=== PATIENT | male | born 1955 | race Caucasian/White ===

== ENCOUNTER → 2019-04-02 10:42 | Outpatient (BNVA) | payer OTHER, SELFPAY | PROVIDERS: Family Provider Physician Assistant; PCP Physician Assistant; Visit Provider Nurse Practitioner | DX: G89.29 Other chronic pain (principal); M54.41 Lumbago with sciatica, right side; M54.42 Lumbago with sciatica, left side; M25.562 Pain in left knee; E11.41 Type 2 diabetes mellitus with diabetic mononeuropathy; Z79.891 Long term (current) use of opiate analgesic | CPT/HCPCS: 99213 ==

== ENCOUNTER → 2019-05-15 09:34 | Outpatient (BNVA) | payer OTHER, SELFPAY | PROVIDERS: Family Provider Physician Assistant; PCP Physician Assistant; Referring Provider Internal Medicine; Visit Provider Nurse Practitioner | DX: M54.5 Low back pain (principal); Z79.891 Long term (current) use of opiate analgesic | CPT/HCPCS: 99214 ==

== ENCOUNTER → 2019-09-16 08:42 | Outpatient (BNVA) | payer OTHER, SELFPAY | PROVIDERS: Family Provider Physician Assistant; PCP Physician Assistant; Visit Provider Nurse Practitioner | DX: G89.29 Other chronic pain (principal); M54.9 Dorsalgia, unspecified; Z79.891 Long term (current) use of opiate analgesic | CPT/HCPCS: 99213 ==

== ENCOUNTER → 2019-12-25 08:23 | Outpatient (BNVA) | payer MEDICARE, SELFPAY | PROVIDERS: Family Provider Physician Assistant; PCP Physician Assistant; Referring Provider Physician Assistant; Visit Provider Internal Medicine | DX: E13.9 Other specified diabetes mellitus without complications (principal); E66.01 Morbid (severe) obesity due to excess calories; Z68.43 Body mass index [BMI] 50.0-59.9, adult; E78.5 Hyperlipidemia, unspecified; I10 Essential (primary) hypertension | CPT/HCPCS: 99204 ==

== ENCOUNTER 2020-05-02 09:50 | Outpatient (CLI) | payer OTHER, SELFPAY ==
--- NOTE | 2020-05-02 10:58 | PFTS_ITS ---
Date of Study:05/02/20 Date of Dictation: 05/02/2020 MECHANICS: Forced vital capacity (FVC) is normal. Forced expiratory volume in one second (FEV1) is normal . FEV1/FVC is normal . FLOW VOLUME LOOP: Normal . LUNG VOLUMES: Total lung capacity (TLC) is mildly reduced . Residual volume (RV) is mildly reduced. DIFFUSING CAPACITY FOR CARBON MONOXIDE: Normal . INTERPRETATION: The spirometry is normal. Mildly reduced lung volumes suggestive of restrictive lung disease. Normal gas transfer. Please correlate clinically. MTDD
== END 2020-05-02 09:51 | disposition home or self-care (01) ==
PROVIDERS: PCP Physician Assistant; Visit Provider Physician Assistant
DX: R05 Cough (principal)
CPT/HCPCS: 94010; 94726; 94729

== ENCOUNTER → 2020-06-14 09:41 | Outpatient (BNVA) | payer OTHER, SELFPAY | PROVIDERS: PCP Physician Assistant; Visit Provider Internal Medicine Rheumatology | DX: M19.90 Unspecified osteoarthritis, unspecified site (principal); Z79.899 Other long term (current) drug therapy; Z11.59 Encounter for screening for other viral diseases; Z11.1 Encounter for screening for respiratory tuberculosis; R76.8 Other specified abnormal immunological findings in serum; E11.65 Type 2 diabetes mellitus with hyperglycemia; E11.42 Type 2 diabetes mellitus with diabetic polyneuropathy; Z79.4 Long term (current) use of insulin | CPT/HCPCS: 99204 ==

== ENCOUNTER → 2020-07-20 10:49 | Outpatient (BNVA) | payer OTHER, SELFPAY | PROVIDERS: PCP Physician Assistant; Visit Provider Internal Medicine Rheumatology | DX: M19.90 Unspecified osteoarthritis, unspecified site (principal); Z11.59 Encounter for screening for other viral diseases; Z11.1 Encounter for screening for respiratory tuberculosis | CPT/HCPCS: 36415; 80076; 82565; 85025; 86140; 86480; 86704; 86803; 87340 ==

== ENCOUNTER 2020-08-18 15:18 | Outpatient (CLI) | payer OTHER, MEDICARE, SELFPAY ==
--- NOTE | 2020-08-18 15:45 | USCV_ITS ---
Manuel Somers Age: 65 Gender: M : 1955 Exam Date: 08/18/2020 15:40 Ordering Phys: Speedy Aparicio M.D ([email or web address]) Technologist: Exam Location: [facility] [place] Indication: SOB BP: 134 / 74 HR: 97 Rhythm: Sinus Technical Quality: Adequate MEASUREMENTS (Male / Female) Normal Values 2D ECHO LV Diastolic Diameter PLAX 3.5 cm 4.2 - 5.9 / 3.9 - 5.3 cm LV Systolic Diameter PLAX 2.8 cm IVS Diastolic Thickness 1.4 cm 0.6 - 1.0 / 0.6 - 0.9 cm IVS Systolic Thickness 1.8 cm LVPW Diastolic Thickness 1.1 cm 0.6 - 1.0 / 0.6 - 0.9 cm LVPW Systolic Thickness 1.6 cm LVOT Diameter 2.1 cm LV Ejection Fraction 2D Teich 39.0 % LV Ejection Fraction MOD 2C 67.9 % LV Ejection Fraction 2C AL 70.0 % LA Diameter 3.9 cm LA Width 5.3 cm LA Height 6.4 cm RA Width 4.1 cm RA Height 5.9 cm M-MODE LV Diastolic Diameter MM 5.0 cm 4.2 - 5.9 / 3.9 - 5.3 cm LV Systolic Diameter MM 3.3 cm LV Ejection Fraction MM Teich 61.2 % IVS Diastolic Thickness MM 1.3 cm 0.6 - 1.0 / 0.6 - 0.9 cm IVS Systolic Thickness MM 1.8 cm LVPW Diastolic Thickness MM 1.1 cm 0.6 - 1.0 / 0.6 - 0.9 cm LVPW Systolic Thickness MM 1.9 cm RV Diastolic Diameter MM 2.6 cm MV E Point Septal Separation 1.2 cm DOPPLER AV Peak Velocity 151.7 cm/s LVOT Peak Velocity 83.0 cm/s AV Area Cont Eq vti 2.2 cm squared AV Area Cont Eq pk 1.9 cm squared MV Area PHT 5.0 cm squared Mitral E to A Ratio 2.5 MV E' Velocity 61.4 cm/s Mitral E to MV E' Ratio 8.2 Mitral E to LV E' Lateral Ratio 7.9 Mitral E to LV E' Septal Ratio 8.6 TR Peak Velocity 120.3 cm/s TR Peak Gradient 5.8 mmHg PV Peak Velocity 129.0 cm/s FINDINGS Left Ventricle Normal left ventricular size. LV systolic function is normal with EF of 60-65%. No regional wall motion abnormalities. Diastolic function can not be assessed because of atrial fibrillation. Right Ventricle The right ventricle is normal in size and function. Right Atrium The right atrium is grossly normal sized Left Atrium The left atrium is grossly normal sized Mitral Valve Not well visualized. No significant stenosis or prolapse. There is no mitral regurgitation. Aortic Valve Not well visualized. No significant sclerosis or stenosis. There is no aortic regurgitation. Tricuspid Valve Not well visualized Pulmonic Valve Not visualized Pericardium Not well visualized Aorta Not well visualized CONCLUSIONS LV systolic function is normal with EF of 60-65% Diastolic function can not be assessed because of atrial fibrillation Valvular structures are not well visualized but no gross abnormalities noted Compared to prior echocardiogram from 09/24/2012, no signficant changes are noted Speedy Aparicio MD (Electronically Signed) Final Date: 18 Aug 2020 18:01 S
[2020-08-18] MEDS: perflutren protein-a microsphr 0.22 mg/mL SDV 3 mL IV (16:52)
== END 2020-08-18 15:19 | disposition home or self-care (01) ==
LOC: US 15:23
PROVIDERS: PCP Physician Assistant; Visit Provider Internal Medicine
DX: R06.02 Shortness of breath (principal)
CPT/HCPCS: 80048; 83880; C8924

== ENCOUNTER 2020-11-02 12:08 | Outpatient (CLI) | payer OTHER, MEDICARE, SELFPAY ==
[2020-11-02 13:29] LABS: Anion Gap 13.4 (5-19); Blood Urea Nitrogen 17 mg/dL (8-23); Calcium 8.8 mg/dL (8.5-10.5); Carbon Dioxide 28 mmol/L (22-29); Chloride 97 mmol/L (98-107); Glomerular Filtration Rate 84.2 mL/min (90-130); Glucose 323 mg/dL (65-115); NT Pro B Type Natriuretic Pept 203 pg/mL (0-125); Osmolality Calculated 292 mOsm/kg (285-295); Potassium 4.4 mmol/L (3.5-5.1); Sodium 134 mmol/L (136-145)
== END 2020-11-02 12:09 | disposition home or self-care (01) ==
PROVIDERS: PCP Physician Assistant; Visit Provider Internal Medicine Pulmonary Disease
DX: R22.43 Localized swelling, mass and lump, lower limb, bilateral (principal); R06.01 Orthopnea
CPT/HCPCS: 36415; 80048; 83735; 83880

== ENCOUNTER → 2021-01-04 08:24 | Outpatient (BNVA) | payer OTHER, SELFPAY | PROVIDERS: PCP Physician Assistant; Visit Provider Internal Medicine | DX: E11.40 Type 2 diabetes mellitus with diabetic neuropathy, unspecified (principal); E66.01 Morbid (severe) obesity due to excess calories; Z68.43 Body mass index [BMI] 50.0-59.9, adult; E78.5 Hyperlipidemia, unspecified; I10 Essential (primary) hypertension; Z79.4 Long term (current) use of insulin | CPT/HCPCS: 99214 ==

== ENCOUNTER → 2021-03-10 11:51 | Outpatient (BNVA) | payer OTHER, SELFPAY | PROVIDERS: PCP Physician Assistant; Visit Provider Internal Medicine | DX: R06.02 Shortness of breath (principal); E78.5 Hyperlipidemia, unspecified; I48.20 Chronic atrial fibrillation, unspecified | CPT/HCPCS: 80048; 83880; 85025 ==

== ENCOUNTER → 2021-07-06 09:15 | Outpatient (BNVA) | payer OTHER, SELFPAY | PROVIDERS: PCP Physician Assistant; Visit Provider Internal Medicine Rheumatology | DX: M15.9 Polyosteoarthritis, unspecified (principal); R76.8 Other specified abnormal immunological findings in serum; Z79.899 Other long term (current) drug therapy; E11.42 Type 2 diabetes mellitus with diabetic polyneuropathy; Z79.4 Long term (current) use of insulin | CPT/HCPCS: 99214 ==

== ENCOUNTER → 2021-09-15 09:07 | Outpatient (BNVA) | payer OTHER, SELFPAY | PROVIDERS: PCP Physician Assistant; Visit Provider Internal Medicine | DX: I10 Essential (primary) hypertension (principal); I48.20 Chronic atrial fibrillation, unspecified; E78.5 Hyperlipidemia, unspecified; E66.01 Morbid (severe) obesity due to excess calories; Z68.43 Body mass index [BMI] 50.0-59.9, adult; Z79.01 Long term (current) use of anticoagulants | CPT/HCPCS: 99214 ==

== ENCOUNTER → 2021-11-15 07:44 | Outpatient (BNVA) | payer OTHER, SELFPAY | PROVIDERS: PCP Physician Assistant; Referring Provider Family Medicine; Visit Provider Internal Medicine | DX: E13.65 Other specified diabetes mellitus with hyperglycemia (principal); E13.649 Other specified diabetes mellitus with hypoglycemia without coma; Z79.4 Long term (current) use of insulin; Z79.84 Long term (current) use of oral hypoglycemic drugs; E88.81 Metabolic syndrome and other insulin resistance; E78.5 Hyperlipidemia, unspecified; E66.01 Morbid (severe) obesity due to excess calories; Z68.43 Body mass index [BMI] 50.0-59.9, adult | CPT/HCPCS: 99215 ==

== ENCOUNTER 2022-01-20 20:35 | Inpatient (IN) | payer OTHER, SELFPAY ==
[2022-01-20] VITALS (15 sets, daily range): BP systolic 114–161; BP diastolic 66–84; PULSE 77–164; RESP 19–36; TEMP 37.6; O2SAT 95–99; BMI 58.2
--- NOTE | 2022-01-20 21:10 | XRR_ITS ---
PROCEDURE INFORMATION: Exam: XR Chest Exam date and time: 01/20/2022 9:25 PM Age: 66 years old Clinical indication: Shortness of breath; Additional info: SOB TECHNIQUE: Imaging protocol: Radiologic exam of the chest. Views: 1 view. COMPARISON: CR XR chest 2V* [id number] 03/09/2020 9:52 AM FINDINGS: Lungs: See Heart/Mediastinum finding. Pleural spaces: Unremarkable. No pleural effusion. No pneumothorax. Heart/Mediastinum: Cardiomegaly and mild pulmonary vascular congestion with minimal ground-glass airspace opacities suggestive of alveolar edema. Bones/joints: Unremarkable. XR/XR chest 1V portable [id number] IMPRESSION: Cardiomegaly and mild pulmonary vascular congestion with minimal ground-glass airspace opacities suggestive of alveolar edema.
--- NOTE | 2022-01-20 21:10 | ECG_ITS ---
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 Measurements Intervals [place] Rate: 94 P: IA: QRS: -52 QRSD: 110 T: 30 QT: 284 QTc: 357 Interpretive Statements ATRIAL FIBRILLATION LEFT AXIS DEVIATION [QRS AXIS < -30] PATTERN CONSISTENT WITH PULMONARY DISEASE INCOMPLETE RIGHT BUNDLE BRANCH BLOCK [90+ ms QRS DURATION, TERMINAL R IN V1/V2, 40+ ms S IN I/aVL/V4/V5/V6] NONSPECIFIC T-WAVE ABNORMALITY INTERPRETATION BASED ON A DEFAULT AGE OF 40 YEARS No previous ECG available for comparison Electronically Signed On 01-24-2022 0:16:35 CDT by Bridgette Staton M.D. [email or web address]
--- NOTE | 2022-01-20 21:13 | W.ED.SOB ---
HPI - SOB/Dyspnea General: Chief Complaint: Shortness of Breath/Dyspnea Stated Complaint: SOB Time Seen by Provider: 01/20/22 20:38 Source: patient History of Present Illness: HPI Narrative: 66-year-old male patient presenting with worsening shortness of breath over the past several days. He notes a cough with some sputum production that is gross in color. He denies any chest pain. He denies fever. He denies wheezing. He was given 2 breathing treatments in route by EMS with some improvement. He has noticed that his legs have increased in swelling recently. MD elicited complaint: shortness of breath Pertinent past history: congestive heart failure Onset (ago): day(s) Context: recent illness Timing: progressively worsening Severity: moderate Exacerbating factors: lying flat and exertion Relieving factors: oxygen Known history of: congestive heart failure Associated symptoms: Reports chest congestion, cough and nausea; Deny abdominal pain, chest pain, dizziness, fever(s) or vomiting Treatment prior to arrival: oxygen and bronchodilator Review of Systems Const: Denies: fever(s) ENMT: Reports: throat pain and hoarseness Card: Denies: chest pain Resp: Reports: chest congestion GI: Reports: nausea; Denies: abdominal pain or vomiting Skin/Breast: Denies: rash Neuro: Denies: dizziness PFSH ED PFSH: Medical History Anticoagulant long-term use Atrial fibrillation Chronic back pain Depression Diabetes mellitus type 2, uncontrolled Diabetic neuropathy Dyslipidemia High risk medication use Immunization counseling Inflammatory arthritis Obesity BARBARA (obstructive sleep apnea) Osteoarthritis Positive sm/MARKETING INFORMATION COORDINATOR antibody + MARKETING INFORMATION COORDINATOR antibody, negative Quinonez, negative DS DNA ab Surgical History History of arthroscopic knee surgery bilateral knees Status post ablation of atrial fibrillation Family History Father Family history of premature coronary artery disease Myocardial Infarction Mother Cancer Other CAD (coronary artery disease) Diabetes Hyperlipidemia Hypertension Rheumatoid arthritis Denies family history of Lupus Chronic kidney disease (CKD) Lung disease Stroke Social History Smoking and tobacco status: never smoked Second hand smoke exposure: Yes Smoking risk assessment/counseling performed?: Yes Alcohol intake: former Lives independently: Yes Household members: spouse Marital status: service: Yes Current occupational status: retired and disabled Pets and animals: No History of recent travel: No Current gender identity: Male Physical Exam Const: GENERAL APPEARANCE: cooperative and frail appearing NUTRITIONAL APPEARANCE: obese HENMT: COMMON NORMALS: normocephalic, atraumatic and Normal external nose present HEAD & SCALP: normocephalic and atraumatic FACE & SINUS: normal facial exam NOSE: Normal external nose present Eye: COMMON NORMALS: Equal, round and reactive pupils present and EOMs intact bilaterally PUPIL: Yes Equal, round and reactive pupils present Neck/C-Spine: GENERAL: Yes trachea midline Chest: CHEST: Yes Symmetrical chest wall rise and No tenderness Resp: COMMON NORMALS: normal respiratory effort and clear to auscultation bilaterally AUSCULTATION: clear to auscultation bilaterally and diminished lung sounds Cardio: RATE: tachycardic RHYTHM: abnormal rhythm irregularly irregular GI: COMMON NORMALS: Normal to inspection, nondistended, normoactive bowel sounds present and Soft to palpation PALPATION: Yes Soft to palpation Extremity: GENERAL: Yes edema (2+) Neuro: ROSE COMA SCALE: document GCS findings Rose coma scale eye opening: Spontaneous Rose coma scale verbal response: Orientated Rose coma scale motor response: Obey commands Rose coma scale total score: 15 Psych: COMMON NORMALS: mental status grossly normal and cooperative Course Vital Signs: Vital signs: Vital Signs Temperature 97.9 F 01/21/22 11:33 Pulse Rate 100 01/21/22 14:48 Respiratory Rate 18 01/21/22 14:05 Blood Pressure 107/64 01/21/22 11:33 Pulse Oximetry 98 01/21/22 14:05 Oxygen Delivery Me thod 01/21/22 14:05 Oxygen Flow Rate 3 01/21/22 14:05 MDM - SOB/Dyspnea Medical Decision Making Patient is oxygen dependent now. He is tachycardic, in atrial fibrillation. He has bilateral infiltrates on chest X-ray. As white blood cell count is 19.5. Is potassium is 3.2 and repleted. He has pulmonary vascular congestion on chest X-ray as well. His COVID-19 antigen is negative. Is BNP is only 613. He is given Iv lasix, nebulizer treatments, and antibiotics. He'll be admitted. Hospitalist will see the patient. Lab Data : 01/20/22 20:50 10/23/22 08:21 Labs/Radiology: Radiology Impressions Chest X-Ray 01/20/22 21:10 IMPRESSION: Cardiomegaly and mild pulmonary vascular congestion with minimal ground-glass airspace opacities suggestive of alveolar edema. Laboratory Results WBC 19.5 10^3/uL (4.0-10.0) H 01/20/22 20:50 RBC 4.98 10^6/uL (4.1-5.3) 01/20/22 20:50 Hgb 12.3 g/dL (11.7-16.6) 01/20/22 20:50 Hct 40.0 % (42.0-52.0) L 01/20/22 20:50 MCV 80.3 fl (80-94) 01/20/22 20:50 MCH 24.7 pg (28.0-34.0) L 01/20/22 20:50 MCHC 30.8 g/dL (30.0-36.0) 01/20/22 20:50 RDW 15.9 % (12.1-15.1) H 01/20/22 20:50 Plt Count 289 10^3/cmm (130-400) 01/20/22 20:50 MPV 9.7 fL (7.4-10.4) 01/20/22 20:50 Neut % (Auto) 83.5 % 01/20/22 20:50 Lymph % (Auto) 7.0 % 01/20/22 20:50 [place] % (Auto) 7.4 % 01/20/22 20:50 Eos % (Auto) 0.5 % 01/20/22 20:50 Baso % (Auto) 0.5 % 01/20/22 20:50 Neut # (Auto) 16.32 10^3/uL (1.8-7.7) H 01/20/22 20:50 Lymph # (Auto) 1.4 10^3/uL (0.8-4.8) 01/20/22 20:50 [place] # (Auto) 1.5 10^3/uL (0.2-0.9) H 01/20/22 20:50 Eos # (Auto) 0.1 10^3/uL (0.0-0.8) 01/20/22 20:50 Baso # (Auto) 0.1 10^3/uL (0.0-0.1) 01/20/22 20:50 Nucleated RBC % (auto) 0 % 01/20/22 20:50 Nucleated RBCs # 0.0 /100WBC 01/20/22 20:50 Specimen Type Arterial 01/20/22 21:17 Sample Site Radial, left 01/20/22 21:17 ABG pH 7.52 (7.35-7.45) H 01/20/22 21:17 ABG pCO2 43.5 mmHg (35-45) 01/20/22 21:17 ABG pO2 102.0 mmHg (80.0-100.0) H 01/20/22 21:17 ABG HCO3 35.1 mmol/L (22-26) H 01/20/22 21:17 ABG Base Excess 10.9 mmol/L (-2.0-2.0) H 01/20/22 21:17 Klever Test Pos 01/20/22 21:17 Hematocrit 38.1 % (42-52) L 01/20/22 21:17 Hgb O2 Saturation 96.3 % (95-100) 01/20/22 21:17 Carboxyhemoglobin 1.1 %THgb (0.4-20.1) 01/20/22 21:17 Methemoglobin 0.4 % (0.4-1.5) 01/20/22 21:17 Total Hemoglobin 12.4 g/dL (14-18) L 01/20/22 21:17 O2 Delivery Device Nc 01/20/22 21:17 O2 Liters/Min 4.0 % 01/20/22 21:17 Outside Sales Consultant ID [employer] 01/20/22 21:17 Sodium 128 mmol/L (136-145) L 01/20/22 20:50 Potassium 3.3 mmol/L (3.5-5.1) L 01/20/22 20:50 Chloride 86 mmol/L (98-107) L 01/20/22 20:50 Carbon Dioxide 33 mmol/L (22-29) H 01/20/22 20:50 Anion Gap 12.3 (5-19) 01/20/22 20:50 BUN 14 mg/dL (8-23) 01/20/22 20:50 Creatinine 1.0 mg/dL (0.7-1.2) 01/20/22 20:50 GFR Calculation 74.3 mL/min (90-130) L 01/20/22 20:50 Glucose 262 mg/dL (65-115) H 01/20/22 20:50 Calculated Osmolality 276 mOsm/kg (285-295) L 01/20/22 20:50 Lactic Acid 2.4 mmol/L (0.5-2.2) H 01/20/22 20:50 Calcium 9.3 mg/dL (8.5-10.5) 01/20/22 20:50 Magnesium 1.8 mg/dL (1.7-2.3) 01/20/22 20:50 Total Bilirubin 0.8 mg/dL (0.15-1.2) 01/20/22 20:50 AST 18 U/L (0-40) 01/20/22 20:50 ALT 13 U/L (0-41) 01/20/22 20:50 Alkaline Phosphatase 95 U/L (40-130) 01/20/22 20:50 NT-Pro-B Natriuret Pep 613 pg/mL (0-125) H 01/20/22 20:50 Total Protein 8.0 g/dL (6.6-8.7) 01/20/22 20:50 Albumin 3.4 g/dL (3.5-5.2) L 01/20/22 20:50 Globulin 4.6 g/dL (1.3-4.6) 01/20/22 20:50 Digoxin 1.1 ng/mL (0.6-1.2) 01/20/22 20:50 SARS-CoV-2 Ag (Rapid) Negative (Negative) 01/20/22 21:20 Discharge Plan Discharge Patient Disposition: Admitted As Inpatient Admit Provider: Sarahy Benitez Clinical Impression: Atrial fibrillation, Acute on chronic diastolic CHF (congestive heart failure), NYHA class 4, Community acquired pneumonia Condition: Stable Coding Level of Care Code ED Manager R D for Chg Fwd Exam Comprehensive
[2022-01-20 21:17] LABS: Basophils # 0.1 10^3/uL (0.0-0.1); Basophils % 0.5 %; Eosinophils # 0.1 10^3/uL (0.0-0.8); Eosinophils % 0.5 %; Hemoglobin 12.3 g/dL (11.7-16.6); Lymphocytes # 1.4 10^3/uL (0.8-4.8); Mean Corpuscular HGB Conc 30.8 g/dL (30.0-36.0); Mean Corpuscular Hemoglobin 24.7 pg (28.0-34.0); Mean Corpuscular Volume 80.3 fl (80-94); Mean Platelet Volume 9.7 fL (7.4-10.4); Monocytes # 1.5 10^3/uL (0.2-0.9); Monocytes % 7.4 %; Neutrophils # 16.32 10^3/uL (1.8-7.7); Neutrophils % 83.5 %; Nucleated Red Blood Cells % 0 %; Platelet Count 289 10^3/cmm (130-400); Red Blood Count 4.98 10^6/uL (4.1-5.3); Red Cell Distribution Width 15.9 % (12.1-15.1); White Blood Count 19.5 10^3/uL (4.0-10.0)
[2022-01-20 21:28] LABS: ABG PCO2 43.5 mmHg (35-45); ABG PH Result 7.52 (7.35-7.45); Arterial Blood Gas Hematocrit 38.1 % (42-52); Base Excess ABG 10.9 mmol/L (-2.0-2.0); Blood Gas Allen Test Pos; Blood Gas Operator Identificat WALCI; Blood Gas Sample Site Radial, left; Blood Gas Sample Type Arterial; Carboxyhemoglobin 1.1 %THgb (0.4-20.1); HCO3 ABG 35.1 mmol/L (22-26); HGB O2 Sat 96.3 % (95-100); Methemoglobin 0.4 % (0.4-1.5); Oxygen Device NC; Total Hemoglobin 12.4 g/dL (14-18)
[2022-01-20 21:31] LABS: Lactic Sepsis W/Reflex 2.4 mmol/L (0.5-2.2)
[2022-01-20 21:43] LABS: Alanine Aminotransferase 13 U/L (0-41); Albumin Level 3.4 g/dL (3.5-5.2); Alkaline Phosphatase 95 U/L (40-130); Anion Gap 12.3 (5-19); Aspartate Amino Transferase 18 U/L (0-40); Blood Urea Nitrogen 14 mg/dL (8-23); Calcium 9.3 mg/dL (8.5-10.5); Carbon Dioxide 33 mmol/L (22-29); Chloride 86 mmol/L (98-107); Creatinine Clr Calc Pharmacy 100.4028; Globulin 4.6 g/dL (1.3-4.6); Glomerular Filtration Rate 74.3 mL/min (90-130); Glucose 262 mg/dL (65-115); Magnesium 1.8 mg/dL (1.7-2.3); NT Pro B Type Natriuretic Pept 613 pg/mL (0-125); Osmolality Calculated 276 mOsm/kg (285-295); Potassium 3.3 mmol/L (3.5-5.1); Sodium 128 mmol/L (136-145); Total Bilirubin 0.8 mg/dL (0.15-1.2)
[2022-01-20 21:57] LABS: SARS Covid-2 Antigen Negative (Negative)
[2022-01-20] MEDS: FUROsemide 10 mg/mL SDV 10mL 80 MG IVP (22:05)
[2022-01-20 22:28] LABS: Digoxin 1.1 ng/mL (0.6-1.2)
[2022-01-20] MEDS: potassium chloride ER 20 mEq Tablet 40 MEQ PO (22:48)
[2022-01-20] MEDS: cefTRIAXone 1,000 MG in sodium chloride 0.9% (plus) 50 ML 100 MG IV (22:48)
[2022-01-20 23:02] LABS: Reflex Lactate Order REFLEX LACTIC ORDERD
[2022-01-21] VITALS (23 sets, daily range): BP systolic 107–144; BP diastolic 64–79; PULSE 73–123; RESP 15–25; TEMP 36.3–37.2; O2SAT 93–99
[2022-01-21] MEDS: azithromycin 500 MG in sodium chloride 0.9% 250 ML 250 MG IV (00:20)
[2022-01-21 02:07] LABS: Lactic Acid level (Lactate) 2.5 mmol/L (0.5-2.2)
--- NOTE | 2022-01-21 02:40 | PM.HP ---
Providers/Chief Complaint Admitting Physician: Sarahy Benitez MD Primary Care Provider: Marissa Ruiz Chief Complaint: SOB History of Present Illness Manuel Somers is a 66 year old male with past medical history of morbid obesity, chronic atrial fibrillation anticoagulated with direct thrombin inhibitor, diabetes, dyslipidemia, hypertension and sleep apnea. Presenting to the emergency room today with worsening shortness of breath over the past several days. He is also describing cough over the past 4 to 5 days with increasing greenish colored expectoration. Has had subjective fever and chills. He has been using inhalers at home without any significant benefit. He is also been having increasing lower extremity edema in spite of being on Bumex 2 mg p.o. twice daily. Denies any chest pain palpitations. Orthopnea present PND present Review of Systems General: Reports: 10 or more systems reviewed and unremarkable except in HPI and below Const: Denies: fever(s), chills or body aches Eyes: Denies: change in vision, blurry vision or photophobia ENMT: Reports: hoarseness; Denies: throat pain, enlarged tonsils, odynophagia or nasal congestion Card: Reports: edema, swelling of feet/ankles, dyspnea on exertion and orthopnea; Denies: chest pain, palpitations, irregular heart rhythm, lightheadedness or pre-syncope Resp: Denies: dyspnea, productive cough, non-productive cough, wheezing, stridor, pain on inspiration, change in phlegm color, hemoptysis or chest congestion GI: Denies: abdominal pain, nausea, vomiting, hematemesis, coffee ground emesis, dysphagia, heartburn, diarrhea, constipation, GI cramping, change in stool character, hematochezia or melena : Denies: flank pain, dysuria, urinary frequency, urinary urgency, urinary hesitancy or hematuria Musc: Denies: neck pain, back pain, extremity pain, joint swelling, joint warmth or deformity Neuro: Denies: headache(s), numbness in extremities, weakness in extremities, sensory changes, difficulty walking, frequent falls, dizziness, vertigo, behavioral changes, Slurred speech present or seizure-like activity Psych: Denies: anxiety, depression, suicidal ideation or homicidal ideation Endo: Denies: polyuria, polydipsia, tired all the time, cold intolerance or hot flashes Inderjit/Lymph: Denies: easy bruising or easy bleeding Medications/Allergies Home Medications Medication Instructions Recorded Confirmed Last Taken Type dabigatran etexilate 150 mg 150 mg PO BID 03/26/19 11/15/21 Unknown History capsule (Pradaxa) pravastatin 40 mg tablet 40 mg PO ONCE 03/26/19 11/15/21 Unknown History pregabalin 100 mg capsule 100 mg PO BID #60 caps 04/02/19 11/15/21 Unknown Rx digoxin 250 mcg (0.25 mg) tablet 250 mcg PO DAILY 12/25/19 11/15/21 Unknown History insulin regular hum U-500 conc 500 200 unit SUBCUT TID 12/25/19 11/15/21 Unknown History unit/mL subcutaneous soln (Humulin R U-500 (Concentrated) Insulin) magnesium oxide 800 mg PO BID 12/25/19 11/15/21 Unknown History blood-glucose meter,continuous #1 ea 01/09/21 11/15/21 Unknown Rx (Dexcom G6 Shoe Dyer misc) metoprolol tartrate 100 mg tablet 100 mg PO BID 03/10/21 11/15/21 Unknown History potassium chloride 20 mEq 20 meq PO BID #60 tabs 03/10/21 11/15/21 Unknown Rx tablet,extended release bumetanide 2 mg tablet 2 mg PO DIRECTED #270 tabs 03/20/21 11/15/21 Unknown Rx Diabetic shoes with 3 inserts #1 ea 04/25/21 11/15/21 Unknown Rx sulfasalazine 500 mg tablet 0.5 g PO BID #180 tabs 07/06/21 11/15/21 Unknown Rx blood-glucose sensor (Dexcom G6 #3 ea 10/23/21 11/15/21 Unknown Rx Sensor device) blood-glucose transmitter (Dexcom #1 ea 10/23/21 11/15/21 Unknown Rx G6 Transmitter device) semaglutide 0.25 mg or 0.5 mg (2 0.25 mg (0.2 mL) SUBCUT Q7D 2 11/17/21 11/17/21 Unknown Rx mg/1.5 mL) subcutaneous pen months #3 mL injector (Ozempic) semaglutide 1 mg/dose (4 mg/3 mL) 1 mg (0.75 mL) SUBCUT Q7D #3 mL 11/17/21 11/17/21 Unknown Rx subcutaneous pen injector (Ozempic) Allergies Allergy/AdvReac Type Severity Reaction Status Date / Time leflunomide AdvReac Intermediate rash Verified 11/15/21 08:15 PFSH Acute PFSH: Medical History Anticoagulant long-term use Atrial fibrillation Chronic back pain Depression Diabetes mellitus type 2, uncontrolled Diabetic neuropathy Dyslipidemia High risk medication use Immunization counseling Inflammatory arthritis Obesity BARBARA (obstructive sleep apnea) Osteoarthritis Positive sm/SUSTAINABLE AGRICULTURE SPECIALIST antibody + SUSTAINABLE AGRICULTURE SPECIALIST antibody, negative Quinonez, negative DS DNA ab Surgical History History of arthroscopic knee surgery bilateral knees Status post ablation of atrial fibrillation Family History Father Family history of premature coronary artery disease Myocardial Infarction Mother Cancer Other CAD (coronary artery disease) Diabetes Hyperlipidemia Hypertension Rheumatoid arthritis Denies family history of Lupus Chronic kidney disease (CKD) Lung disease Stroke Social History Smoking and tobacco status: never smoked Second hand smoke exposure: Yes Smoking risk assessment/counseling performed?: Yes Alcohol intake: former Lives independently: Yes Household members: spouse Marital status: service: Yes Current occupational status: retired and disabled Pets and animals: No History of recent travel: No Current gender identity: Male Vitals/I&O/Wt Last Vital Signs Temp 97.8 F 01/21/22 01:08 Pulse 99 01/21/22 01:08 Resp 15 01/21/22 01:08 BP 144/70 01/21/22 01:08 Pulse Ox 95 01/21/22 01:08 O2 Del Method 01/20/22 20:36 O2 Flow Rate 3 01/20/22 20:36 01/20/22 01/20/22 01/21/22 14:59 22:59 06:59 Intake Total 50 / 50 Balance 50 / 50 Weight last 48 hrs Weight 158.757 kg Physical Exam Narrative: General: No acute distress, AO x3 HEENT: PERRLA, pupils bilaterally equal and reactive, pallors not present Chest: Crackles to auscultation bilaterally CVS: S1-S2 regular, no murmurs, no tachycardia, no gallops, no rubs Abdomen: Soft, nontender, no organomegaly, bowel sounds present Neuro: No focal deficits, no facial deformity, AO x3, power 5/5 in all limbs EXT: Pitting edema bilateral lower extremities Data : 01/20/22 20:50 01/20/22 20:50 Other Labs: Radiology Impressions Chest X-Ray 01/20/22 21:10 IMPRESSION: Cardiomegaly and mild pulmonary vascular congestion with minimal ground-glass airspace opacities suggestive of alveolar edema. Laboratory Results WBC 19.5 10^3/uL (4.0-10.0) H 01/20/22 20:50 RBC 4.98 10^6/uL (4.1-5.3) 01/20/22 20:50 Hgb 12.3 g/dL (11.7-16.6) 01/20/22 20:50 Hct 40.0 % (42.0-52.0) L 01/20/22 20:50 MCV 80.3 fl (80-94) 01/20/22 20:50 MCH 24.7 pg (28.0-34.0) L 01/20/22 20:50 MCHC 30.8 g/dL (30.0-36.0) 01/20/22 20:50 RDW 15.9 % (12.1-15.1) H 01/20/22 20:50 Plt Count 289 10^3/cmm (130-400) 01/20/22 20:50 MPV 9.7 fL (7.4-10.4) 01/20/22 20:50 Neut % (Auto) 83.5 % 01/20/22 20:50 Lymph % (Auto) 7.0 % 01/20/22 20:50 Crenshaw % (Auto) 7.4 % 01/20/22 20:50 Eos % (Auto) 0.5 % 01/20/22 20:50 Baso % (Auto) 0.5 % 01/20/22 20:50 Neut # (Auto) 16.32 10^3/uL (1.8-7.7) H 01/20/22 20:50 Lymph # (Auto) 1.4 10^3/uL (0.8-4.8) 01/20/22 20:50 Crenshaw # (Auto) 1.5 10^3/uL (0.2-0.9) H 01/20/22 20:50 Eos # (Auto) 0.1 10^3/uL (0.0-0.8) 01/20/22 20:50 Baso # (Auto) 0.1 10^3/uL (0.0-0.1) 01/20/22 20:50 Nucleated RBC % (auto) 0 % 01/20/22 20:50 Nucleated RBCs # 0.0 /100WBC 01/20/22 20:50 Specimen Type Arterial 01/20/22 21:17 Sample Site Radial, left 01/20/22 21:17 ABG pH 7.52 (7.35-7.45) H 01/20/22 21:17 ABG pCO2 43.5 mmHg (35-45) 01/20/22 21:17 ABG pO2 102.0 mmHg (80.0-100.0) H 01/20/22 21:17 ABG HCO3 35.1 mmol/L (22-26) H 01/20/22 21:17 ABG Base Excess 10.9 mmol/L (-2.0-2.0) H 01/20/22 21:17 Klever Test Pos 01/20/22 21:17 Hematocrit 38.1 % (42-52) L 01/20/22 21:17 Hgb O2 Saturation 96.3 % (95-100) 01/20/22 21:17 Carboxyhemoglobin 1.1 %THgb (0.4-20.1) 01/20/22 21:17 Methemoglobin 0.4 % (0.4-1.5) 01/20/22 21:17 Total Hemoglobin 12.4 g/dL (14-18) L 01/20/22 21:17 O2 Delivery Device Nc 01/20/22 21:17 O2 Liters/Min 4.0 % 01/20/22 21:17 Anvilsmith ID Crissy 01/20/22 21:17 Sodium 128 mmol/L (136-145) L 01/20/22 20:50 Potassium 3.3 mmol/L (3.5-5.1) L 01/20/22 20:50 Chloride 86 mmol/L (98-107) L 01/20/22 20:50 Carbon Dioxide 33 mmol/L (22-29) H 01/20/22 20:50 Anion Gap 12.3 (5-19) 01/20/22 20:50 BUN 14 mg/dL (8-23) 01/20/22 20:50 Creatinine 1.0 mg/dL (0.7-1.2) 01/20/22 20:50 GFR Calculation 74.3 mL/min (90-130) L 01/20/22 20:50 Glucose 262 mg/dL (65-115) H 01/20/22 20:50 POC Glucose 326 mg/dL (70-110) H 01/21/22 06:22 Calculated Osmolality 276 mOsm/kg (285-295) L 01/20/22 20:50 Lactic Acid 2.4 mmol/L (0.5-2.2) H 01/20/22 20:50 Lactic Acid (Sepsis) 2.5 mmol/L (0.5-2.2) H 01/21/22 01:45 Calcium 9.3 mg/dL (8.5-10.5) 01/20/22 20:50 Magnesium 1.8 mg/dL (1.7-2.3) 01/20/22 20:50 Total Bilirubin 0.8 mg/dL (0.15-1.2) 01/20/22 20:50 AST 18 U/L (0-40) 01/20/22 20:50 ALT 13 U/L (0-41) 01/20/22 20:50 Alkaline Phosphatase 95 U/L (40-130) 01/20/22 20:50 NT-Pro-B Natriuret Pep 613 pg/mL (0-125) H 01/20/22 20:50 Total Protein 8.0 g/dL (6.6-8.7) 01/20/22 20:50 Albumin 3.4 g/dL (3.5-5.2) L 01/20/22 20:50 Globulin 4.6 g/dL (1.3-4.6) 01/20/22 20:50 Digoxin 1.1 ng/mL (0.6-1.2) 01/20/22 20:50 SARS-CoV-2 Ag (Rapid) Negative (Negative) 01/20/22 21:20 Micro: Microbiology 01/20/22 22:30 Blood Culture - Preliminary Blood SPECIMEN COLLECTED 01/20/22 22:30 Blood Culture - Preliminary Blood SPECIMEN COLLECTED A&P Assessment and plan (1) Acute on chronic diastolic CHF (congestive heart failure), NYHA class 4: Patient with a known past medical history as noted above presenting today with worsening dyspnea over the last several days, increasing lower extremity edema, chest x-ray with bilateral infiltrates which appear to be most consistent with pulmonary edema. Bumex 2 mg IV every 12 hours, monitor renal function and urine output closely, titrate based on this further doses. Denies any current chest pain. Last echocardiogram from 07/2020 with LVEF of 60 to 65%, diastolic function could not be estimated at the time due to A. fib. EKG shows atrial fibrillation, heart rate currently ranging between 90-1 10, will start home dose of metoprolol 100 mg p.o. twice daily, one-time dose of metoprolol 5 mg IV now. Is currently on anticoagulation with Pradaxa. Denies any current chest pain Leukocytosis noted at 19,000, no chest x-ray does not appear grossly consistent with community-acquired pneumonia, cannot exclude this possibility at this time. Will check procalcitonin. Empiric ceftriaxone and azithromycin while undergoing infectious work-up. Blood culture taken in the ER and pending at this time. Alternate differential include viral versus bacterial bronchitis which triggered the current exacerbation. DuoNeb inhalation every 6 hours Supplemental O2 to keep saturation 90 to 92% Will continue home dose of insulin U500, patient has a history of significant insulin resistance. (2) Insulin resistance: (3) Dyspnea: Qualifiers: Dyspnea type: orthopnea Qualified Code(s): R06.01 - Orthopnea (4) Restrictive lung disease secondary to obesity: (5) BARBARA (obstructive sleep apnea): (6) Atrial fibrillation: Qualifiers: Atrial fibrillation type: unspecified chronic Qualified Code(s): I48.20 - Chronic atrial fibrillation, unspecified Attestations Medical Necessity Statement*: Anticipate greater than 2 midnight admission for IV diuresis for acute on chronic CHF, IV antibiotics, close monitoring of renal function and urine output while on diuresis. Coding Level of Care Code Acute Lamination Inspector for [facility] Diagnoses Acute on chronic diastolic CHF (congestive heart failure), NYHA class 4 I50.33 Insulin resistance E88.81 Dyspnea R06.01 Dyspnea type: orthopnea Restrictive lung disease secondary to obesity J98.4; E66.9 BARBARA (obstructive sleep apnea) G47.33 Atrial fibrillation I48.20 Atrial fibrillation type: unspecified chronic
[2022-01-21] MEDS: ipratropium-albuterol 3 mL Neb INHALATION ×4 (02:54→19:53)
[2022-01-21] MEDS: FUROsemide 10 mg/mL SDV 4mL 40 MG IVP (03:21)
[2022-01-21 06:37] LABS: Glucose Point of Care 326 mg/dL (70-110)
--- NOTE | 2022-01-21 07:07 | PC.NURSE ---
Bedside report completed with CARLITO Esposito.
[2022-01-21] MEDS: bumetanide 0.25 mg/mL SDV 10 mL 2 MG IVP ×2 (08:19→20:28)
[2022-01-21] MEDS: metoprolol tartrate 1 mg/1 mL SDV 5 mL 5 MG IVP (08:19)
[2022-01-21] MEDS: potassium chloride ER 20 mEq Tablet 40 MEQ PO (08:20)
[2022-01-21] MEDS: digoxin 250 mcg Tablet PO (08:21)
[2022-01-21] MEDS: azithromycin 250 mg Tablet 500 MG PO (08:21)
[2022-01-21] MEDS: atorvastatin 40 mg Tablet 20 MG PO (08:21)
[2022-01-21] MEDS: metoprolol tartrate 50 mg Tablet 100 MG PO ×2 (08:21→17:46)
[2022-01-21] MEDS: pantoprazole DR 40 mg Tablet PO (08:24)
[2022-01-21] MEDS: pregabalin 100 mg Capsule PO ×2 (08:24→17:47)
[2022-01-21 09:16] LABS: Alanine Aminotransferase 14 U/L (0-41); Albumin Level 3.1 g/dL (3.5-5.2); Alkaline Phosphatase 79 U/L (40-130); Anion Gap 15.2 (5-19); Aspartate Amino Transferase 14 U/L (0-40); Blood Urea Nitrogen 15 mg/dL (8-23); Calcium 9.2 mg/dL (8.5-10.5); Carbon Dioxide 31 mmol/L (22-29); Chloride 90 mmol/L (98-107); Creatinine Clr Calc Pharmacy 91.2753; Globulin 4.5 g/dL (1.3-4.6); Glomerular Filtration Rate 66.6 mL/min (90-130); Glucose 314 mg/dL (65-115); Magnesium 1.8 mg/dL (1.7-2.3); Osmolality Calculated 289 mOsm/kg (285-295); Potassium 3.2 mmol/L (3.5-5.1); Sodium 133 mmol/L (136-145); Total Bilirubin 0.9 mg/dL (0.15-1.2); Total Protein 7.6 g/dL (6.6-8.7)
[2022-01-21 09:46] LABS: Procalcitonin 0.19 ng/mL (0-0.5)
--- NOTE | 2022-01-21 10:30 | PC.NURSE ---
Vital signs improved after Metoprolol and Bumex IV meds admin. Heart rate decreased from 140's
[2022-01-21 11:05] LABS: Glucose Point of Care 472 mg/dL (70-110)
--- NOTE | 2022-01-21 11:38 | PM.MISC ---
Miscellaneous Note Note: Seen this AM. Continue management as per history physical document. Patient states he is comfortable at this time in bed. Awaiting home medication list from patient. Family will be bringing in from insulin from home.
--- NOTE | 2022-01-21 14:35 | PC.PHAR ---
Pt takes and has requested the use of his insulin, U-500 insulin (200 units QID) at home, spoke with and discussed risks with both attending and nurse. Counseled nurse on importance of administering all doses using the pt provided U-500 insulin syringes and the high risk of med errors. As well as the importance of proper handoff with other nursing staff. Please contact pharmacy with any provided questions and keep medication and special U-500 insulin syringes together!
[2022-01-21 14:48] LABS: Glucose Point of Care 380 mg/dL (70-110)
[2022-01-21] MEDS: insulin lispro 100 unit/1 mL 15 UNIT SUBCUT (16:20)
[2022-01-21 17:06] LABS: Glucose Point of Care 318 mg/dL (70-110)
--- NOTE | 2022-01-21 17:42 | PC.NURSE ---
home insulin administered per order, second nurse verify by CARLITO Castro
--- NOTE | 2022-01-21 19:48 | PC.NURSE ---
Bedside report completed with CARLITO Esposito.
--- NOTE | 2022-01-21 20:22 | PC.NURSE ---
Shift Note: Pt has sat on side of bed for most of shift. He did sit in recliner briefly but had difficulty getting out of it due to my knees . His breathing has improved, he can carry a full conversation without soundly like he is gasping at this time. He has been getting off be, without O2, and ambulating to bathroom . He has made several trips today. His brought in his hoome Insulin, Humilin R, with syringes. This was thoroughly discussed with CARLITO Esposito and patient at shift report. IC changed in tub for insulin. Frequent safety and comfort rounds continue. Orders and/or nursing care completed as indicated. Patient monitored for response to intervention and treatment(s). Education provided includes Lantus, Regular insulin, Protonix, metoprolol, bumex and plan of care. Patient and/or outreach representative verbalized understanding of plan of care and all medications discussed. . Will continue to monitor.
[2022-01-21 20:49] LABS: Estmated Average Glucose 177; Hemoglobin A1C 7.8 % (4.0-6.0)
[2022-01-21 20:55] LABS: Glucose Point of Care 168 mg/dL (70-110)
[2022-01-21] MEDS: cefTRIAXone 1,000 MG in sodium chloride 0.9% (plus) 50 ML 100 MG IV (22:05)
[2022-01-21] MEDS: insulin glargine 100 units/1 mL 20 UNIT SUBCUT (22:12)
[2022-01-22] VITALS (11 sets, daily range): BP systolic 110–133; BP diastolic 69–82; PULSE 88–110; RESP 17–20; TEMP 36.3–36.6; O2SAT 93–98
[2022-01-22] MEDS: ipratropium-albuterol 3 mL Neb INHALATION ×4 (03:01→19:59)
--- NOTE | 2022-01-22 03:54 | PC.NURSE ---
patient chose to take lantus only at bedtime, refused his regular scheduled insulin, in fear that blood sugar would probably drop in waste disposal leakage tester hours, at approx 3 am, blood sugar dropped to 64, snack provided, rebounded quickly, patient asymptomatic. remains at bedside.
[2022-01-22 04:49] LABS: Basophils # 0.1 10^3/uL (0.0-0.1); Basophils % 0.6 %; Eosinophils # 0.2 10^3/uL (0.0-0.8); Eosinophils % 1.5 %; Hematocrit 40.3 % (42.0-52.0); Lymphocytes # 2.9 10^3/uL (0.8-4.8); Lymphocytes % 18.6 %; Mean Corpuscular HGB Conc 29.8 g/dL (30.0-36.0); Mean Corpuscular Hemoglobin 24.8 pg (28.0-34.0); Mean Corpuscular Volume 83.3 fl (80-94); Mean Platelet Volume 9.8 fL (7.4-10.4); Monocytes % 6.4 %; Neutrophils # 11.01 10^3/uL (1.8-7.7); Neutrophils % 71.9 %; Nucleated Red Blood Cells % 0 %; Platelet Count 269 10^3/cmm (130-400); Red Blood Count 4.84 10^6/uL (4.1-5.3); Red Cell Distribution Width 15.9 % (12.1-15.1); White Blood Count 15.3 10^3/uL (4.0-10.0)
[2022-01-22 05:21] LABS: Alanine Aminotransferase 15 U/L (0-41); Albumin Level 2.9 g/dL (3.5-5.2); Alkaline Phosphatase 79 U/L (40-130); Aspartate Amino Transferase 18 U/L (0-40); Blood Urea Nitrogen 18 mg/dL (8-23); Calcium 9.7 mg/dL (8.5-10.5); Carbon Dioxide 32 mmol/L (22-29); Chloride 94 mmol/L (98-107); Creatinine Clr Calc Pharmacy 100.4028; Globulin 4.7 g/dL (1.3-4.6); Glomerular Filtration Rate 74.3 mL/min (90-130); Glucose 82 mg/dL (65-115); Osmolality Calculated 289 mOsm/kg (285-295); Sodium 139 mmol/L (136-145); Total Bilirubin 0.4 mg/dL (0.15-1.2); Total Protein 7.6 g/dL (6.6-8.7)
[2022-01-22 05:24] LABS: Anion Gap 16.5 (5-19); Potassium 3.5 mmol/L (3.5-5.1)
[2022-01-22 06:35] LABS: Glucose Point of Care 106 mg/dL (70-110)
[2022-01-22] MEDS: bumetanide 0.25 mg/mL SDV 10 mL 2 MG IVP ×2 (08:30→18:22)
[2022-01-22] MEDS: pregabalin 100 mg Capsule PO ×2 (08:31→18:22)
[2022-01-22] MEDS: azithromycin 250 mg Tablet 500 MG PO (08:32)
[2022-01-22] MEDS: pantoprazole DR 40 mg Tablet PO (08:33)
[2022-01-22] MEDS: digoxin 250 mcg Tablet PO (08:38)
[2022-01-22] MEDS: metoprolol tartrate 50 mg Tablet PO ×2 (09:21→18:23)
--- NOTE | 2022-01-22 10:40 | PC.CHAP ---
Pastoral Care Encounter/Spiritual Assessment Type of Contact [] Declined after school program teacher visit [x] Patient/Family/Request visit [] Outpatient visit [] Follow-up visit [] Physician referral [] Code/Alert [x] Routine visit [] Staff referral [] Actively dying [] Patient sleeping [] Family support [] [] Out of room [] Palliative care [] [] Receiving care in room [] Pre-surgical visit [] Trauma [] Long length of stay [] ICU visit [] Other: Relational/Emotional Strength [] Patient feels connected with others/family/visitors/staff [] Distress [] Loneliness/isolation [] Abandonment Spirituality of Patient [] Person of Katya [] Attends Zoroastrianism of their Katya [] Believes in Prayer [] Reads Bible or Bahai materials [x] There are Spiritual issues to be addressed Order Expediter Interventions [] Prayer [] Active listening [] Non-anxious presence [] Spiritual/emotional support [] Crisis/trauma care [] Spiritual counseling [] Bereavement support [] Provided bereavement packet [] Provided Bible/devotional materials [] Provided toy/stuffed animal, coloring book to patient or family member [] Provided Communion [] Anointing/[place] [] Salvation [x] Completed spiritual assessment [] Other: Impact on Illness or Injury [] Angry [] Fearful [] Anxious [] Often cries [] Exhaustion [] Unable to work [] Unable to attend mormon [] Unable to walk/stand [] Unable to read [] Unable to drive [] Unable to eat/drink [] Unable to sleep [] Unable to be with family [] Patient intubated [] Other: Summary Time spent with patient
[2022-01-22] MEDS: insulin lispro 100 unit/1 mL SUBCUT ×2 (12:13→18:23)
--- NOTE | 2022-01-22 13:37 | PM.PN ---
Subjective Subjective: Seen this morning. No acute events overnight. Blood sugar better controlled with addition of Lantus. Patient not monitoring his urine output has refused to place a Zheng. However he says he is peeing as usual and not more since having IV Bumex. is present at bedside. Still endorses orthopnea Vitals/I&O/Wt Last Vital Signs Temp 97.9 F 01/22/22 08:00 Pulse 97 01/22/22 13:20 Resp 20 H 01/22/22 13:15 BP 116/70 01/22/22 12:00 Pulse Ox 96 01/22/22 13:15 O2 Del Method 01/22/22 13:15 O2 Flow Rate 2 01/22/22 13:15 01/21/22 01/22/22 01/22/22 22:59 06:59 14:59 Intake Total 480 / 960 Output Total 550 / 550 Balance 480 / 960 -550 / -550 Weight last 48 hrs Weight 158.757 kg Physical Exam Narrative: General: No acute distress, AO x3 HEENT: EOMI, on 2 L nasal cannula Chest: Crackles to auscultation bilaterally, CVS: S1-S2 regular, no murmurs, Abdomen: Soft, nontender, no organomegaly, bowel sounds present, obese rounded abdomen Neuro: Nonfocal EXT: Pitting edema bilateral lower extremities, pedal edema present bilateral feet as well. Data : 01/22/22 03:55 01/22/22 03:55 Micro: Microbiology 01/20/22 22:30 Blood Culture - Preliminary Blood NEGATIVE TO DATE 01/20/22 22:30 Blood Culture - Preliminary Blood NEGATIVE TO DATE A&P Assessment and plan (1) Acute on chronic diastolic CHF (congestive heart failure), NYHA class 4: Patient with a known past medical history as noted above presenting today with worsening dyspnea over the last several days, increasing lower extremity edema, chest x-ray with bilateral infiltrates which appear to be most consistent with pulmonary edema. Continue Bumex 2 mg IV every 12 hours. Patient is refusing a Zheng at this time. Continue to monitor strict input output. Counseled patient of this as well. Denies any current chest pain. Last echocardiogram from 07/2020 with LVEF of 60 to 65%, diastolic function could not be estimated at the time due to A. fib. EKG shows atrial fibrillation, continue metoprolol 50 twice daily, home dose Continue Pradaxa Denies any current chest pain Leukocytosis noted at 19,000 at admission, WBC count trending down to 15,000. No evidence of pneumonia on x-ray. Procalcitonin negative. COVID-negative Continue empiric ceftriaxone and azithromycin while undergoing infectious work-up. Blood cultures negative to date DuoNeb inhalation every 6 hours Supplemental O2 to keep saturation 90 to 92% Hold home dose of regular insulin. Continue on Lantus 15 daily. Continue on Premeal insulin. Continue to monitor blood sugars. Check echo Repeat chest x-ray in a.m. (2) Insulin resistance: Patient last saw Dr. DOTSON in October 2021. She prescribed him with Jardiance and Ozempic. I would ask patient if he is still on those medications. His home insulin is regular insulin double concentrated. Patient normally takes 200 Premeal. However he sometimes forgets to take it and then takes extra to make up for the loss. Patient wearing a Dexcom sensor. Target sugars should be below 180 as per his vibratory pile driver as well. He has severe insulin resistance. I will place him on Lantus 15 units daily and continue Premeal insulin 20 units 3 times daily and monitor patient. (3) Dyspnea: Shortness of breath is improved however still has orthopnea. Qualifiers: Dyspnea type: orthopnea Qualified Code(s): R06.01 - Orthopnea (4) Restrictive lung disease secondary to obesity: (5) BARBARA (obstructive sleep apnea): CPAP at night (6) Atrial fibrillation: Continue metoprolol and Pradaxa Attestations Medical Necessity Statement*: Expect patient to stay in the hospital for another 48 to 72 hours due to fluid overload. Continue IV diuresis at this time. Coding Level of Care Code Acute Smoked Meat Preparer for [facility] Diagnoses Acute on chronic diastolic CHF (congestive heart failure), NYHA class 4 I50.33 Insulin resistance E88.81 Dyspnea R06.01 Dyspnea type: orthopnea Restrictive lung disease secondary to obesity J98.4; E66.9 BARBARA (obstructive sleep apnea) G47.33 Atrial fibrillation I48.91
--- NOTE | 2022-01-22 13:44 | USCV_ITS ---
Manuel Somers Age: 66 Gender: M : 1955 Exam Date: 01/22/2022 14:35 Ordering Phys: Richa Talavera MD Technologist: Tu Jara Exam Location: [facility] [place] Indication: worsening heart failure BP: 116 / 70 HR: 109 Rhythm: Atrial fibrillation Technical Quality: Adequate MEASUREMENTS (Male / Female) Normal Values 2D ECHO LV Diastolic Diameter PLAX 3.1 cm 4.2 - 5.9 / 3.9 - 5.3 cm LV Systolic Diameter PLAX 1.8 cm IVS Diastolic Thickness 1.3 cm 0.6 - 1.0 / 0.6 - 0.9 cm IVS Systolic Thickness 1.8 cm LVPW Diastolic Thickness 2.1 cm 0.6 - 1.0 / 0.6 - 0.9 cm LVPW Systolic Thickness 2.0 cm LVOT Diameter 2.0 cm LV Ejection Fraction 2D Teich 73.0 % LV Ejection Fraction MOD 2C 72.7 % LV Ejection Fraction 2C AL 72.3 % LA Diameter 4.0 cm LA Width 4.0 cm LA Height 4.8 cm RA Width 4.0 cm RA Height 4.8 cm Aorta at Sinotubular Diameter 3.0 cm IVC Diameter 2.0 cm M-MODE Aortic Annulus Diameter 3.0 cm LA Ao Ratio MM 1.4 MV E Point Septal Separation 0.4 cm DOPPLER AV Peak Velocity 165.0 cm/s LVOT Peak Velocity 89.0 cm/s AV Area Cont Eq vti 2.0 cm squared AV Area Cont Eq pk 1.7 cm squared MV Peak Velocity 131.0 cm/s MV Area PHT 5.0 cm squared MV E' Velocity 51.5 cm/s Mitral E to MV E' Ratio 5.5 Mitral E to LV E' Lateral Ratio 5.6 Mitral E to LV E' Septal Ratio 5.5 TR Peak Velocity 111.4 cm/s TR Peak Gradient 5.0 mmHg TR Mean Velocity 87.9 cm/s TR Mean Gradient 3.1 mmHg TR Velocity Time Integral 17.6 cm Right Atrial Pressure 3.0 mmHg Pulmonary Artery Systolic Pressu 8.0 mmHg PV Peak Velocity 114.7 cm/s RV Acceleration Time 0.1 s RV Ejection Time 0.2 s RV AcT/ET 0.5 FINDINGS Left Ventricle Normal left ventricular size and systolic function, EF 68 %. No regional wall motion abnormalities. Right Ventricle Normal right ventricular size and systolic function. Right Atrium Mildly increased right atrial size. Left Atrium Mildly increased left atrial size. Mitral Valve Thickened mitral valve. Aortic Valve No gross abnormalities noted Tricuspid Valve No gross abnormalities noted Pulmonic Valve Pulmonic valve not well visualized. Pericardium No pericardial effusion. Aorta Normal aortic root IVC Inferior vena cava not visualized. CONCLUSIONS Normal left ventricular size and systolic function, EF 68 %. No regional wall motion abnormalities. Thickened mitral valve. Mild biatrial enlargement. Thickened mitral valve. There is no pericardial effusion. There are no intracardiac masses. Echo contrast (Optison )was used to delineate the LV cavity and evaluate the LV ejection fraction Dr Bridgette Staton MD FACC (Electronically Signed) Final Date: 22 January 2022 23:33 S
[2022-01-22] MEDS: perflutren protein-a microsphr 0.22 mg/mL SDV 3 mL IV (15:29)
[2022-01-22 21:05] LABS: Glucose Point of Care 320 mg/dL (70-110)
[2022-01-22] MEDS: insulin glargine 100 units/1 mL 15 UNIT SUBCUT (22:06)
[2022-01-22] MEDS: cefTRIAXone 1,000 MG in sodium chloride 0.9% (plus) 50 ML 100 MG IV (23:07)
[2022-01-23] VITALS (13 sets, daily range): BP systolic 101–145; BP diastolic 51–88; PULSE 68–108; RESP 16–20; TEMP 36.4–36.8; O2SAT 92–99
[2022-01-23] MEDS: bumetanide 0.25 mg/mL SDV 10 mL 2 MG IVP ×3 (02:43→18:06)
[2022-01-23] MEDS: ipratropium-albuterol 3 mL Neb INHALATION ×4 (03:08→20:25)
[2022-01-23 05:01] LABS: Basophils # 0.1 10^3/uL (0.0-0.1); Basophils % 0.5 %; Eosinophils # 0.2 10^3/uL (0.0-0.8); Eosinophils % 1.7 %; Hematocrit 38.2 % (42.0-52.0); Hemoglobin 11.6 g/dL (11.7-16.6); Lymphocytes # 2.2 10^3/uL (0.8-4.8); Lymphocytes % 18.3 %; Mean Corpuscular HGB Conc 30.4 g/dL (30.0-36.0); Mean Corpuscular Hemoglobin 24.9 pg (28.0-34.0); Mean Platelet Volume 9.9 fL (7.4-10.4); Monocytes # 0.9 10^3/uL (0.2-0.9); Monocytes % 7.3 %; Neutrophils # 8.57 10^3/uL (1.8-7.7); Neutrophils % 71.4 %; Nucleated Red Blood Cells % 0 %; Platelet Count 262 10^3/cmm (130-400); Red Blood Count 4.66 10^6/uL (4.1-5.3); Red Cell Distribution Width 16.1 % (12.1-15.1)
[2022-01-23 05:17] LABS: Blood Urea Nitrogen 15 mg/dL (8-23); Calcium 9.4 mg/dL (8.5-10.5); Carbon Dioxide 33 mmol/L (22-29); Chloride 92 mmol/L (98-107); Creatinine Clr Calc Pharmacy 100.4028; Glomerular Filtration Rate 74.3 mL/min (90-130); Glucose 301 mg/dL (65-115); Magnesium 1.8 mg/dL (1.7-2.3); Osmolality Calculated 292 mOsm/kg (285-295); Sodium 135 mmol/L (136-145)
[2022-01-23 05:21] LABS: Anion Gap 13.6 (5-19); Potassium 3.6 mmol/L (3.5-5.1)
[2022-01-23 08:06] LABS: Glucose Point of Care 290 mg/dL (70-110)
[2022-01-23] MEDS: insulin lispro 100 unit/1 mL SUBCUT ×4 (08:51→21:38)
[2022-01-23] MEDS: metoprolol tartrate 50 mg Tablet PO ×2 (08:52→18:06)
[2022-01-23] MEDS: pantoprazole DR 40 mg Tablet PO (08:52)
[2022-01-23] MEDS: pregabalin 100 mg Capsule PO ×2 (08:52→18:06)
[2022-01-23] MEDS: digoxin 250 mcg Tablet PO (08:54)
--- NOTE | 2022-01-23 10:16 | P.PN_ITS ---
Subjective Subjective: seen this AM. no acute events overnight 3L urine output in last 24 hours pt does not feel too much better. still has LE edema and orthopnea Vitals/I&O/Wt Last Vital Signs Temp 97.8 F 01/23/22 07:19 Pulse 80 01/23/22 08:54 Resp 16 01/23/22 08:00 BP 101/51 01/23/22 07:19 Pulse Ox 98 01/23/22 08:00 O2 Del Method 01/23/22 08:00 O2 Flow Rate 2 01/23/22 08:00 01/22/22 01/23/22 01/23/22 22:59 06:59 14:59 Intake Total 480 / 480 Output Total 1600 / 2650 1000 / 3650 Balance -1600 / -2650 -1000 / -3650 480 / 480 Physical Exam Narrative: General: No acute distress, AO x3 HEENT: EOMI, on 2 L nasal cannula Chest: Crackles to auscultation bilaterally, improved since yesterday CVS: S1-S2 regular, no murmurs, Abdomen: Soft, nontender, no organomegaly, bowel sounds present, obese rounded abdomen Neuro: Nonfocal EXT: Pitting edema bilateral lower extremities, pedal edema present bilateral feet as well. very minimal wrinkling noted by ankles Data : 01/23/22 04:22 01/23/22 04:22 A&P Assessment and plan (1) Acute on chronic diastolic CHF (congestive heart failure), NYHA class 4: Patient with a known past medical history as noted above presenting today with worsening dyspnea over the last several days, increasing lower extremity edema, chest x-ray with bilateral infiltrates which appear to be most consistent with pulmonary edema. Continue Bumex 2 mg IV every 12 hours. Patient is refusing a Zheng at this time. Continue to monitor strict input output. Counseled patient of this as well. Denies any current chest pain. Last echocardiogram from 07/2020 with LVEF of 60 to 65%, diastolic function could not be estimated at the time due to A. fib. EKG shows atrial fibrillation, continue metoprolol 50 twice daily, home dose Continue Pradaxa Denies any current chest pain Leukocytosis noted at 19,000 at admission, WBC count trending down to 15,000. No evidence of pneumonia on x-ray. Procalcitonin negative. COVID-negative Continue empiric ceftriaxone and azithromycin while undergoing infectious work- up. Blood cultures negative to date DuoNeb inhalation every 6 hours Supplemental O2 to keep saturation 90 to 92% Hold home dose of regular insulin. Continue on Lantus 20 daily. Continue on Premeal insulin. Continue to monitor blood sugars. Normal left ventricular size and systolic function, EF 68 %. ?No regional wall motion abnormalities. Repeat chest x-ray today. (2) Insulin resistance: Patient last saw Dr. DOTSON in October 2021. She prescribed him with Jardiherminia and Ozempnoé. I would ask patient if he is still on those medications. His home insulin is regular insulin double concentrated. Patient normally takes 200 Premeal. However he sometimes forgets to take it and then takes extra to make up for the loss. Patient wearing a Dexcom sensor. 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 He has severe insulin resistance. continue lantus 20 units nightly (increase from 15 units yesterday). WIll add on sliding scale as well. (3) Dyspnea: Shortness of breath is improved however still has orthopnea. Qualifiers: Dyspnea type: orthopnea Qualified Code(s): R06.01 - Orthopnea (4) Restrictive lung disease secondary to obesity: (5) BARBARA (obstructive sleep apnea): CPAP at night (6) Atrial fibrillation: Continue metoprolol and Pradaxa Attestations Medical Necessity Statement*: Expect patient to stay in the hospital for another 48 to 72 hours due to fluid overload. Continue IV diuresis at this time. Coding Level of Care Code Acute Packer Fuser for Edwin Mcfarland Diagnoses Acute on chronic diastolic CHF (congestive heart failure), NYHA class 4 I50.33 Insulin resistance E88.81 Dyspnea R06.01 Dyspnea type: orthopnea Restrictive lung disease secondary to obesity J98.4; E66.9 BARBARA (obstructive sleep apnea) G47.33 Atrial fibrillation I48.91
[2022-01-23] MEDS: potassium chloride ER 20 mEq Tablet 40 MEQ PO (10:35)
[2022-01-23 12:10] LABS: Glucose Point of Care 352 mg/dL (70-110)
[2022-01-23 17:06] LABS: Glucose Point of Care 256 mg/dL (70-110)
[2022-01-23] MEDS: benzonatate 100 mg Capsule PO (18:09)
[2022-01-23 21:34] LABS: Glucose Point of Care 319 mg/dL (70-110)
[2022-01-23] MEDS: insulin glargine 100 units/1 mL 20 UNIT SUBCUT (21:38)
[2022-01-23] MEDS: cefTRIAXone 1,000 MG in sodium chloride 0.9% (plus) 50 ML 100 MG IV (21:38)
[2022-01-24] VITALS (15 sets, daily range): BP systolic 107–141; BP diastolic 63–94; PULSE 86–106; RESP 16–20; TEMP 36.1–36.8; O2SAT 79–99
[2022-01-24] MEDS: bumetanide 0.25 mg/mL SDV 10 mL 2 MG IVP ×3 (01:57→17:31)
[2022-01-24] MEDS: ipratropium-albuterol 3 mL Neb INHALATION ×3 (02:38→20:06)
[2022-01-24 04:43] LABS: Basophils # 0.1 10^3/uL (0.0-0.1); Basophils % 0.8 %; Eosinophils # 0.2 10^3/uL (0.0-0.8); Eosinophils % 2.1 %; Hematocrit 41.4 % (42.0-52.0); Hemoglobin 11.6 g/dL (11.7-16.6); Lymphocytes # 2.2 10^3/uL (0.8-4.8); Lymphocytes % 21.6 %; Mean Corpuscular Hemoglobin 25.2 pg (28.0-34.0); Mean Corpuscular Volume 89.8 fl (80-94); Mean Platelet Volume 9.8 fL (7.4-10.4); Monocytes # 0.6 10^3/uL (0.2-0.9); Monocytes % 6.2 %; Neutrophils # 7.04 10^3/uL (1.8-7.7); Neutrophils % 68.1 %; Nucleated Red Blood Cells % 0 %; Platelet Count 209 10^3/cmm (130-400); Red Blood Count 4.61 10^6/uL (4.1-5.3); White Blood Count 10.3 10^3/uL (4.0-10.0)
[2022-01-24 05:14] LABS: Blood Urea Nitrogen 15 mg/dL (8-23); Calcium 8.8 mg/dL (8.5-10.5); Carbon Dioxide 33 mmol/L (22-29); Chloride 90 mmol/L (98-107); Creatinine Clr Calc Pharmacy 100.4028; Glomerular Filtration Rate 74.3 mL/min (90-130); Glucose 280 mg/dL (65-115); Osmolality Calculated 287 mOsm/kg (285-295); Sodium 133 mmol/L (136-145)
[2022-01-24 05:18] LABS: Anion Gap 13.4 (5-19); Potassium 3.4 mmol/L (3.5-5.1)
[2022-01-24 06:29] LABS: Glucose Point of Care 303 mg/dL (70-110)
--- NOTE | 2022-01-24 08:44 | PC.SOCIAL ---
IMM update IMM updated with patient. Verbalized an understanding. Copy Pg 2 provided. Initialled, dated, timed, and placed in chart.
[2022-01-24] MEDS: metoprolol tartrate 50 mg Tablet PO ×2 (09:55→17:31)
[2022-01-24] MEDS: potassium chloride ER 20 mEq Tablet 40 MEQ PO (09:56)
[2022-01-24] MEDS: benzonatate 100 mg Capsule PO ×2 (09:57→16:04)
[2022-01-24] MEDS: digoxin 250 mcg Tablet PO (09:57)
[2022-01-24] MEDS: pantoprazole DR 40 mg Tablet PO (09:58)
[2022-01-24] MEDS: pregabalin 100 mg Capsule PO ×2 (09:58→17:31)
[2022-01-24] MEDS: insulin lispro 100 unit/1 mL SUBCUT ×4 (09:59→21:29)
--- NOTE | 2022-01-24 10:53 | PM.PN ---
Subjective Subjective: This morning. No acute events overnight. Patient is 5 L negative since admission. He says he is finally starting to feel better however not quite there yet. Lower extremity edema still present however he can breathe a little easier. Still on 2 L nasal cannula. He says that he takes Bumex 2 mg twice daily and around noon he takes metolazone 5 mg daily at home. He was curious why the IV Bumex is working a little better. Vitals/I&O/Wt Last Vital Signs Temp 97 F L 01/24/22 10:23 Pulse 106 H 01/24/22 10:23 Resp 20 H 01/24/22 10:23 BP 122/73 01/24/22 10:23 Pulse Ox 97 01/24/22 10:23 O2 Del Method 01/24/22 10:23 O2 Flow Rate 2 01/24/22 10:23 01/23/22 01/24/22 01/24/22 22:59 06:59 14:59 Intake Total 290 / 1010 520 / 1530 240 / 240 Output Total 1600 / 2500 2300 / 4800 550 / 550 Balance -1310 / -1490 -1780 / -3270 -310 / -310 Physical Exam Narrative: General: No acute distress, AO x3 HEENT: EOMI, on 2 L nasal cannula Chest: Clear to auscultation bilaterally significant improvement since yesterday. CVS: S1-S2 regular, no murmurs, Abdomen: Soft, nontender, no organomegaly, bowel sounds present, obese rounded abdomen Neuro: Nonfocal EXT: Pitting edema bilateral lower extremities, pedal edema present bilateral feet as well. very minimal wrinkling noted by ankles. Probably minor improvement compared to admission. Data : 01/24/22 04:22 01/24/22 04:22 A&P Assessment and plan (1) Acute on chronic diastolic CHF (congestive heart failure), NYHA class 4: Patient with a known past medical history as noted above presenting today with worsening dyspnea over the last several days, increasing lower extremity edema, chest x-ray with bilateral infiltrates which appear to be most consistent with pulmonary edema. Continue Bumex 2 mg IV 3 times daily Hold metolazone at this time. Last echocardiogram from 07/2020 with LVEF of 60 to 65%, diastolic function could not be estimated at the time due to A. fib. EKG shows atrial fibrillation, continue metoprolol 50 twice daily, home dose Continue Pradaxa Denies any current chest pain Leukocytosis noted at 19,000 at admission, today at 10,000. Almost resolved. Procalcitonin negative. COVID-negative Continue empiric ceftriaxone and azithromycin to complete 5 days total. Blood cultures negative to date DuoNeb inhalation every 6 hours. We will hold onto breathing treatments and changed him to as needed. Continue Tessalon Perles for cough. Supplemental O2 to keep saturation 90 to 92% Patient blood sugars are still elevated. Continue on Lantus 20 daily. Placed on high-dose intensity sliding scale. When patient goes home he will go back to his previous home regimen. Normal left ventricular size and systolic function, EF 68 %. ?No regional wall motion abnormalities. (2) Insulin resistance: Patient last saw Dr. DOTSON in October 2021. She prescribed him with Jardiance and Ozempic. Patient is not on this medication at this time. His home insulin is regular insulin double concentrated. Patient normally takes 200 Premeal. Patient wearing a Dexcom sensor. 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 He has severe insulin resistance. continue lantus 20 units nightly (increase from 15 units yesterday). Change to high-dose intensity sliding scale. I added Premeal insulin yesterday however patient's eating times or not consistent and change every day and therefore we will stop that and switch to high-dose intensity and correct in addition to as needed. When patient goes home we will place him back on his previous home regimen. (3) Dyspnea: Shortness of breath is improved however still has orthopnea. Qualifiers: Dyspnea type: orthopnea Qualified Code(s): R06.01 - Orthopnea (4) Restrictive lung disease secondary to obesity: (5) BARBARA (obstructive sleep apnea): CPAP at night (6) Atrial fibrillation: Continue metoprolol and Pradaxa Attestations Medical Necessity Statement*: Will require another day of IV diuresis. Plan to discharge tomorrow as long as he continues to have good urine output. 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
[2022-01-24 11:20] LABS: Glucose Point of Care 417 mg/dL (70-110)
[2022-01-24] MEDS: insulin lispro 100 unit/1 mL 10 UNIT SUBCUT (12:30)
[2022-01-24 17:03] LABS: Glucose Point of Care 215 mg/dL (70-110)
[2022-01-24 21:19] LABS: Glucose Point of Care 352 mg/dL (70-110)
[2022-01-24] MEDS: insulin glargine 100 units/1 mL 26 UNIT SUBCUT (21:29)
[2022-01-24] MEDS: cefTRIAXone 1,000 MG in sodium chloride 0.9% (plus) 50 ML 100 MG IV (22:59)
[2022-01-25] VITALS (8 sets, daily range): BP systolic 97–108; BP diastolic 60–74; PULSE 60–105; RESP 18–20; TEMP 36.3–37.1; O2SAT 93–98
[2022-01-25] MEDS: bumetanide 0.25 mg/mL SDV 10 mL 2 MG IVP (04:10)
[2022-01-25 06:07] LABS: Anion Gap 11.4 (5-19); Blood Urea Nitrogen 15 mg/dL (8-23); Calcium 8.9 mg/dL (8.5-10.5); Carbon Dioxide 38 mmol/L (22-29); Chloride 91 mmol/L (98-107); Glomerular Filtration Rate 83.9 mL/min (90-130); Glucose 252 mg/dL (65-115); Magnesium 1.8 mg/dL (1.7-2.3); Osmolality Calculated 293 mOsm/kg (285-295); Potassium 3.4 mmol/L (3.5-5.1); Sodium 137 mmol/L (136-145)
[2022-01-25] MEDS: insulin lispro 100 unit/1 mL SUBCUT ×4 (06:09→11:55)
[2022-01-25 06:59] LABS: Glucose Point of Care 280 mg/dL (70-110)
[2022-01-25] MEDS: acetaZOLAMIDE 250 mg Tablet PO (08:38)
[2022-01-25] MEDS: digoxin 250 mcg Tablet PO (08:38)
[2022-01-25] MEDS: potassium chloride ER 20 mEq Tablet 40 MEQ PO (08:38)
[2022-01-25] MEDS: pantoprazole DR 40 mg Tablet PO (08:38)
[2022-01-25] MEDS: bumetanide 1 mg Tablet 2 MG PO (08:38)
[2022-01-25] MEDS: metoprolol tartrate 50 mg Tablet PO (08:39)
[2022-01-25] MEDS: pregabalin 100 mg Capsule PO (08:39)
[2022-01-25] MEDS: ipratropium-albuterol 3 mL Neb INHALATION (09:14)
--- NOTE | 2022-01-25 11:11 | PM.DCS ---
Discharge Providers Date of Admission: 01/21/22 00:40 Date of Discharge: January 25, 2022 Attending Provider at Admission: Sarahy Benitez MD Attending Provider at Discharge: Richa Talavera MD Primary Care Provider: Marissa Ruiz Diagnoses at Discharge Discharge Diagnosis (1) Acute on chronic diastolic CHF (congestive heart failure), NYHA class 4: Status: Resolved (2) Insulin resistance: Status: Acute (3) Dyspnea: Status: Resolved Qualifiers: Dyspnea type: orthopnea Qualified Code(s): R06.01 - Orthopnea (4) Restrictive lung disease secondary to obesity: Status: Acute (5) BARBARA (obstructive sleep apnea): Status: Acute (6) Atrial fibrillation: Status: Acute Reason for Visit Reason for Visit: SOB Brief History: Manuel Somers is a 66 year old male?with past medical history of morbid obesity, chronic atrial fibrillation anticoagulated with direct thrombin inhibitor, diabetes, dyslipidemia, hypertension and sleep apnea.? Presenting to the emergency room today with worsening shortness of breath over the past several days.? He is also describing cough over the past 4 to 5 days with increasing greenish colored expectoration.? Has had subjective fever and chills.? He has been using inhalers at home without any significant benefit.? He is also been having increasing lower extremity edema in spite of being on Bumex 2 mg p.o. twice daily. Denies any chest pain palpitations.? Orthopnea present PND present Hospital Course Hospital Course Patient admitted for acute on chronic diastolic congestive heart failure. He was placed on Bumex 2 mg IV 3 times daily details on was held. He was diuresed. Patient 6 L negative at discharge. He was finally able to lay flatter in bed and not get short of breath. On day of discharge patient laying in bed without a pillow on 2 L nasal cannula and appears comfortable. He sat up on his own and said he felt a lot better. He also had leukocytosis at admission at 19,000. It came down to 10,000. Procalcitonin was negative. He was placed on empiric ceftriaxone and azithromycin. Patient placed on Levaquin at discharge to complete a total 5-day course. He was also given Tessalon Perles for cough. Patient was instructed to restart his oral Bumex at home 2 mg twice daily. And to start metolazone the day after. He was asked to follow-up with cardiology at discharge. Home oxygen was also set up for him. Hospital stay his blood sugars were difficult to control with standard regimen of Lantus, Premeal insulin sliding scale. He was advised to go back on his home regimen at discharge. Patient for Dexcom sensor and was very well versed in controlling his blood sugars. Encouraged to follow-up with endocrinology after hospital discharge. Nursing staff was not comfortable using patient's home insulin. All questions answered. Patient discharged home in stable condition. Physical Exam Narrative: General: No acute distress, AO x3 HEENT: EOMI, on 2 L nasal cannula Chest: Clear to auscultation bilaterally, no wheezes no rhonchi no crackles. CVS: S1-S2 regular, no murmurs, Abdomen: Soft, nontender, no organomegaly, bowel sounds present, obese rounded abdomen Neuro: Nonfocal EXT: Pitting edema bilateral lower extremities, pedal edema present bilateral feet as well. very minimal wrinkling noted by ankles. Probably minor improvement compared to admission. Discharge Data Studies Completed and Pending Completed Studies During Hospitalization Category Date Time Status XR chest 1V portable [id number] Stat Exams 01/20/22 21:10 Completed CV. echo wo/w contrast [id number] Routine Ultrasound 01/22/22 13:44 Completed Pending at discharge Category Date Time Status Blood Culture Stat Lab 01/20/22 22:30 Results Radiology Impressions Chest X-Ray 01/20/22 21:10 IMPRESSION: Cardiomegaly and mild pulmonary vascular congestion with minimal ground-glass airspace opacities suggestive of alveolar edema. Laboratory Results WBC 10.3 10^3/uL (4.0-10.0) H 01/24/22 04:22 RBC 4.61 10^6/uL (4.1-5.3) 01/24/22 04:22 Hgb 11.6 g/dL (11.7-16.6) L 01/24/22 04:22 Hct 41.4 % (42.0-52.0) L 01/24/22 04:22 MCV 89.8 fl (80-94) D 01/24/22 04:22 MCH 25.2 pg (28.0-34.0) L 01/24/22 04:22 MCHC 28.0 g/dL (30.0-36.0) L D 01/24/22 04:22 RDW 16.0 % (12.1-15.1) H 01/24/22 04:22 Plt Count 209 10^3/cmm (130-400) 01/24/22 04:22 MPV 9.8 fL (7.4-10.4) 01/24/22 04: Neut % (Auto) 68.1 % 01/24/22 04: Lymph % (Auto) 21.6 % 01/24/22 04:22 Dickens % (Auto) 6.2 % 01/24/22 04:22 Eos % (Auto) 2.1 % 01/24/22 04:22 Baso % (Auto) 0.8 % 01/24/22 04: Neut # (Auto) 7.04 10^3/uL (1.8-7.7) 01/24/22 04: Lymph # (Auto) 2.2 10^3/uL (0.8-4.8) 01/24/22 04: Dickens # (Auto) 0.6 10^3/uL (0.2-0.9) 01/24/22 04:22 Eos # (Auto) 0.2 10^3/uL (0.0-0.8) 01/24/22 04: Baso # (Auto) 0.1 10^3/uL (0.0-0.1) 01/24/22 04:22 Nucleated RBC % (auto) 0 % 01/24/22 04: Nucleated RBCs # 0.0 /100WBC 01/24/22 04:22 Specimen Type Arterial 01/20/22 21:17 Sample Site Radial, left 01/20/22 21:17 ABG pH 7.52 (7.35-7.45) H 01/20/22 21:17 ABG pCO2 43.5 mmHg (35-45) 01/20/22 21:17 ABG pO2 102.0 mmHg (80.0-100.0) H 01/20/22 21:17 ABG HCO3 35.1 mmol/L (22-26) H 01/20/22 21:17 ABG Base Excess 10.9 mmol/L (-2.0-2.0) H 01/20/22 21:17 Klever Test Pos 01/20/22 21:17 Hematocrit 38.1 % (42-52) L 01/20/22 21:17 Hgb O2 Saturation 96.3 % (95-100) 01/20/22 21:17 Carboxyhemoglobin 1.1 %THgb (0.4-20.1) 01/20/22 21:17 Methemoglobin 0.4 % (0.4-1.5) 01/20/22 21:17 Total Hemoglobin 12.4 g/dL (14-18) L 01/20/22 21:17 O2 Delivery Device Nc 01/20/22 21:17 O2 Liters/Min 4.0 % 01/20/22 21:17 Park Interpretive Ranger ID [place] 01/20/22 21:17 Sodium 137 mmol/L (136-145) 01/25/22 05:28 Potassium 3.4 mmol/L (3.5-5.1) L 01/25/22 05:28 Chloride 91 mmol/L (98-107) L 01/25/22 05:28 Carbon Dioxide 38 mmol/L (22-29) H 01/25/22 05:28 Anion Gap 11.4 (5-19) 01/25/22 05:28 BUN 15 mg/dL (8-23) 01/25/22 05:28 Creatinine 0.9 mg/dL (0.7-1.2) 01/25/22 05:28 GFR Calculation 83.9 mL/min (90-130) L 01/25/22 05:28 Glucose 252 mg/dL (65-115) H 01/25/22 05:28 POC Glucose 280 mg/dL (70-110) H 01/25/22 06:48 Estimat Average Glucose 177 01/21/22 19:20 Hemoglobin A1c 7.8 % (4.0-6.0) H 01/21/22 19:20 Calculated Osmolality 293 mOsm/kg (285-295) 01/25/22 05:28 Lactic Acid 2.4 mmol/L (0.5-2.2) H 01/20/22 20:50 Lactic Acid (Sepsis) 2.5 mmol/L (0.5-2.2) H 01/21/22 01:45 Calcium 8.9 mg/dL (8.5-10.5) 01/25/22 05:28 Magnesium 1.8 mg/dL (1.7-2.3) 01/25/22 05:28 Total Bilirubin 0.4 mg/dL (0.15-1.2) 01/22/22 03:55 AST 18 U/L (0-40) 01/22/22 03:55 ALT 15 U/L (0-41) 01/22/22 03:55 Alkaline Phosphatase 79 U/L (40-130) 01/22/22 03:55 NT-Pro-B Natriuret Pep 613 pg/mL (0-125) H 01/20/22 20:50 Total Protein 7.6 g/dL (6.6-8.7) 01/22/22 03:55 Albumin 2.9 g/dL (3.5-5.2) L 01/22/22 03:55 Globulin 4.7 g/dL (1.3-4.6) H 01/22/22 03:55 Procalcitonin 0.19 ng/mL (0-0.5) 01/21/22 08:21 Digoxin 1.1 ng/mL (0.6-1.2) 01/20/22 20:50 SARS-CoV-2 Ag (Rapid) Negative (Negative) 01/20/22 21:20 Vitals Last Vital Signs Temp 97.5 F L 01/25/22 11:01 Pulse 66 01/25/22 11:01 Resp 18 01/25/22 11:01 BP 97/60 01/25/22 11:01 Pulse Ox 97 01/25/22 11:01 O2 Del Method 01/25/22 11:01 O2 Flow Rate 2 01/25/22 09:15 Discharge Plan Discharge Patient Disposition: Home Condition: Stable Prescriptions: New benzonatate 100 mg Capsule 100 mg PO TID PRN (Reason: Cough) 7 Days Qty: 14 0RF levofloxacin 750 mg tablet 750 mg PO DAILY 3 Days Qty: 3 0RF Continued Pradaxa 150 mg capsule 150 mg PO BID pravastatin 40 mg tablet 40 mg PO DAILY Humulin R U-500 (Conc) Insulin 500 unit/mL solution See Rx Instructions .ROUTE .COMPLEX Label Comments: pt states he takes 200 units tid - qid Rx Instructions: per sliding scale TID magnesium oxide 400 mg magnesium tablet 800 mg PO BID metoprolol tartrate 100 mg tablet 50 mg PO BID Rx Instructions: take 1/2 tab twice daily pregabalin 100 mg capsule 100 mg PO BID MDD 2 Qty: 60 1RF digoxin 250 mcg (0.25 mg) tablet 250 mcg PO DAILY (DME) Dexcom G6 Reimbursement Spec Misc See Rx Instructions .Route Qty: 1 3RF Rx Instructions: Check BS 4 times a day. potassium chloride 20 mEq tablet extended release 20 meq PO BID Qty: 60 0RF (DME) Diabetic shoes with 3 inserts See Rx Instructions .Route .MEDSUPPLY Qty: 1 0RF Rx Instructions: As directed J P & O (DME) Dexcom G6 Transmitter Device See Rx Instructions .Route Qty: 1 3RF Rx Instructions: As directed (DME) Dexcom G6 Sensor Device See Rx Instructions .ROUTE .COMPLEX Qty: 3 3RF Dose Instruction: USE 1 SENSOR UNDER THE SKIN DIRECTED TO MONITOR GLUCOSE READINGS Rx Instructions: USE 1 SENSOR UNDER THE SKIN DIRECTED TO MONITOR GLUCOSE READINGS metolazone 5 mg Tablet 5 mg PO DAILY Qty: 15 0RF Rx Instructions: pt takes medication at noon. Changed bumetanide 2 mg tablet 2 mg PO BID Qty: 30 3RF Discharge Orders: Discharge Order (Routine); Ordered 01/25/22 Ordered By: Richa Talavera Other Ambulatory Orders: DME: Oxygen (Order) Location: None Selected Ordered By: Richa Talavera Referrals: Samira Rossi FNP [Nurse Practitioner] - 02/01/22 2:15 pm Marissa Ruiz PA [Primary Care Provider] - 01/31/22 9:45 am Discharge Diet: Cardiac, Diabetic and Low Salt Discharge Activity: Increase activity as tolerated and Oxygen as instructed Patient Instructions: Benzonatate (By mouth), Levofloxacin (By mouth), Using Oxygen at Home (GEN), Community Acquired Pneumonia (GEN), Opioid Safety Activity Restrictions/Additional Instructions: Please return to ER if your symptoms worsen or new symptoms develop. Ensure you complete your antibiotics course. Please watch your salt intake and fluid intake. Take no more than 1500 cc fluids a day. If you notice > 3Lb weight gain in 24 hour period or > 5 lb weight gain in 3 days, please return to ER. Please wait to start your Bumex tomorrow night 01-26-22. Start Metolazone tomorrow 01-26-22. Discharge Attestations Time Spent in Discharge Care*: other Quality Metrics Clinical Quality Measures [ No reported AMI, CVA or VTE this stay] Coding Level of Care Code Acute Chg FW DC note Diagnoses Acute on chronic diastolic CHF (congestive heart failure), NYHA class 4 I50.33 Insulin resistance E88.81 Dyspnea R06.01 Dyspnea type: orthopnea Restrictive lung disease secondary to obesity J98.4; E66.9 BARBARA (obstructive sleep apnea) G47.33 Atrial fibrillation I48.91
[2022-01-25 11:34] LABS: Glucose Point of Care 347 mg/dL (70-110)
[2022-01-25] MEDS: sodium chloride 0.9% 250 ML IV (12:04)
== END 2022-01-25 12:54 | disposition home or self-care (01) | DRG 291 ==
LOC: ER 22:35 → MEDSURG 01-21 00:40
PROVIDERS: Internal Medicine; Admitting Provider Student in an Organized Health Care Education/Training Program; Emergency Provider Emergency Medicine; PCP Physician Assistant; Visit Provider Internal Medicine
DX: I11.0 Hypertensive heart disease with heart failure (principal); I50.33 Acute on chronic diastolic (congestive) heart failure; Z68.43 Body mass index [BMI] 50.0-59.9, adult; I48.20 Chronic atrial fibrillation, unspecified; E66.01 Morbid (severe) obesity due to excess calories; E11.42 Type 2 diabetes mellitus with diabetic polyneuropathy; E78.5 Hyperlipidemia, unspecified; G47.33 Obstructive sleep apnea (adult) (pediatric); G89.29 Other chronic pain; M54.9 Dorsalgia, unspecified; F32.A Depression, unspecified; E88.81 Metabolic syndrome and other insulin resistance; J98.4 Other disorders of lung; Z79.01 Long term (current) use of anticoagulants; Z79.4 Long term (current) use of insulin
CPT/HCPCS: 36415; 36416; 36600; 71045; 80048; 80053; 80162; 82805; 82962; 83036; 83605; 83735; 83880; 84145; 85025; 87040; 87426; 93005; 94640; 94760; 96365; 96367; 96372; 96375; 99285; C8929; J0456; J0696; J1815; J1940; J3490; J7050; Q0144; Q9956

== ENCOUNTER → 2022-02-01 09:00 | Outpatient (BNVA) | payer OTHER, SELFPAY | PROVIDERS: PCP Physician Assistant; Visit Provider Nurse Practitioner Family | DX: I50.30 Unspecified diastolic (congestive) heart failure (principal); E78.5 Hyperlipidemia, unspecified | CPT/HCPCS: 80048; 83880; 99213; 99214 ==

== ENCOUNTER → 2022-02-13 07:57 | Outpatient (BNVA) | payer OTHER, SELFPAY | PROVIDERS: PCP Physician Assistant; Visit Provider Podiatrist Foot & Ankle Surgery | DX: E11.8 Type 2 diabetes mellitus with unspecified complications (principal); E11.42 Type 2 diabetes mellitus with diabetic polyneuropathy; L60.3 Nail dystrophy; I73.9 Peripheral vascular disease, unspecified; L84 Corns and callosities; M21.41 Flat foot [pes planus] (acquired), right foot; M21.42 Flat foot [pes planus] (acquired), left foot; Z79.4 Long term (current) use of insulin | CPT/HCPCS: 11055; 11721 ==

== ENCOUNTER → 2022-03-01 08:38 | Outpatient (BNVA) | payer OTHER, SELFPAY | PROVIDERS: PCP Physician Assistant; Referring Provider Family Medicine; Visit Provider Orthopaedic Surgery | DX: M43.17 Spondylolisthesis, lumbosacral region (principal) | CPT/HCPCS: 72110; 99204 ==

== ENCOUNTER → 2022-03-02 10:08 | Outpatient (BNVA) | payer OTHER, SELFPAY | PROVIDERS: PCP Physician Assistant; Visit Provider Nurse Practitioner Family | DX: I50.30 Unspecified diastolic (congestive) heart failure (principal); I10 Essential (primary) hypertension | CPT/HCPCS: 36415; 80048; 83880; 99214 ==

== ENCOUNTER 2022-03-05 08:35 | Outpatient (CLI) | payer OTHER, SELFPAY ==
[2022-03-05 09:21] LABS: Anion Gap 14.8 (5-19); Blood Urea Nitrogen 33 mg/dL (8-23); Calcium 9.4 mg/dL (8.5-10.5); Carbon Dioxide 35 mmol/L (22-29); Chloride 87 mmol/L (98-107); Glomerular Filtration Rate 60.2 mL/min (90-130); Glucose 191 mg/dL (65-115); NT Pro B Type Natriuretic Pept 404 pg/mL (0-125); Osmolality Calculated 290 mOsm/kg (285-295); Sodium 134 mmol/L (136-145)
[2022-03-05 09:44] LABS: Potassium 2.8 mmol/L (3.5-5.1)
== END 2022-03-05 08:36 | disposition home or self-care (01) ==
LOC: LAB 08:37
PROVIDERS: PCP Physician Assistant; Visit Provider Nurse Practitioner Family
DX: I11.0 Hypertensive heart disease with heart failure (principal); I50.30 Unspecified diastolic (congestive) heart failure
CPT/HCPCS: 80048; 83880

== ENCOUNTER → 2022-03-12 08:03 | Outpatient (BNVA) | payer OTHER, SELFPAY | PROVIDERS: PCP Physician Assistant; Referring Provider Family Medicine; Visit Provider Specialist | DX: M17.0 Bilateral primary osteoarthritis of knee (principal); E66.01 Morbid (severe) obesity due to excess calories; E11.65 Type 2 diabetes mellitus with hyperglycemia; Z79.4 Long term (current) use of insulin; Z68.43 Body mass index [BMI] 50.0-59.9, adult | CPT/HCPCS: 73560; 73565; 99204 ==

== ENCOUNTER → 2022-05-10 08:48 | Outpatient (BNVA) | payer OTHER, SELFPAY | PROVIDERS: PCP Physician Assistant; Visit Provider Podiatrist Foot & Ankle Surgery | DX: E11.42 Type 2 diabetes mellitus with diabetic polyneuropathy (principal); E11.8 Type 2 diabetes mellitus with unspecified complications; L60.3 Nail dystrophy; I73.9 Peripheral vascular disease, unspecified; L84 Corns and callosities; M21.41 Flat foot [pes planus] (acquired), right foot; M21.42 Flat foot [pes planus] (acquired), left foot; Z79.4 Long term (current) use of insulin | CPT/HCPCS: 11056; 11721 ==

== ENCOUNTER 2022-05-29 11:31 | Observation (INO) | payer OTHER, SELFPAY ==
[2022-05-29] VITALS (20 sets, daily range): BP systolic 92–155; BP diastolic 56–91; PULSE 63–176; RESP 9–22; TEMP 36.4–36.7; O2SAT 90–97; BMI 61.0
--- NOTE | 2022-05-29 11:45 | ECG_ITS ---
[facility] Test Date: 2022-05-29 Pat Name: Manuel Somers Department: Room: Gender: Male Admissions Officer: : 1955 Requested By: Sathish Stacy Order Number: [id number] Makayla MD: Bridgette Staton M.D. Measurements Intervals Newcomb Rate: 77 P: 0 NH: 0 QRS: -35 QRSD: 101 T: 42 QT: 376 QTc: 426 Interpretive Statements ATRIAL FIBRILLATION LEFT AXIS DEVIATION [QRS AXIS < -30] INCOMPLETE RIGHT BUNDLE BRANCH BLOCK [90+ ms QRS DURATION, TERMINAL R IN V1/V2, 40+ ms S IN I/aVL/V4/V5/V6] Compared to ECG 01/20/2022 20:43:54 T-wave abnormality no longer present Electronically Signed On 05-30-2022 14:08:19 HOME HEALTH ATTENDANT by Bridgette Staton M.D. [email or web address]
--- NOTE | 2022-05-29 12:04 | W.ED.ARRPALP ---
HPI - Arrhythmia/Palpitations General: Chief Complaint: Arrhythmia/Palpitations Stated Complaint: left arm numb,feet swelling Time Seen by Provider: 05/29/22 11:58 History of Present Illness: 66-year-old male with known heart failure and atrial fibrillation and with concerns of worsening edema and shortness of breath. The patient reports that he has significant exercise intolerance and can only walk a couple of steps without getting short of breath and that he has gained some 20 pounds in the past 1 to 2 weeks. He has been compliant with his diuretics. He is on both Bumex as well as metolazone. The patient has had issues like this before but not quite to this severity. The patient reports that he will have frequent runs where his heart gets fairly fast. He was 89 initially when he arrived to the department. Associated symptoms: Reports nausea; Deny vomiting Review of Systems General: Reports: 10 or more systems reviewed and unremarkable except in HPI and below Card: Reports: palpitations, irregular heart rhythm, edema, swelling of feet/ankles, dyspnea on exertion and orthopnea Resp: Reports: dyspnea and chest congestion; Denies: productive cough, non-productive cough, wheezing, pain on inspiration, change in phlegm color or hemoptysis GI: Reports: nausea; Denies: abdominal pain or vomiting Skin/Breast: Reports: erythema; Denies: rash PFSH ED PFSH: Medical History Anticoagulant long-term use Atrial fibrillation Chronic back pain Depression Diabetes mellitus type 2, uncontrolled Diabetic neuropathy Dyslipidemia High risk medication use Immunization counseling Inflammatory arthritis Obesity BARBARA (obstructive sleep apnea) Osteoarthritis Positive sm/ELECTROMECHANICAL ASSEMBLER antibody + ELECTROMECHANICAL ASSEMBLER antibody, negative Quinonez, negative DS DNA ab Surgical History History of arthroscopic knee surgery bilateral knees Status post ablation of atrial fibrillation Family History Father Family history of premature coronary artery disease Myocardial Infarction Mother Cancer Other CAD (coronary artery disease) Diabetes Hyperlipidemia Hypertension Rheumatoid arthritis Denies family history of Lupus Chronic kidney disease (CKD) Lung disease Stroke Social History Smoking and tobacco status: never smoked Second hand smoke exposure: Yes Smoking risk assessment/counseling performed?: Yes Alcohol intake: former Lives independently: Yes Household members: spouse Marital status: service: Yes Current occupational status: retired and disabled Pets and animals: No Current gender identity: Male Physical Exam Const: COMMON NORMALS: no acute distress, patient oriented x3, alert and well nourished HENMT: COMMON NORMALS: normocephalic HEAD & SCALP: normocephalic Eye: COMMON NORMALS: Equal, round and reactive pupils present, EOMs intact bilaterally and conjunctivae normal CONJUNCTIVA: Yes conjunctivae normal PUPIL: Yes Equal, round and reactive pupils present Chest: COMMONS NORMALS: normal inspection of the chest and normal palpation of entire chest wall Resp: COMMON NORMALS: normal respiratory effort, No retractions, No use of accessory muscles, clear to auscultation bilaterally and percussion normal AUSCULTATION: clear to auscultation bilaterally PERCUSSION: percussion normal Cardio: OTHER: Irregularly irregular with tachycardic rate GI: COMMON NORMALS: Normal to inspection, nondistended, normoactive bowel sounds present, Soft to palpation, non-tender, No hepatosplenomegaly present, no masses and no bruits PALPATION: Yes Soft to palpation and Yes No hepatosplenomegaly present Extremity: OTHER: 3-4+ pitting edema in lower extremities Neuro: COMMON NORMALS: patient oriented x3 SENSORIUM/ORIENTATION: Yes alert Skin: COMMON NORMALS: no rashes or lesions noted, turgor normal and no jaundice GENERAL SKIN EXAM: no rashes or lesions noted and turgor normal Course Vital Signs: Vital signs: Vital Signs Temperature 97.5 F L 05/29/22 11:35 Pulse Rate 81 05/29/22 13:45 Respiratory Rate 22 H 05/29/22 14:30 Blood Pressure 119/73 05/29/22 11:35 Pulse Oximetry 94 05/29/22 14:30 Oxygen Delivery Me thod 05/29/22 11:35 MDM - Arrhythmia/Palpitations Medical Decision Making 66-year-old male in with concerns of shortness of breath and markedly increased weight gain. I am worried that he is in decompensated heart failure. He has some fairly impressive lower extremity edema. He has chronic respiratory failure we will get a chest x-ray, BNP give him some Lasix and check routine labs including electrolytes. Patient is recommended to come in for diuresis. I am worried that he is can get significantly worse and will not be able to monitor his electrolytes and renal function properly as outpatient. The patient is agreeable to doing this I called and talked with the hospitalist who is agreeable and have placed some routine orders. Differential Diagnosis Likely palpitations, anxiety, sinus tachycardia, artial fibrillation, artial flutter, ventricular premature beats, supraventricular tachycardia and ventricular tachycardia Lab Data 05/29/22 12:55 05/29/22 12:55 Radiology Impressions Chest X-Ray 05/29/22 12:26 IMPRESSION: No acute findings. Laboratory Results WBC 12.7 10^3/uL (4.0-10.0) H 05/29/22 12:55 RBC 4.67 10^6/uL (4.1-5.3) 05/29/22 12:55 Hgb 12.8 g/dL (11.7-16.6) 05/29/22 12:55 Hct 41.0 % (42.0-52.0) L 05/29/22 12:55 MCV 87.8 fl (80-94) 05/29/22 12:55 MCH 27.4 pg (28.0-34.0) L 05/29/22 12:55 MCHC 31.2 g/dL (30.0-36.0) 05/29/22 12:55 RDW 17.4 % (12.1-15.1) H 05/29/22 12:55 Plt Count 225 10^3/cmm (130-400) 05/29/22 12:55 MPV 9.6 fL (7.4-10.4) 05/29/22 12:55 Neut % (Auto) 73.9 % 05/29/22 12:55 Lymph % (Auto) 15.6 % 05/29/22 12:55 Holmes % (Auto) 8.1 % 05/29/22 12:55 Eos % (Auto) 1.2 % 05/29/22 12:55 Baso % (Auto) 0.6 % 05/29/22 12:55 Neut # (Auto) 9.35 10^3/uL (1.8-7.7) H 05/29/22 12:55 Lymph # (Auto) 2.0 10^3/uL (0.8-4.8) 05/29/22 12:55 Holmes # (Auto) 1.0 10^3/uL (0.2-0.9) H 05/29/22 12:55 Eos # (Auto) 0.2 10^3/uL (0.0-0.8) 05/29/22 12:55 Baso # (Auto) 0.1 10^3/uL (0.0-0.1) 05/29/22 12:55 Nucleated RBC % (auto) 0 % 05/29/22 12:55 Nucleated RBCs # 0.0 /100WBC 05/29/22 12:55 Sodium 138 mmol/L (136-145) 05/29/22 12:55 Potassium 2.8 mmol/L (3.5-5.1) L* 05/29/22 12:55 Chloride 88 mmol/L (98-107) L 05/29/22 12:55 Carbon Dioxide 37 mmol/L (22-29) H 05/29/22 12:55 Anion Gap 15.8 (5-19) 05/29/22 12:55 BUN 32 mg/dL (8-23) H 05/29/22 12:55 Creatinine 1.4 mg/dL (0.7-1.2) H 05/29/22 12:55 GFR Calculation 50.4 mL/min (90-130) L 05/29/22 12:55 Glucose 146 mg/dL (65-115) H 05/29/22 12:55 Calculated Osmolality 296 mOsm/kg (285-295) H 05/29/22 12:55 Calcium 10.4 mg/dL (8.5-10.5) 05/29/22 12:55 Magnesium 2.1 mg/dL (1.7-2.3) 05/29/22 12:55 Total Bilirubin 0.6 mg/dL (0.15-1.2) 05/29/22 12:55 AST 19 U/L (0-40) 05/29/22 12:55 ALT 14 U/L (0-41) 05/29/22 12:55 Alkaline Phosphatase 62 U/L (40-130) 05/29/22 12:55 Troponin T Baseline 41 ng/L (0-15) H 05/29/22 12:55 NT-Pro-B Natriuret Pep 286 pg/mL (0-125) H 05/29/22 12:55 Total Protein 7.9 g/dL (6.6-8.7) 05/29/22 12:55 Albumin 3.7 g/dL (3.5-5.2) 05/29/22 12:55 Globulin 4.2 g/dL (1.3-4.6) 05/29/22 12:55 Discharge Plan Discharge Patient Disposition: Admitted As Inpatient Clinical Impression: Atrial fibrillation Qualifiers: Atrial fibrillation type: permanent Qualified Code(s): I48.21 - Permanent atrial fibrillation Diastolic CHF Qualifiers: Heart failure chronicity: acute on chronic Qualified Code(s): I50.33 - Acute on chronic diastolic (congestive) heart failure Condition: Stable Discharge Diet: Low Salt Coding Level of Care Code ED Risk Compliance Manager for Edwin Mcfarland
--- NOTE | 2022-05-29 12:26 | XRR_ITS ---
PROCEDURE INFORMATION: Exam: XR Chest Exam date and time: 05/29/2022 12:39 PM Age: 66 years old Clinical indication: Cardiovascular condition or disease; Congestive heart failure (chf); Cause unknown; Type unknown; Patient HX: Chf SOB, left arm numbness, feet swelling TECHNIQUE: Imaging protocol: Radiologic exam of the chest. Views: 1 view. COMPARISON: CR (CHEST, ) 01/20/2022 9:25 PM FINDINGS: Lungs: Unremarkable. No consolidation. Pleural spaces: Unremarkable. No pleural effusion. No pneumothorax. Heart/Mediastinum: Unremarkable. No cardiomegaly. Bones/joints: Unremarkable. XR/XR chest 1V portable [id number] IMPRESSION: No acute findings.
[2022-05-29 13:05] LABS: Basophils # 0.1 10^3/uL (0.0-0.1); Basophils % 0.6 %; Eosinophils # 0.2 10^3/uL (0.0-0.8); Eosinophils % 1.2 %; Hemoglobin 12.8 g/dL (11.7-16.6); Lymphocytes % 15.6 %; Mean Corpuscular HGB Conc 31.2 g/dL (30.0-36.0); Mean Corpuscular Hemoglobin 27.4 pg (28.0-34.0); Mean Corpuscular Volume 87.8 fl (80-94); Mean Platelet Volume 9.6 fL (7.4-10.4); Monocytes % 8.1 %; Neutrophils # 9.35 10^3/uL (1.8-7.7); Neutrophils % 73.9 %; Nucleated Red Blood Cells % 0 %; Platelet Count 225 10^3/cmm (130-400); Red Blood Count 4.67 10^6/uL (4.1-5.3); Red Cell Distribution Width 17.4 % (12.1-15.1); White Blood Count 12.7 10^3/uL (4.0-10.0)
[2022-05-29] MEDS: FUROsemide 10 mg/mL SDV 10mL 80 MG IVP (13:13)
--- NOTE | 2022-05-29 13:19 | ECG_ITS ---
[facility] Test Date: 2022-05-29 Pat Name: Manuel Somers Department: Room: Gender: Male Asl Interpreter: : 1955 Requested By: Bebeto Torres Order Number: [id number] Makayla MD: Bridgette Staton M.D. Measurements Intervals [place] Rate: 73 P: 0 WA: 0 QRS: -36 QRSD: 111 T: 28 QT: 371 QTc: 411 Interpretive Statements ATRIAL FIBRILLATION LEFT AXIS DEVIATION [QRS AXIS < -30] LOW QRS VOLTAGE IN PRECORDIAL LEADS [QRS DEFLECTION < 1.0 mV IN CHEST LEADS] INCOMPLETE RIGHT BUNDLE BRANCH BLOCK [90+ ms QRS DURATION, TERMINAL R IN V1/V2, 40+ ms S IN I/aVL/V4/V5/V6] POSSIBLE ANTERIOR MYOCARDIAL INFARCTION , PROBABLY OLD [30 ms Q WAVE IN V3/V4, OR R < 0.2 mV IN V4] Compared to ECG 05/29/2022 11:45:11 Low QRS voltage now present Myocardial infarct finding now present Electronically Signed On 05-30-2022 14:09:33 [employer]PER[employer]OR [employer] by Bridgette Staton M.D. [id number]
[2022-05-29 13:30] LABS: Troponin(5th) Baseline 41 ng/L (0-15)
[2022-05-29 13:39] LABS: Alanine Aminotransferase 14 U/L (0-41); Albumin Level 3.7 g/dL (3.5-5.2); Alkaline Phosphatase 62 U/L (40-130); Anion Gap 15.8 (5-19); Aspartate Amino Transferase 19 U/L (0-40); Blood Urea Nitrogen 32 mg/dL (8-23); Calcium 10.4 mg/dL (8.5-10.5); Carbon Dioxide 37 mmol/L (22-29); Chloride 88 mmol/L (98-107); Globulin 4.2 g/dL (1.3-4.6); Glomerular Filtration Rate 50.4 mL/min (90-130); Glucose 146 mg/dL (65-115); NT Pro B Type Natriuretic Pept 286 pg/mL (0-125); Osmolality Calculated 296 mOsm/kg (285-295); Sodium 138 mmol/L (136-145); Total Bilirubin 0.6 mg/dL (0.15-1.2); Total Protein 7.9 g/dL (6.6-8.7)
[2022-05-29 13:42] LABS: Potassium 2.8 mmol/L (3.5-5.1)
[2022-05-29] MEDS: potassium chloride ER 20 mEq Tablet PO ×2 (14:05→16:28)
[2022-05-29] MEDS: magnesium sulfate premix 2 GM/50 ML PIGGYBACK IV (14:05)
[2022-05-29] MEDS: potassium chloride premix 100 ML 25 MEQ IV (14:06)
[2022-05-29 14:21] LABS: Magnesium 2.1 mg/dL (1.7-2.3)
[2022-05-29] MEDS: lidocaine 1% INJ 10 mL (per mL) IV (14:51)
--- NOTE | 2022-05-29 17:34 | P.HP_ITS ---
Providers/Chief Complaint Admitting Physician: Josemanuel Roca MD Primary Care Provider: Marissa Ruiz Chief Complaint: left arm numb,feet swelling History of Present Illness Manuel Somers is a 66 year old male with past medical history of morbid obesity, chronic atrial fibrillation anticoagulated with direct thrombin inhibitor, diabetes, dyslipidemia, hypertension and sleep apnea today with chief complaint of worsening of weight gain and shortness of breath along PND. In the ER he was diagnosed with diastolic CHF exacerbation, he has been given diuretics after potassium replenishment. He cannot tolerate IV potassium. Patient is stating that this is high taking metolazone and diuretics 3 times a day which he has increased Bumex dose to 5 mg which she divides into milligrams twice a day and 1 mg as needed in the daytime he has a metolazone with it and takes potassium twice a day. Despite this regimen he has gained 20 pounds in last 1 week he has not noticed any chest pain, fever he does not smoke or drink alcohol. In the ER he has been diagnosed CHF exacerbation Acute kidney injury related to CHF No abnormal transaminases No active chest pain In the ER he received metoprolol and diuretics along potassium EKG showing A-fib without significant RVR Review of Systems Const: Denies: fever(s) Eyes: Denies: change in vision ENMT: Denies: throat pain Card: Reports: irregular heart rhythm and swelling of feet/ankles Resp: Denies: dyspnea GI: Denies: abdominal pain : Denies: flank pain Musc: Denies: neck pain Skin/Breast: Denies: rash Neuro: Denies: headache(s) Psych: Reports: anxiety Endo: Denies: polyuria Inderjit/Lymph: Denies: easy bruising All/Imm: Denies: urticaria Medications/Allergies Home Medications Medication Instructions Recorded Confirmed Last Taken Type dabigatran etexilate 150 mg 150 mg PO BID 03/26/19 05/29/22 05/29/22 History capsule (Pradaxa) pravastatin 40 mg tablet 40 mg PO DAILY 03/26/19 05/29/22 05/28/22 History pregabalin 100 mg capsule 100 mg PO BID #60 caps 04/02/19 05/29/22 05/29/22 Rx digoxin 250 mcg (0.25 mg) tablet 250 mcg PO DAILY 12/25/19 05/29/22 05/29/22 History insulin regular hum U-500 conc 500 See Rx Instructions .Route .COMPLEX 12/25/19 05/29/22 05/29/22 History unit/mL subcutaneous soln (Humulin R U-500 (Concentrated) Insulin) magnesium oxide 800 mg PO BID 12/25/19 05/29/22 05/29/22 History blood-glucose meter,continuous #1 ea 01/09/21 05/29/22 Unknown Rx (Dexcom G6 Manager [employer]) metoprolol tartrate 100 mg tablet 50 mg PO BID 03/10/21 05/29/22 05/29/22 History Diabetic shoes with 3 inserts #1 ea 04/25/21 05/29/22 Unknown Rx blood-glucose transmitter (Dexcom #1 ea 10/23/21 05/29/22 Unknown Rx G6 Transmitter device) metolazone 5 mg tablet 5 mg PO DAILY #15 tabs 01/25/22 05/29/22 05/29/22 Rx blood-glucose sensor (Dexcom G6 #6 ea 04/26/22 05/29/22 Unknown Rx Sensor device) bumetanide 2 mg tablet 4 mg PO BID 05/29/22 05/29/22 05/29/22 History potassium chloride 20 mEq See Rx Instructions .Route .COMPLEX 05/29/22 05/29/22 05/29/22 History tablet,extended release Allergies Allergy/AdvReac Type Severity Reaction Status Date / Time methotrexate Allergy Unknown Unknown Verified 05/29/22 15:41 leflunomide AdvReac Intermediate rash Verified 05/10/22 08:55 PFSH Acute PFSH: Medical History Anticoagulant long-term use Atrial fibrillation Chronic back pain Depression Diabetes mellitus type 2, uncontrolled Diabetic neuropathy Dyslipidemia High risk medication use Immunization counseling Inflammatory arthritis Obesity BARBARA (obstructive sleep apnea) Osteoarthritis Positive sm/CARTOGRAPHIC ENGINEER antibody + CARTOGRAPHIC ENGINEER antibody, negative Quinonez, negative DS DNA ab Surgical History History of arthroscopic knee surgery bilateral knees Status post ablation of atrial fibrillation Family History Father Family history of premature coronary artery disease Myocardial Infarction Mother Cancer Other CAD (coronary artery disease) Diabetes Hyperlipidemia Hypertension Rheumatoid arthritis Denies family history of Lupus Chronic kidney disease (CKD) Lung disease Stroke Social History Smoking and tobacco status: never smoked Second hand smoke exposure: Yes Smoking risk assessment/counseling performed?: Yes Alcohol intake: former Lives independently: Yes Household members: spouse Marital status: service: Yes Current occupational status: retired and disabled Pets and animals: No Current gender identity: Male Vitals/I&O/Wt Last Vital Signs Temp 97.5 F L 05/29/22 11:35 Pulse 90 05/29/22 16:30 Resp 16 05/29/22 16:30 BP 155/91 05/29/22 16:43 Pulse Ox 94 05/29/22 16:30 O2 Del Method 05/29/22 16:59 05/29/22 05/29/22 05/29/22 06:59 14:59 22:59 Intake Total 150 / 150 Balance 150 / 150 Weight last 48 hrs Weight 166.468 kg Physical Exam Narrative: Exercise heart failure present Bilateral extremity edema present 2+ Bilateral crackles present Currently on room air Pleasant cooperative S1, S2 variable Abdomen soft distended Nonfocal neuro exam GCS 15 EOMI, PERRLA Data 05/29/22 12:55 05/29/22 12:55 A&P Assessment and plan (1) Obesity, morbid, BMI 50 or higher: (2) Diastolic CHF: Qualifiers: Heart failure chronicity: acute on chronic Qualified Code(s): I50.33 - Acute on chronic diastolic (congestive) heart failure (3) Insulin resistance: (4) High risk medication use: (5) Diabetes mellitus type 2, uncontrolled: (6) Positive sm/CARTOGRAPHIC ENGINEER antibody: (7) Atrial fibrillation: Qualifiers: Atrial fibrillation type: permanent Qualified Code(s): I48.21 - Permanent atrial fibrillation (8) Status post ablation of atrial fibrillation: Plan Diastolic CHF exacerbation I will give him IV diuretics with metolazone Monitor urine output We will request another echo if we could however it will be very hard to assess his EF properly because of his body habitus Acute kidney injury related to cardiorenal syndrome anticipate improvement with diuresis Patient does not want Zheng catheter placement for accurate urine output Patient uses a walker at home I will continue metolazone and IV diuretics Monitor for signs of contraction alkalosis and electrolyte imbalance Hypokalemia: Repleted Full code Cardiac diet DVT prophylaxis covered with Pradaxa Check digoxin level Attestations Medical Necessity Statement*: Less than 2 midnights anticipated Diagnoses Obesity, morbid, BMI 50 or higher E66.01 Diastolic CHF I50.33 Heart failure chronicity: acute on chronic Insulin resistance E88.81 High risk medication use Z79.899 Diabetes mellitus type 2, uncontrolled E11.65 Positive sm/CARTOGRAPHIC ENGINEER antibody R76.8 Atrial fibrillation I48.21 Atrial fibrillation type: permanent Status post ablation of atrial fibrillation Z98.890; Z86.79
--- NOTE | 2022-05-29 17:38 | USCV_ITS ---
Manuel Somers Age: 66 Gender: M : 1955 Exam Date: 05/29/2022 19:44 Ordering Phys: Josemanuel Roca MD Technologist: ONDINA Exam Location: [facility] [place] Indication: morbid obesity, evaluate for CHF, c/o SOB, atrial fibrillation. Patient states hx ablation therapy in remote past. BP: 155 / 91 HR: 66 Rhythm: Atrial fibrillation Technical Quality: Fair with OPTISON MEASUREMENTS (Male / Female) Normal Values 2D ECHO LV Diastolic Diameter PLAX 3.3 cm 4.2 - 5.9 / 3.9 - 5.3 cm LV Systolic Diameter PLAX 2.3 cm IVS Diastolic Thickness 2.0 cm 0.6 - 1.0 / 0.6 - 0.9 cm IVS Systolic Thickness 2.3 cm LVPW Diastolic Thickness 2.0 cm 0.6 - 1.0 / 0.6 - 0.9 cm LVPW Systolic Thickness 2.0 cm LVOT Diameter 2.5 cm LV Ejection Fraction 2D Teich 62.3 % LV Ejection Fraction MOD 2C 53.7 % LV Ejection Fraction 2C AL 53.9 % LA Diameter 4.5 cm LA Width 5.3 cm LA Height 6.1 cm RA Width 4.5 cm RA Height 4.6 cm Aorta at Sinotubular Diameter 2.6 cm IVC Diameter 1.4 cm M-MODE Aortic Annulus Diameter 3.4 cm LA Ao Ratio MM 1.3 MV E Point Septal Separation 0.3 cm DOPPLER AV Peak Velocity 162.0 cm/s LVOT Peak Velocity 95.0 cm/s AV Area Cont Eq vti 3.3 cm squared AV Area Cont Eq pk 3.0 cm squared MV Area PHT 4.1 cm squared MV E' Velocity 56.5 cm/s Mitral E to MV E' Ratio 7.7 Mitral E to LV E' Lateral Ratio 7.8 Mitral E to LV E' Septal Ratio 7.6 TV Peak E Velocity 48.0 cm/s PV Peak Velocity 118.0 cm/s RV Acceleration Time 0.1 s RV Ejection Time 0.3 s RV AcT/ET 0.2 FINDINGS Left Ventricle Normal left ventricular size and systolic function, EF 64 %. No gross wall motion abnormalities noted Right Ventricle Possibly of normal size Right Atrium Mildly increased right atrial size. Left Atrium Mildly increased left atrial size. Mitral Valve No gross abnormalities noted Aortic Valve Thickened aortic valve. Tricuspid Valve No gross abnormalities noted Pulmonic Valve Pulmonic valve not well visualized. Pericardium No significant pericardial effusion Aorta Normal ascending aorta dimension. IVC Inferior vena cava not visualized. CONCLUSIONS Technically difficult study because of the poor ultrasonic window. Echo contrast, Optison was used for endocardial delineation and ejection fraction estimation. Normal left ventricular size and systolic function, EF 64 %. No gross wall motion abnormalities noted. Thickened aortic valve. Mild biatrial enlargement No significant pericardial effusion. Dr Bridgette Staton MD FACC (Electronically Signed) Final Date: 31 May 2022 10:23 S
[2022-05-29] MEDS: insulin lispro 100 unit/1 mL SUBCUT ×2 (18:25→21:33)
[2022-05-29] MEDS: pregabalin 100 mg Capsule PO (18:25)
[2022-05-29] MEDS: metoprolol tartrate 50 mg Tablet PO (18:25)
[2022-05-29 18:27] LABS: Procalcitonin 0.23 ng/mL (0-0.5); Thyroid Stimulating Hormone 3.88 uIU/mL (0.27-4.20)
[2022-05-29 19:31] LABS: Anion Gap 13.9 (5-19); Blood Urea Nitrogen 36 mg/dL (8-23); Calcium 10.5 mg/dL (8.5-10.5); Carbon Dioxide 38 mmol/L (22-29); Chloride 86 mmol/L (98-107); Glomerular Filtration Rate 54.9 mL/min (90-130); Glucose 256 mg/dL (65-115); Osmolality Calculated 297 mOsm/kg (285-295); Sodium 135 mmol/L (136-145)
[2022-05-29 19:34] LABS: Potassium 2.9 mmol/L (3.5-5.1)
--- NOTE | 2022-05-29 19:46 | PC.NURSE ---
This nurse discussed with the pt Mr.James Somers that his potassium level is at 2.9 tonight and he refused to take potassium by IV all at due to it hurting real bad. This nurse discussed that lidocaine would be added and fluids could be ran along with it as well for comfort. The patient still refused any potassium in his IV. This nurse called Dr. Miranda and discussed the situation with him. Ruth asked for Po potassium instead of IV. This nurse discuused with the pt Mr. Somers that he could if we do not raise his potassium levels fast enough, Vale Somers was at bedside to witness this conversation and both the pt and his verbalized understaning of the risk and wants to do only PO potassium.
[2022-05-29] MEDS: potassium chloride ER 20 mEq Tablet 40 MEQ PO (19:59)
[2022-05-29 20:43] LABS: Glucose Point of Care 284 mg/dL (70-110)
[2022-05-29 20:58] LABS: Digoxin 1.3 ng/mL (0.6-1.2)
--- NOTE | 2022-05-29 23:00 | PC.NURSE ---
Pt has home medications at bedside in his 's purse. This nurse educated the patient for safety reasons we can lock the medications up to keep them secure. The pt did not want the meds locked up and to maintain them in the room. This nurse educated the pt that he is not to take any medications without receiving them from hospital staff or permission to do so prior. The pt verbalized understanding.
[2022-05-30] VITALS (8 sets, daily range): BP systolic 95–128; BP diastolic 60–76; PULSE 54–86; RESP 15–18; TEMP 36.4–36.7; O2SAT 97–100
--- NOTE | 2022-05-30 00:25 | PC.NURSE ---
This nurse and the nurse aids have both reapplied the telemetry leads on the pt multiple times during this shift. The patient is now asking this nurse to leave them off for the rest of the night. This nurse educated the pt on the importance of leaving them on especially with his potassium lvls being low. The pt verbalized understanding and has chose to keep them off. Dr Miranda has been made aware and is currently awaiting potassium results for the next PO potassium administration. Pt is also refusing to have a Foly catheter placed that is ordered. is currently at bedside and a witness to this conversation.
--- NOTE | 2022-05-30 01:13 | PC.NURSE ---
Potassium resulted at 3.1. Dr. Miranda notified and he asked to proceed as ordered with the 40 meq PO potassium.
[2022-05-30] MEDS: potassium chloride ER 20 mEq Tablet 40 MEQ PO ×4 (01:18→17:27)
[2022-05-30 03:10] LABS: Potassium 3.1 mmol/L (3.5-5.1)
[2022-05-30] MEDS: perflutren protein-a microsphr 0.22 mg/mL SDV 3 mL IV (05:32)
[2022-05-30 06:04] LABS: Basophils # 0.1 10^3/uL (0.0-0.1); Basophils % 0.6 %; Eosinophils # 0.2 10^3/uL (0.0-0.8); Eosinophils % 1.6 %; Hematocrit 39.3 % (42.0-52.0); Hemoglobin 12.2 g/dL (11.7-16.6); Lymphocytes # 2.4 10^3/uL (0.8-4.8); Lymphocytes % 17.1 %; Mean Corpuscular Hemoglobin 27.5 pg (28.0-34.0); Mean Corpuscular Volume 88.7 fl (80-94); Monocytes # 1.4 10^3/uL (0.2-0.9); Monocytes % 9.8 %; Neutrophils # 9.71 10^3/uL (1.8-7.7); Nucleated Red Blood Cells % 0 %; Platelet Count 222 10^3/cmm (130-400); Red Blood Count 4.43 10^6/uL (4.1-5.3); Red Cell Distribution Width 17.3 % (12.1-15.1); White Blood Count 13.9 10^3/uL (4.0-10.0)
[2022-05-30 06:27] LABS: Alanine Aminotransferase 13 U/L (0-41); Albumin Level 3.6 g/dL (3.5-5.2); Alkaline Phosphatase 58 U/L (40-130); Anion Gap 13.3 (5-19); Aspartate Amino Transferase 21 U/L (0-40); Blood Urea Nitrogen 35 mg/dL (8-23); Calcium 10.2 mg/dL (8.5-10.5); Carbon Dioxide 39 mmol/L (22-29); Chloride 88 mmol/L (98-107); Globulin 3.7 g/dL (1.3-4.6); Glomerular Filtration Rate 43.2 mL/min (90-130); Glucose 225 mg/dL (65-115); Magnesium 2.5 mg/dL (1.7-2.3); Osmolality Calculated 299 mOsm/kg (285-295); Potassium 3.3 mmol/L (3.5-5.1); Sodium 137 mmol/L (136-145); Total Bilirubin 0.7 mg/dL (0.15-1.2); Total Protein 7.3 g/dL (6.6-8.7)
[2022-05-30 06:41] LABS: Glucose Point of Care 244 mg/dL (70-110)
[2022-05-30] MEDS: metOLazone 5 MG Tablet PO (08:54)
[2022-05-30] MEDS: magnesium oxide 400 mg tablet 800 MG PO (08:54)
[2022-05-30] MEDS: metoprolol tartrate 50 mg Tablet PO ×2 (08:54→17:27)
[2022-05-30] MEDS: atorvastatin 40 mg Tablet 20 MG PO (08:54)
[2022-05-30] MEDS: pantoprazole DR 40 mg Tablet PO (08:54)
[2022-05-30] MEDS: pregabalin 100 mg Capsule PO ×2 (08:54→17:27)
[2022-05-30] MEDS: FUROsemide 10 mg/mL SDV 4mL 60 MG IVP (09:37)
[2022-05-30] MEDS: insulin lispro 100 unit/1 mL SUBCUT ×4 (09:41→21:35)
--- NOTE | 2022-05-30 11:00 | PM.PN ---
Subjective Subjective: Patient endorsing feeling slightly better More than a liter urine output Change IV Lasix to IV Bumex Plan is to discharge him tomorrow Patient is in agreement Currently on 2 L At home uses 2 to 3.5 L Vitals/I&O/Wt Last Vital Signs Temp 97.6 F 05/30/22 08:00 Pulse 86 05/30/22 08:00 Resp 18 05/30/22 08:00 BP 124/73 05/30/22 08:00 Pulse Ox 97 05/30/22 08:00 O2 Del Method 05/30/22 08:00 O2 Flow Rate 2 05/30/22 08:00 05/29/22 05/30/22 05/30/22 22:59 06:59 14:59 Intake Total 1110 / 1110 Output Total 700 / 700 350 / 350 Balance 1110 / 1110 -700 / 410 -350 / -350 Weight last 48 hrs Weight 169.7 kg Weight 166.468 kg Physical Exam Narrative: Clinical signs of fluid overload Edema of legs present Currently on 2 L Awake and alert Nonfocal neuro exam Mild crackles at base of lungs No audible stridor or wheezing Pleasant and cooperative Sitting at the bedside Data 05/30/22 05:32 05/30/22 05:32 A&P Assessment and plan (1) Obesity, morbid, BMI 50 or higher: (2) Primary osteoarthritis of knees, bilateral: (3) Diastolic CHF: Qualifiers: Heart failure chronicity: acute on chronic Qualified Code(s): I50.33 - Acute on chronic diastolic (congestive) heart failure (4) Insulin resistance: (5) Positive sm/SWORD SWALLOWER antibody: (6) Restrictive lung disease secondary to obesity: (7) Chronic cough: (8) Essential hypertension: (9) Localized swelling of both lower legs: (10) Obesity: Qualifiers: Obesity type: due to excess calories Obesity classification: adult class 3 (BMI >= 40) Serious obesity comorbidity presence: with serious comorbidity Body mass index: BMI 50.0-59.9 Qualified Code(s): E66.01 - Morbid (severe) obesity due to excess calories; Z68.43 - Body mass index (BMI) 50.0-59.9, adult (11) Atrial fibrillation: Qualifiers: Atrial fibrillation type: permanent Qualified Code(s): I48.21 - Permanent atrial fibrillation (12) Anticoagulant long-term use: Plan Diastolic CHF exacerbation Changed to IV Bumex today With Lasix made 1 L overnight Added metolazone Monitor for alkalosis and electrolyte imbalance Hypokalemia: Potassium repleted patient does not want any IV potassium replenishment Continue p.o. replenishment for now Magnesium normal COPD: Uses 2 to 2.5 L at home A-fib continue Pradaxa and AV jacobo blocking agent Cardiac diet Full code Plan to discharge him tomorrow DVT prophylaxis covered Attestations Medical Necessity Statement*: Possible discharge tomorrow Diagnoses Obesity, morbid, BMI 50 or higher E66.01 Primary osteoarthritis of knees, bilateral M17.0 Diastolic CHF I50.33 Heart failure chronicity: acute on chronic Insulin resistance E88.81 Positive sm/SWORD SWALLOWER antibody R76.8 Restrictive lung disease secondary to obesity J98.4; E66.9 Chronic cough R05 Essential hypertension I10 Localized swelling of both lower legs R22.43 Obesity E66.01; Z68.43 Obesity type: due to excess calories Obesity classification: adult class 3 (BMI >= 40) Serious obesity comorbidity presence: with serious comorbidity Body mass index: BMI 50.0-59.9 Atrial fibrillation I48.21 Atrial fibrillation type: permanent Anticoagulant long-term use Z79.01
[2022-05-30 11:16] LABS: Glucose Point of Care 365 mg/dL (70-110)
[2022-05-30 11:16] LABS: Glucose Point of Care 382 mg/dL (70-110)
--- NOTE | 2022-05-30 11:46 | PC.CHAP ---
Pastoral Care Encounter/Spiritual Assessment Type of Contact [] Declined rewrite editor visit [] Patient/Family/Request visit [] Outpatient visit [] Follow-up visit [] Physician referral [] Code/Alert [x] Routine visit [] Staff referral [] Actively dying [] Patient sleeping [] Family support [] [] Out of room [] Palliative care [] [] Receiving care in room [] Pre-surgical visit [] Trauma [] Long length of stay [] ICU visit [] Other: Relational/Emotional Strength [x] Patient feels connected with others/family/visitors/staff [] Distress [] Loneliness/isolation [] Abandonment Spirituality of Patient [x] Person of Katya [] Attends Bahai of their [place]ya x[] Believes in Prayer [] Reads Bible or Mandaeism materials [] There are Spiritual issues to be addressed Education Manager Interventions [x] Prayer [x] Active listening [x] Non-anxious presence [x] Spiritual/emotional support [] Crisis/trauma care [] Spiritual counseling [] Bereavement support [] Provided bereavement packet [] Provided Bible/devotional materials [] Provided toy/stuffed animal, coloring book to patient or family member [] Provided Communion [] Anointing/[place] [] Salvation [x Completed spiritual assessment [] Other: Impact on Illness or Injury [] Angry [] Fearful [] Anxious [] Often cries [] Exhaustion [] Unable to work [] Unable to attend taoism [] Unable to walk/stand [] Unable to read [] Unable to drive [] Unable to eat/drink [] Unable to sleep [] Unable to be with family [] Patient intubated [] Other: Summary Time spent with patient 10 min
[2022-05-30] MEDS: acetaZOLAMIDE 250 mg Tablet PO (12:21)
[2022-05-30 16:55] LABS: Glucose Point of Care 377 mg/dL (70-110)
[2022-05-30 20:44] LABS: Glucose Point of Care 402 mg/dL (70-110)
[2022-05-31 03:51] VITALS: BP 146/86; PULSE 84; RESP 16; TEMP 36.4; O2SAT 96
[2022-05-31 05:39] LABS: Anion Gap 12.1 (5-19); Blood Urea Nitrogen 34 mg/dL (8-23); Calcium 9.7 mg/dL (8.5-10.5); Carbon Dioxide 37 mmol/L (22-29); Chloride 89 mmol/L (98-107); Glomerular Filtration Rate 54.9 mL/min (90-130); Glucose 310 mg/dL (65-115); Osmolality Calculated 299 mOsm/kg (285-295); Potassium 3.1 mmol/L (3.5-5.1); Sodium 135 mmol/L (136-145)
[2022-05-31] MEDS: bumetanide 0.25 mg/mL SDV 10 mL 2 MG IVP (06:10)
[2022-05-31 06:36] LABS: Glucose Point of Care 305 mg/dL (70-110)
[2022-05-31 07:44] VITALS: PULSE 83; O2SAT 96
[2022-05-31 07:46] VITALS: BP 107/74; PULSE 73; TEMP 36.7; O2SAT 100
--- NOTE | 2022-05-31 08:06 | PM.DCS ---
Discharge Providers Date of Admission: 05/29/22 16:34 Date of Discharge: May 31, 2022 Attending Provider at Admission: Josemanuel Roca MD Attending Provider at Discharge: Josemanuel Roca MD Primary Care Provider: Marissa Ruiz Diagnoses at Discharge Discharge Diagnosis (1) Obesity, morbid, BMI 50 or higher: Status: Acute (2) Primary osteoarthritis of knees, bilateral: Status: Acute (3) Diastolic CHF: Status: Acute Qualifiers: Heart failure chronicity: acute on chronic Qualified Code(s): I50.33 - Acute on chronic diastolic (congestive) heart failure (4) Insulin resistance: Status: Acute (5) Positive sm/LUG BREAKER AND WIRE PULLER antibody: Status: Acute Permanent problem details: + LUG BREAKER AND WIRE PULLER antibody, negative Quinonez, negative DS DNA ab (6) Restrictive lung disease secondary to obesity: Status: Acute (7) Chronic cough: Status: Acute (8) Essential hypertension: Status: Acute (9) Localized swelling of both lower legs: Status: Acute (10) Obesity: Status: Acute Qualifiers: Body mass index: BMI 50.0-59.9 Obesity classification: adult class 3 (BMI >= 40) Obesity type: due to excess calories Serious obesity comorbidity presence: with serious comorbidity Qualified Code(s): E66.01 - Morbid (severe) obesity due to excess calories; Z68.43 - Body mass index (BMI) 50.0-59.9, adult (11) Atrial fibrillation: Status: Acute Qualifiers: Atrial fibrillation type: permanent Qualified Code(s): I48.21 - Permanent atrial fibrillation (12) Anticoagulant long-term use: Status: Acute Reason for Visit Reason for Visit: left arm numb,feet swelling Hospital Course Hospital Course 66-year-old male with morbid obesity, on Bumex at home, takes metolazone as well presented with chief complaint of weight gain of 20 pounds in the last 1 week, he was diuresed aggressively which made him go into contraction alkalosis he put out 3 L in 48 hours, his potassium was replenished, he does not want to take anything IV in terms of electrolytes, he was given p.o. potassium aggressively, potassium at the time of discharge is 3.1, creatinine is trending down at the time of discharge it is 1.3. Patient was given a dose of acetazolamide because of worsening of alkalosis At home I have asked him to take Bumex 2 mg in the daytime along potassium and only take twice a day if he thinks he is getting more short of breath gaining weight, I have asked him to keep his leg elevated above heart level at least 6 to 8 hours a day and use compression stockings Echo showed EF 64% no gross wall motion abnormality Uses 2 to 2.5 L of oxygen at baseline at home History of A-fib continue anticoagulating agent and AV jacobo blocking agent, held digoxin digoxin level was 1.3 Physical Exam Narrative: Morbidly obese Pleasant and cooperative S1, S2. Abdomen soft however distended Nonfocal neuro exam No audible stridor or wheezing Doing well on room air at the time of discharge Discharge Data Studies Completed and Pending Completed Studies During Hospitalization Category Date Time Status XR chest 1V portable [id number] Stat Exams 05/29/22 12:26 Completed Pending at discharge Category Date Time Status CV. echo wo/w contrast [id number] Routine Ultrasound 05/29/22 17:38 Taken Radiology Impressions Chest X-Ray 05/29/22 12:26 IMPRESSION: No acute findings. Laboratory Results WBC 13.9 10^3/uL (4.0-10.0) H 05/30/22 05:32 RBC 4.43 10^6/uL (4.1-5.3) 05/30/22 05:32 Hgb 12.2 g/dL (11.7-16.6) 05/30/22 05:32 Hct 39.3 % (42.0-52.0) L 05/30/22 05:32 MCV 88.7 fl (80-94) 05/30/22 05:32 MCH 27.5 pg (28.0-34.0) L 05/30/22 05:32 MCHC 31.0 g/dL (30.0-36.0) 05/30/22 05:32 RDW 17.3 % (12.1-15.1) H 05/30/22 05:32 Plt Count 222 10^3/cmm (130-400) 05/30/22 05:32 MPV 10.0 fL (7.4-10.4) 05/30/22 05:32 Neut % (Auto) 70.0 % 05/30/22 05:32 Lymph % (Auto) 17.1 % 05/30/22 05:32 Page % (Auto) 9.8 % 05/30/22 05:32 Eos % (Auto) 1.6 % 05/30/22 05:32 Baso % (Auto) 0.6 % 05/30/22 05:32 Neut # (Auto) 9.71 10^3/uL (1.8-7.7) H 05/30/22 05:32 Lymph # (Auto) 2.4 10^3/uL (0.8-4.8) 05/30/22 05:32 [place] # (Auto) 1.4 10^3/uL (0.2-0.9) H 05/30/22 05:32 Eos # (Auto) 0.2 10^3/uL (0.0-0.8) 05/30/22 05:32 Baso # (Auto) 0.1 10^3/uL (0.0-0.1) 05/30/22 05:32 Nucleated RBC % (auto) 0 % 05/30/22 05:32 Nucleated RBCs # 0.0 /100WBC 05/30/22 05:32 Sodium 135 mmol/L (136-145) L 05/31/22 04:58 Potassium 3.1 mmol/L (3.5-5.1) L 05/31/22 04:58 Chloride 89 mmol/L (98-107) L 05/31/22 04:58 Carbon Dioxide 37 mmol/L (22-29) H 05/31/22 04:58 Anion Gap 12.1 (5-19) 05/31/22 04:58 BUN 34 mg/dL (8-23) H 05/31/22 04:58 Creatinine 1.3 mg/dL (0.7-1.2) H 05/31/22 04:58 GFR Calculation 54.9 mL/min (90-130) L 05/31/22 04:58 Glucose 310 mg/dL (65-115) H 05/31/22 04:58 POC Glucose 305 mg/dL (70-110) H 05/31/22 06:32 Calculated Osmolality 299 mOsm/kg (285-295) H 05/31/22 04:58 Calcium 9.7 mg/dL (8.5-10.5) 05/31/22 04:58 Magnesium 2.5 mg/dL (1.7-2.3) H 05/30/22 05:32 Total Bilirubin 0.7 mg/dL (0.15-1.2) 05/30/22 05:32 AST 21 U/L (0-40) 05/30/22 05:32 ALT 13 U/L (0-41) 05/30/22 05:32 Alkaline Phosphatase 58 U/L (40-130) 05/30/22 05:32 Troponin T Baseline 41 ng/L (0-15) H 05/29/22 12:55 NT-Pro-B Natriuret Pep 286 pg/mL (0-125) H 05/29/22 12:55 Total Protein 7.3 g/dL (6.6-8.7) 05/30/22 05:32 Albumin 3.6 g/dL (3.5-5.2) 05/30/22 05:32 Globulin 3.7 g/dL (1.3-4.6) 05/30/22 05:32 Procalcitonin Cancelled 05/29/22 18:53 TSH 3.88 uIU/mL (0.27-4.20) 05/29/22 12:50 Digoxin 1.3 ng/mL (0.6-1.2) H 05/29/22 18:53 Vitals Last Vital Signs Temp 98.1 F 05/31/22 07:46 Pulse 73 05/31/22 07:46 Resp 16 05/31/22 03:51 BP 107/74 05/31/22 07:46 Pulse Ox 100 05/31/22 07:46 O2 Del Method 05/31/22 07:44 O2 Flow Rate 2.5 05/30/22 20:44 Discharge Plan Discharge Patient Disposition: Home Condition: Stable Prescriptions: Continued Pradaxa 150 mg capsule 150 mg PO BID pravastatin 40 mg tablet 40 mg PO DAILY Humulin R U-500 (Conc) Insulin 500 unit/mL solution See Rx Instructions .ROUTE .COMPLEX Label Comments: pt states he takes 200 units tid - qid Rx Instructions: per sliding scale TID magnesium oxide 400 mg magnesium tablet 800 mg PO BID metoprolol tartrate 100 mg tablet 50 mg PO BID pregabalin 100 mg capsule 100 mg PO BID MDD 2 Qty: 60 1RF (DME) Dexcom G6 Consultative Sales Associate Misc See Rx Instructions .Route Qty: 1 3RF Rx Instructions: Check BS 4 times a day. (DME) Diabetic shoes with 3 inserts See Rx Instructions .Route .MEDSUPPLY Qty: 1 0RF Rx Instructions: As directed [employer] (DME) Dexcom G6 Transmitter Device See Rx Instructions .Route Qty: 1 3RF Rx Instructions: As directed (DME) Dexcom G6 Sensor Device See Rx Instructions .ROUTE .COMPLEX Qty: 6 3RF Dose Instruction: USE 1 SENSOR UNDER THE SKIN DIRECTED TO MONITOR GLUCOSE READINGS Rx Instructions: USE 1 SENSOR UNDER THE SKIN DIRECTED TO MONITOR GLUCOSE READINGS Changed bumetanide 2 mg tablet 4 mg PO BID Qty: 60 0RF potassium chloride 20 mEq tablet extended release See Rx Instructions .ROUTE .COMPLEX Qty: 60 0RF Rx Instructions: 40 mEq in AM, 20 mEq at noon, 40mEq in the evening Held digoxin 250 mcg (0.25 mg) tablet 250 mcg PO DAILY Hold Instructions: Resume on 06/07/22. metolazone 5 mg Tablet 5 mg PO DAILY Qty: 15 0RF Hold Instructions: Resume on 06/07/22. Discharge Orders: Discharge Order (Routine); Ordered 05/31/22 Ordered By: Josemanuel Roca Referrals: [facility] [Provider Group] - 06/08/22 9:15 am Marissa Ruiz PA [Primary Care Provider] - 06/07/22 1:00 pm Discharge Diet: Low Salt Patient Instructions: Bumetanide (By mouth), Potassium Chloride (By mouth), Opioid Safety Discharge Attestations Time Spent in Discharge Care*: less than 30 min Quality Metrics Clinical Quality Measures [ No reported AMI, CVA or VTE this stay] Coding Level of Care Code Acute Code for Chg Fwd Diagnoses Obesity, morbid, BMI 50 or higher E66.01 Primary osteoarthritis of knees, bilateral M17.0 Diastolic CHF I50.33 Heart failure chronicity: acute on chronic Insulin resistance E88.81 Positive sm/LUG BREAKER AND WIRE PULLER antibody R76.8 Restrictive lung disease secondary to obesity J98.4; E66.9 Chronic cough R05 Essential hypertension I10 Localized swelling of both lower legs R22.43 Obesity E66.01; Z68.43 Body mass index: BMI 50.0-59.9 Obesity classification: adult class 3 (BMI >= 40) Obesity type: due to excess calories Serious obesity comorbidity presence: with serious comorbidity Atrial fibrillation I48.21 Atrial fibrillation type: permanent Anticoagulant long-term use Z79.01
[2022-05-31] MEDS: insulin lispro 100 unit/1 mL SUBCUT (08:35)
[2022-05-31] MEDS: pantoprazole DR 40 mg Tablet PO (08:38)
[2022-05-31] MEDS: pregabalin 100 mg Capsule PO (08:38)
[2022-05-31] MEDS: potassium chloride ER 20 mEq Tablet 40 MEQ PO (08:38)
[2022-05-31] MEDS: metoprolol tartrate 50 mg Tablet PO (08:38)
[2022-05-31] MEDS: atorvastatin 40 mg Tablet 20 MG PO (08:39)
--- NOTE | 2022-05-31 10:20 | PC.CHAP ---
Pastoral Care Encounter/Spiritual Assessment Type of Contact [x] Declined sledger visit [] Patient/Family/Request visit [] Outpatient visit [] Follow-up visit [] Physician referral [] Code/Alert [] Routine visit [] Staff referral [] Actively dying [] Patient sleeping [] Family support [] [] Out of room [] Palliative care [] [] Receiving care in room [] Pre-surgical visit [] Trauma [] Long length of stay [] ICU visit [] Other: Relational/Emotional Strength [] Patient feels connected with others/family/visitors/staff [] Distress [] Loneliness/isolation [] Abandonment Spirituality of Patient [] Person of Katya [] Attends Mu-Ism of their [place] [] Believes in Prayer [] Reads Bible or Amish materials [] There are Spiritual issues to be addressed Crm Developer Interventions [] Prayer [] Active listening [] Non-anxious presence [] Spiritual/emotional support [] Crisis/trauma care [] Spiritual counseling [] Bereavement support [] Provided bereavement packet [] Provided Bible/devotional materials [] Provided toy/stuffed animal, coloring book to patient or family member [] Provided Communion [] Anointing/[place] [] Salvation [] Completed spiritual assessment [] Other: Impact on Illness or Injury [] Angry [] Fearful [] Anxious [] Often cries [] Exhaustion [] Unable to work [] Unable to attend episcopalian [] Unable to walk/stand [] Unable to read [] Unable to drive [] Unable to eat/drink [] Unable to sleep [] Unable to be with family [] Patient intubated [] Other: Summary Declined sledger visit Time spent with patient 5 mins
[2022-05-31 11:02] VITALS: BP 107/74; PULSE 73; TEMP 36.7; O2SAT 100
== END 2022-05-31 09:55 | disposition home or self-care (01) ==
LOC: ER 15:47 → MEDSURG 19:36
PROVIDERS: Admitting Provider Internal Medicine; Emergency Provider Family Medicine; PCP Physician Assistant; Visit Provider Internal Medicine
DX: E66.01 Morbid (severe) obesity due to excess calories (principal); Z68.44 Body mass index [BMI] 60.0-69.9, adult; E87.3 Alkalosis; M17.0 Bilateral primary osteoarthritis of knee; I11.0 Hypertensive heart disease with heart failure; I50.33 Acute on chronic diastolic (congestive) heart failure; E88.81 Metabolic syndrome and other insulin resistance; R76.8 Other specified abnormal immunological findings in serum; E11.40 Type 2 diabetes mellitus with diabetic neuropathy, unspecified; R05.3 Chronic cough; I48.21 Permanent atrial fibrillation; Z79.01 Long term (current) use of anticoagulants; Z99.81 Dependence on supplemental oxygen; I48.91 Unspecified atrial fibrillation; E87.6 Hypokalemia; Z79.4 Long term (current) use of insulin; J44.9 Chronic obstructive pulmonary disease, unspecified; G47.33 Obstructive sleep apnea (adult) (pediatric); Z79.899 Other long term (current) drug therapy
CPT/HCPCS: 36415; 36416; 71045; 80048; 80053; 80162; 82962; 83735; 83880; 84132; 84145; 84443; 84484; 85025; 93005; 94664; 96365; 96366; 96367; 96372; 96375; 96376; 99285; C8929; G0378; J1815; J1940; J3475; J3480; J3490; Q9956

== ENCOUNTER → 2022-06-08 09:14 | Outpatient (BNVA) | payer OTHER, SELFPAY | PROVIDERS: PCP Physician Assistant; Visit Provider Internal Medicine Cardiovascular Disease | DX: I48.21 Permanent atrial fibrillation (principal); E78.5 Hyperlipidemia, unspecified; G47.33 Obstructive sleep apnea (adult) (pediatric); G89.29 Other chronic pain; M54.9 Dorsalgia, unspecified; Z79.01 Long term (current) use of anticoagulants; E11.65 Type 2 diabetes mellitus with hyperglycemia; Z79.4 Long term (current) use of insulin; E66.01 Morbid (severe) obesity due to excess calories; Z68.43 Body mass index [BMI] 50.0-59.9, adult; Z98.890 Other specified postprocedural states; I11.0 Hypertensive heart disease with heart failure; I50.30 Unspecified diastolic (congestive) heart failure | CPT/HCPCS: 99214 ==

== ENCOUNTER → 2022-09-05 08:47 | Outpatient (BNVA) | payer OTHER, SELFPAY | PROVIDERS: PCP Physician Assistant; Visit Provider Podiatrist Foot & Ankle Surgery | DX: E11.42 Type 2 diabetes mellitus with diabetic polyneuropathy (principal); L60.3 Nail dystrophy; L84 Corns and callosities; I73.9 Peripheral vascular disease, unspecified; M21.41 Flat foot [pes planus] (acquired), right foot; M21.42 Flat foot [pes planus] (acquired), left foot; Z79.4 Long term (current) use of insulin | CPT/HCPCS: 11056; 11721 ==

== ENCOUNTER → 2022-12-05 09:41 | Outpatient (BNVA) | payer OTHER, SELFPAY | PROVIDERS: PCP Physician Assistant; Visit Provider Podiatrist Foot & Ankle Surgery | DX: E11.42 Type 2 diabetes mellitus with diabetic polyneuropathy (principal); L60.3 Nail dystrophy; I73.9 Peripheral vascular disease, unspecified; L84 Corns and callosities; M21.41 Flat foot [pes planus] (acquired), right foot; M21.42 Flat foot [pes planus] (acquired), left foot; Z79.4 Long term (current) use of insulin | CPT/HCPCS: 11056; 11721 ==

== ENCOUNTER → 2022-12-07 09:45 | Outpatient (BNVA) | payer OTHER, SELFPAY | PROVIDERS: PCP Physician Assistant; Visit Provider Internal Medicine Cardiovascular Disease | DX: I48.21 Permanent atrial fibrillation (principal); I11.0 Hypertensive heart disease with heart failure; I50.30 Unspecified diastolic (congestive) heart failure; Z98.890 Other specified postprocedural states; Z86.79 Personal history of other diseases of the circulatory system; E66.01 Morbid (severe) obesity due to excess calories; Z68.43 Body mass index [BMI] 50.0-59.9, adult; E11.65 Type 2 diabetes mellitus with hyperglycemia; Z79.4 Long term (current) use of insulin; Z79.01 Long term (current) use of anticoagulants; E78.5 Hyperlipidemia, unspecified; G47.33 Obstructive sleep apnea (adult) (pediatric); M54.9 Dorsalgia, unspecified; G89.29 Other chronic pain | CPT/HCPCS: 99214 ==

== ENCOUNTER → 2022-12-18 09:11 | Outpatient (BNVA) | payer OTHER, SELFPAY | PROVIDERS: PCP Physician Assistant; Referring Provider Family Medicine; Visit Provider Internal Medicine | DX: E11.65 Type 2 diabetes mellitus with hyperglycemia (principal); E66.01 Morbid (severe) obesity due to excess calories; Z68.43 Body mass index [BMI] 50.0-59.9, adult; E88.81 Metabolic syndrome and other insulin resistance; E78.5 Hyperlipidemia, unspecified; Z79.4 Long term (current) use of insulin | CPT/HCPCS: 99214 ==

== ENCOUNTER → 2023-01-23 09:30 | Outpatient (BNVA) | payer OTHER, SELFPAY | PROVIDERS: PCP Physician Assistant; Visit Provider Internal Medicine | DX: E11.65 Type 2 diabetes mellitus with hyperglycemia (principal); E66.01 Morbid (severe) obesity due to excess calories; Z68.43 Body mass index [BMI] 50.0-59.9, adult; E78.5 Hyperlipidemia, unspecified; Z79.4 Long term (current) use of insulin | CPT/HCPCS: 99214 ==

== ENCOUNTER → 2023-02-06 09:27 | Outpatient (BNVA) | payer OTHER, SELFPAY | PROVIDERS: PCP Physician Assistant; Visit Provider Podiatrist Foot & Ankle Surgery | DX: E11.42 Type 2 diabetes mellitus with diabetic polyneuropathy (principal); L60.3 Nail dystrophy; I73.9 Peripheral vascular disease, unspecified; L84 Corns and callosities; Z79.4 Long term (current) use of insulin | CPT/HCPCS: 11056; 11721 ==

== ENCOUNTER → 2023-06-07 09:37 | Outpatient (BNVA) | payer OTHER, SELFPAY | PROVIDERS: PCP Physician Assistant; Visit Provider Internal Medicine Cardiovascular Disease | DX: Z98.890 Other specified postprocedural states (principal); Z86.79 Personal history of other diseases of the circulatory system; E78.5 Hyperlipidemia, unspecified; I10 Essential (primary) hypertension; E13.9 Other specified diabetes mellitus without complications; E66.01 Morbid (severe) obesity due to excess calories; G47.33 Obstructive sleep apnea (adult) (pediatric); Z68.43 Body mass index [BMI] 50.0-59.9, adult; Z79.4 Long term (current) use of insulin | CPT/HCPCS: 99214 ==

== ENCOUNTER → 2023-06-12 08:20 | Outpatient (BNVA) | payer OTHER, SELFPAY | PROVIDERS: PCP Physician Assistant; Visit Provider Podiatrist Foot & Ankle Surgery | DX: E11.8 Type 2 diabetes mellitus with unspecified complications (principal); E11.42 Type 2 diabetes mellitus with diabetic polyneuropathy; L60.3 Nail dystrophy; I73.9 Peripheral vascular disease, unspecified; L84 Corns and callosities; Z79.4 Long term (current) use of insulin | CPT/HCPCS: 11056; 11721 ==

== ENCOUNTER 2023-08-25 16:30 | Inpatient (IN) | payer OTHER, SELFPAY ==
[2023-08-25] VITALS (9 sets, daily range): BP systolic 95–132; BP diastolic 47–67; PULSE 52–86; RESP 15–20; TEMP 36.7–36.9; O2SAT 96–100; BMI 54.7
--- NOTE | 2023-08-25 16:34 | XRR_ITS ---
PROCEDURE INFORMATION: Exam: XR Chest Exam date and time: 08/25/2023 5:29 PM Age: 68 years old Clinical indication: Injury or trauma; Fall; Blunt trauma (contusions or hematomas) TECHNIQUE: Imaging protocol: Radiologic exam of the chest. Views: 1 view. COMPARISON: CR XR chest 1V portable [id number] 05/29/2022 12:39 PM FINDINGS: Lungs: Right basilar opacity. Pleural spaces: Unremarkable. No pleural effusion. No pneumothorax. Heart/Mediastinum: Unremarkable. No cardiomegaly. Bones/joints: Unremarkable. XR/XR chest 1V portable [id number] IMPRESSION: Right basilar opacity.
--- NOTE | 2023-08-25 16:34 | XRR_ITS ---
PROCEDURE INFORMATION: Exam: XR Left Knee Exam date and time: 08/25/2023 5:29 PM Age: 68 years old Clinical indication: Pain; Knee; Left; Additional info: Knee pain TECHNIQUE: Imaging protocol: Radiologic exam of the left knee. Views: 3 views. COMPARISON: CR XR knees AP WB w BI lmt ORTH 03/12/2022 8:03 AM FINDINGS: Bones/joints: Osseous structures are intact. Negative for fracture. Moderate tricompartmental DJD of the knee. Soft tissues: Normal. XR/XR knee LT 3V* [id number] IMPRESSION: No acute findings.
--- NOTE | 2023-08-25 16:35 | ECG_ITS ---
[facility] Test Date: 2023-08-25 Pat Name: Manuel Somers Department: Room: Gender: Male Stock Mover: : 1955 Requested By: Mio Reyna Order Number: [id number] Makayla MD: Bridgette Staton M.D. Measurements Intervals [place] Rate: 71 P: 0 MD: 0 QRS: -33 QRSD: 109 T: 13 QT: 414 QTc: 452 Interpretive Statements ATRIAL FIBRILLATION LEFT AXIS DEVIATION [QRS AXIS < -30] PATTERN CONSISTENT WITH PULMONARY DISEASE INCOMPLETE RIGHT BUNDLE BRANCH BLOCK [90+ ms QRS DURATION, TERMINAL R IN V1/V2, 40+ ms S IN I/aVL/V4/V5/V6] Compared to ECG 05/29/2022 13:19:27 Myocardial infarct finding no longer present Electronically Signed On 08-26-2023 8:34:41 CDT by Bridgette Staton M.D. [id number]
--- NOTE | 2023-08-25 16:40 | W.ED.WEAKNES ---
HPI - Weakness General: Chief complaint: Weakness Stated complaint: HYPERGLYCEMIA Time Seen by Provider: 08/25/23 16:32 Source: patient and EMS Mode of arrival: EMS Limitations: no limitations History of Present Illness: 68-year-old male states that he has been feeling weak over the last 5 to 6 days states it got much worse the last day. He states he had a fall yesterday due to the weakness he has some left knee pain for the fall EMS had to be called for lift assist he states today he just laid in bed has not been able to get out of bed or walk due to feeling extremely weak. He is a diabetic states he has not taken his insulin since early this morning his blood sugar was high with EMS and 550 he had had a slight cough he denies any fever denies any vomiting or diarrhea Associated symptoms: Denies chest pain, chills, fever(s), headache(s), nausea or vomiting Review of Systems Const: Reports: fatigue and malaise; Denies: fever(s), chills, body aches or change in appetite ENMT: Denies: throat pain or dental pain Card: Denies: chest pain Resp: Denies: dyspnea GI: Denies: abdominal pain, nausea, vomiting or diarrhea Musc: Reports: extremity pain; Denies: neck pain or back pain Skin/Breast: Denies: rash Neuro: Denies: headache(s) PFS ED PFSH: Medical History Obesity, morbid, BMI 50 or higher Primary osteoarthritis of knees, bilateral Diastolic CHF Insulin resistance Immunization counseling Diabetes mellitus type 2, uncontrolled High risk medication use Positive sm/OIL FILTERS INSPECTOR antibody + OIL FILTERS INSPECTOR antibody, negative Quinonez, negative DS DNA ab Inflammatory arthritis Restrictive lung disease secondary to obesity Chronic cough Localized swelling of both lower legs Essential hypertension Dyslipidemia Depression Atrial fibrillation BARBARA (obstructive sleep apnea) Obesity Anticoagulant long-term use Osteoarthritis Diabetic neuropathy Chronic back pain Surgical History History of arthroscopic knee surgery bilateral knees Status post ablation of atrial fibrillation Family History Father Family history of premature coronary artery disease Myocardial Infarction Mother Cancer Other CAD (coronary artery disease) Diabetes Hyperlipidemia Hypertension Rheumatoid arthritis Denies family history of Lupus Chronic kidney disease (CKD) Lung disease Stroke Social History Smoking and tobacco/nicotine status: never used tobacco/nicotine Second hand smoke exposure: Yes Alcohol intake: former Substance/Drug Use: never Lives independently: Yes Household members: spouse Marital status: service: Yes Current occupational status: retired and disabled Pets and animals: No Do you think of yourself as: Straight/Heterosexual Current gender identity: Male Physical Exam Const: COMMON NORMALS: patient oriented x3 GENERAL APPEARANCE: frail appearing HENMT: COMMON NORMALS: normocephalic and atraumatic HEAD & SCALP: normocephalic and atraumatic Neck/C-Spine: COMMON NORMALS: full ROM and supple Chest: COMMONS NORMALS: normal inspection of the chest Resp: COMMON NORMALS: No retractions and No use of accessory muscles OTHER: Rales noted on the right Cardio: COMMON NORMALS: regular rate, regular rhythm and No murmurs present (Cardio) RATE: regular rate RHYTHM: regular rhythm GI: COMMON NORMALS: Normal to inspection, nondistended, normoactive bowel sounds present, Soft to palpation, non-tender and no masses PALPATION: Yes Soft to palpation Extremity: COMMON NORMALS: full ROM NARRATIVE EXTREMITY EXAM: Tenderness noted to left knee no obvious deformity Neuro: COMMON NORMALS: patient oriented x3, moves all extremities and no focal motor deficits Psych: COMMON NORMALS: mental status grossly normal, Normal thought process present and cooperative THOUGHT PROCESS: Normal thought process present Skin: COMMON NORMALS: no rashes or lesions noted and no wounds GENERAL SKIN EXAM: no rashes or lesions noted Course Vital Signs: Vital signs: Vital Signs Temperature 98.4 F 08/25/23 16:31 Pulse Rate 73 08/25/23 16:31 Respiratory Rate 20 H 08/25/23 16:31 Blood Pressure 95/57 08/25/23 16:31 Pulse Oximetry 96 08/25/23 16:31 Oxygen Delivery Me thod Room Air 08/25/23 16:31 MDM - Weakness Medical Decision Making Patient presents here with generalized weakness he was found to have a right lower lobe pneumonia he also has acute kidney injury likely from dehydration he is hyperglycemic have give him insulin along with sepsis bolus of fluids for his ideal body weight his blood pressure here has been normal did give him IV antibiotics as well. I spoke to the hospitalist will admit Medical Records I reviewed the patient's medical records. Lab Data I reviewed the patient's lab results. 08/25/23 16:15 08/25/23 16:15 Laboratory Results WBC 17.16 10^3/uL (3.29-11.43) H 08/25/23 16:15 RBC 4.56 10^6/uL (3.85-5.65) 08/25/23 16:15 Hgb 12.90 g/dL (11.27-16.99) 08/25/23 16:15 Hct 37.8 % (37-53) 08/25/23 16:15 MCV 82.9 fl (82-101) 08/25/23 16:15 MCH 28.3 pg (27-33) 08/25/23 16:15 MCHC 34.1 g/dL (30-55) 08/25/23 16:15 RDW 14.6 % (12.1-15.1) 08/25/23 16:15 Plt Count 286 10^3/cmm (157-399) 08/25/23 16:15 MPV 10.3 fL (7.4-10.4) 08/25/23 16:15 Neut % (Auto) 82.4 % 08/25/23 16:15 Lymph % (Auto) 9.0 % 08/25/23 16:15 [place] % (Auto) 7.1 % 08/25/23 16:15 Eos % (Auto) 0.5 % 08/25/23 16:15 Baso % (Auto) 0.3 % 08/25/23 16:15 Neut # (Auto) 14.14 10^3/uL (1.8-7.7) H 08/25/23 16:15 Lymph # (Auto) 1.6 10^3/uL (0.8-4.8) 08/25/23 16:15 [place] # (Auto) 1.2 10^3/uL (0.2-0.9) H 08/25/23 16:15 Eos # (Auto) 0.1 10^3/uL (0.0-0.8) 08/25/23 16:15 Baso # (Auto) 0.1 10^3/uL (0.0-0.1) 08/25/23 16:15 Nucleated RBC % (auto) 0 % 08/25/23 16:15 Nucleated RBCs # 0.0 /100WBC 08/25/23 16:15 PT 19.90 SECONDS (12.1-14.9) H 08/25/23 16:15 INR 1.63 (0.8-1.2) H 08/25/23 16:15 Sodium 122 mmol/L (136-145) L 08/25/23 16:15 Potassium 3.5 mmol/L (3.5-5.1) 08/25/23 16:15 Chloride 75 mmol/L (98-107) L 08/25/23 16:15 Carbon Dioxide 34 mmol/L (22-29) H 08/25/23 16:15 Anion Gap 16.5 (5-19) 08/25/23 16:15 BUN 57 mg/dL (8-23) H 08/25/23 16:15 Creatinine 1.8 mg/dL (0.7-1.2) H 08/25/23 16:15 GFR Calculation 37.5 mL/min (90-130) L 08/25/23 16:15 Glucose 598 mg/dL (65-115) H* 08/25/23 16:15 POC Glucose > 600 mg/dL (70-110) H* 08/25/23 16:46 Calculated Osmolality 298 mOsm/kg (285-295) H 08/25/23 16:15 Lactic Acid 2.8 mmol/L (0.5-2.2) H 08/25/23 16:15 Calcium 9.5 mg/dL (8.5-10.5) 08/25/23 16:15 Magnesium 2.6 mg/dL (1.7-2.3) H 08/25/23 16:15 Total Bilirubin 0.5 mg/dL (0.15-1.2) 08/25/23 16:15 AST 17 U/L (0-40) 08/25/23 16:15 ALT 12 U/L (0-41) 08/25/23 16:15 Alkaline Phosphatase 101 U/L (40-130) 08/25/23 16:15 Creatine Kinase 181 U/L (39-308) 08/25/23 16:15 NT-Pro-B Natriuret Pep 480 pg/mL (0-125) H 08/25/23 16:15 Total Protein 8.0 g/dL (6.6-8.7) 08/25/23 16:15 Albumin 3.8 g/dL (3.5-5.2) 08/25/23 16:15 Globulin 4.2 g/dL (1.3-4.6) 08/25/23 16:15 TSH 2.01 uIU/mL (0.27-4.20) 08/25/23 16:15 Serum Ketones Negative (Negative) 08/25/23 16:15 All radiology interpretation(s) finalized by discharge EKG Data EKG 1: I personally reviewed and interpreted this EKG as follows: EKG interpretation date: 08/25/23 EKG interpretation time: 16:58 Interpretation: afib with rvr hr [address] or t wave abnormalities qrs 109 qtc 437 Discharge Plan Discharge Patient Disposition: Admitted As Inpatient Clinical Impression: Pneumonia, Hyperglycemia Condition: Stable Coding Level of Care Code ED Spiral Winder for Edwin Mcfarland
[2023-08-25] MEDS: sodium chloride 0.9% 1,000 ML 999 ML IV ×2 (16:48→17:53)
[2023-08-25 16:50] LABS: Basophils # 0.1 10^3/uL (0.0-0.1); Basophils % 0.3 %; Eosinophils # 0.1 10^3/uL (0.0-0.8); Eosinophils % 0.5 %; Hematocrit 37.8 % (37-53); Lymphocytes # 1.6 10^3/uL (0.8-4.8); Mean Corpuscular HGB Conc 34.1 g/dL (30-55); Mean Corpuscular Hemoglobin 28.3 pg (27-33); Mean Corpuscular Volume 82.9 fl (82-101); Mean Platelet Volume 10.3 fL (7.4-10.4); Monocytes # 1.2 10^3/uL (0.2-0.9); Monocytes % 7.1 %; Neutrophils # 14.14 10^3/uL (1.8-7.7); Neutrophils % 82.4 %; Nucleated Red Blood Cells % 0 %; Platelet Count 286 10^3/cmm (157-399); Red Blood Count 4.56 10^6/uL (3.85-5.65); Red Cell Distribution Width 14.6 % (12.1-15.1); White Blood Count 17.16 10^3/uL (3.29-11.43)
[2023-08-25 16:50] LABS: Glucose Point of Care > 600 mg/dL (70-110)
[2023-08-25 17:03] LABS: INR 1.63 (0.8-1.2)
[2023-08-25] MEDS: insulin regular-human 100 units/1 mL 10 UNIT IVP (17:06)
[2023-08-25 17:13] LABS: Lactic Sepsis W/Reflex 2.8 mmol/L (0.5-2.2)
[2023-08-25 17:22] LABS: Alanine Aminotransferase 12 U/L (0-41); Albumin Level 3.8 g/dL (3.5-5.2); Alkaline Phosphatase 101 U/L (40-130); Anion Gap 16.5 (5-19); Aspartate Amino Transferase 17 U/L (0-40); Blood Urea Nitrogen 57 mg/dL (8-23); Calcium 9.5 mg/dL (8.5-10.5); Carbon Dioxide 34 mmol/L (22-29); Chloride 75 mmol/L (98-107); Creatine Phosphokinase 181 U/L (39-308); Globulin 4.2 g/dL (1.3-4.6); Glomerular Filtration Rate 37.5 mL/min (90-130); Magnesium 2.6 mg/dL (1.7-2.3); NT Pro B Type Natriuretic Pept 480 pg/mL (0-125); Osmolality Calculated 298 mOsm/kg (285-295); Potassium 3.5 mmol/L (3.5-5.1); Sodium 122 mmol/L (136-145); Thyroid Stimulating Hormone 2.01 uIU/mL (0.27-4.20); Total Bilirubin 0.5 mg/dL (0.15-1.2)
[2023-08-25 17:25] LABS: Creatinine Clr Calc Pharmacy 54.7406
[2023-08-25 17:26] LABS: Glucose 598 mg/dL (65-115)
[2023-08-25 17:28] LABS: Ketone (Acetest) Serum Negative (Negative)
[2023-08-25] MEDS: sodium chloride 0.9% 500 ML 999 ML IV (17:35)
[2023-08-25 17:49] LABS: Add Urine Microscopic? NO; Charge for UA Resulting for Rev
[2023-08-25 17:51] LABS: Protein Urine Neg (Negative); Urine Appearance Clear (CLEAR); Urine Color Yellow (Yellow); pH Urine 7 (5-7)
[2023-08-25 17:52] LABS: Bilirubin Urine Neg (Negative); Blood Urine Neg (Negative); Glucose Urine UA 4+ (Normal); Ketones Urine Negative (Negative); Leukocyte Esterase Urine Negative (Negative); Nitrate Urine Negative (Negative); Urobilinogen Urine Norm (Negative)
[2023-08-25 17:55] LABS: Glucose Point of Care 522 mg/dL (70-110)
[2023-08-25] MEDS: cefTRIAXone 1,000 MG in sodium chloride 0.9% (plus) 50 ML 100 MG IV (18:10)
--- NOTE | 2023-08-25 18:33 | PM.HP ---
Providers/Chief Complaint Admitting Physician: Sarina Campbell MD Primary Care Provider: Marissa Ruiz Chief Complaint: HYPERGLYCEMIA History of Present Illness Manuel Somers is a 68 year old male with chronic diastolic CHF, restrictive lung disease due to obesity, BARBARA, permanent atrial fibrillation on Pradaxa, type 2 diabetes mellitus with neuropathy, hypertension, hyperlipidemia, and inflammatory arthritis presenting with lethargy and shortness of breath. He has had increased fatigue and generalized weakness for the past 6 5 to 6 days. He fell yesterday and called EMS today for lift assist. His glucometer read his blood sugar as high and it was 550 mg/dL for EMS. His serum glucose was 598 and he was received 10 units of IV regular insulin. His repeat glucose was 522 mg/dL. He does not have any evidence of DKA. He has been having polydipsia and polyuria. He also reports dyspnea on and was hypoxic on room air. He is currently on 2 L/min O2. Official chest x-ray read is pending but he appears to have a right lower lobe pneumonia. He was afebrile and has had soft blood pressures in the ED. Lactic acid was elevated to 2.8 mmol/L. Sepsis IV fluid bolus was ordered in the ED. He also received ceftriaxone and azithromycin. Review of Systems General: Reports: 10 or more systems reviewed and unremarkable except in HPI and below Medications/Allergies Home Medications Medication Instructions Recorded Confirmed Last Taken Type dabigatran etexilate 150 mg 150 mg PO BID 03/26/19 06/12/23 05/29/22 History capsule (Pradaxa) pravastatin 40 mg tablet 40 mg PO DAILY 03/26/19 06/12/23 05/28/22 History pregabalin 100 mg capsule 100 mg PO BID #60 caps 04/02/19 06/12/23 05/29/22 Rx digoxin 250 mcg (0.25 mg) tablet 250 mcg PO DAILY 12/25/19 06/12/23 05/29/22 History magnesium oxide 800 mg PO BID 12/25/19 06/12/23 05/29/22 History blood-glucose meter,continuous #1 ea 01/09/21 06/12/23 Unknown Rx (Dexcom G6 Occupational Health Nurse Manager) metoprolol tartrate 100 mg tablet 50 mg PO BID 03/10/21 06/12/23 05/29/22 History Diabetic shoes with 3 inserts #1 ea 01/25/22 03/13/24 Unknown Rx metolazone 5 mg tablet 5 mg PO DAILY #15 tabs 01/25/22 06/12/23 05/29/22 Rx potassium chloride 20 mEq See Rx Instructions .Route 06/08/22 06/12/23 Unknown Rx tablet,extended release .COMPLEX #60 tabs insulin syringe,safetyneedle 0.5 #100 ea 01/02/23 06/12/23 Unknown Rx mL 31 gauge x 15/64 (BD SafetyGlide Insulin Syringe) bumetanide 2 mg tablet 4 mg (2 x 2 mg) PO BID #60 tabs 06/10/23 06/12/23 Unknown Rx blood-glucose sensor (Dexcom G6 #6 ea 07/26/23 Unknown Rx Sensor device) blood-glucose transmitter (Dexcom #1 ea 07/26/23 Unknown Rx G6 Transmitter device) insulin regular hum U-500 conc 500 157 unit (0.314 mL) SUBCUT 08/05/23 Unknown Rx unit/mL subcutaneous soln (Humulin TIDWMEAL 30 days #28.26 mL R U-500 (Concentrated) Insulin) Allergies Allergy/AdvReac Type Severity Reaction Status Date / Time methotrexate Allergy Unknown Unknown Verified 06/07/23 09:45 leflunomide AdvReac Intermediate rash Verified 06/07/23 09:45 PFSH Acute PFSH: Medical History (Updated 08/25/23 @ 18:48 by Sarina Campbell MD) Diastolic CHF Obesity, morbid, BMI 50 or higher Primary osteoarthritis of knees, bilateral Insulin resistance Immunization counseling Diabetes mellitus type 2, uncontrolled High risk medication use Positive sm/TRANSMISSIONS SYSTEMS OPERATOR antibody + TRANSMISSIONS SYSTEMS OPERATOR antibody, negative Quinonez, negative DS DNA ab Inflammatory arthritis Restrictive lung disease secondary to obesity Chronic cough Localized swelling of both lower legs Essential hypertension Dyslipidemia Depression Atrial fibrillation BARBARA (obstructive sleep apnea) Obesity Anticoagulant long-term use Osteoarthritis Diabetic neuropathy Chronic back pain Surgical History History of arthroscopic knee surgery bilateral knees Status post ablation of atrial fibrillation Family History Father Family history of premature coronary artery disease Myocardial Infarction Mother Cancer Other CAD (coronary artery disease) Diabetes Hyperlipidemia Hypertension Rheumatoid arthritis Denies family history of Lupus Chronic kidney disease (CKD) Lung disease Stroke Social History Smoking and tobacco/nicotine status: never used tobacco/nicotine Second hand smoke exposure: Yes Alcohol intake: former Substance/Drug Use: never Lives independently: Yes Household members: spouse Marital status: service: Yes Current occupational status: retired and disabled Pets and animals: No Do you think of yourself as: Straight/Heterosexual Current gender identity: Male Vitals/I&O/Wt Last Vital Signs Temp 98.4 F 08/25/23 16:31 Pulse 73 08/25/23 16:31 Resp 20 H 08/25/23 16:31 BP 95/57 08/25/23 16:31 Pulse Ox 96 08/25/23 16:31 O2 Del Method Room Air 08/25/23 16:31 Weight last 48 hrs Weight 154.221 kg Physical Exam Narrative: GEN: Lethargic, cooperative Neuro: Oriented x 4, no focal neuro deficits HEENT: Normocephalic and atraumatic, PERRLA, EOMI Neck: Supple, no JVD Cardio: Normal rate, irregular regular rhythm, no murmur Lungs: Normal effort, diminished breath sounds Abdomen: Obese, soft, nontender, normal bowel sounds Extremities: No edema Data 08/25/23 16:15 08/25/23 16:15 Micro: Microbiology 08/25/23 18:11 Blood Culture - Preliminary Blood SPECIMEN COLLECTED 08/25/23 18:09 Blood Culture - Preliminary Blood SPECIMEN COLLECTED A&P Assessment and plan (1) Diabetes mellitus type 2, uncontrolled: (2) Hyperglycemia: (3) Community acquired pneumonia: (4) BARBARA (obstructive sleep apnea): (5) Diastolic CHF: Qualifiers: Heart failure chronicity: acute on chronic Qualified Code(s): I50.33 - Acute on chronic diastolic (congestive) heart failure (6) Obesity, morbid, BMI 50 or higher: (7) Atrial fibrillation: Qualifiers: Atrial fibrillation type: permanent Qualified Code(s): I48.21 - Permanent atrial fibrillation (8) Essential hypertension: (9) Anticoagulant long-term use: (10) Dyslipidemia: Plan Generalized weakness ? He fell yesterday and required lift assist from EMS today ? Maintain fall precautions ? PT and OT consults Type 2 diabetes uncontrolled with HHS ? No evidence of DKA at this time ? His initial serum glucose was 598 mg/dL and decreased to 522 mg/dL after 10 units of IV regular insulin ? Started him on insulin drip ? Monitor glucose closely Sepsis Community-acquired pneumonia ? Leukocytosis, tachypnea, elevated lactic acid and hypoxia ? He is currently on 2 L/min O2; no home oxygen ? He was given sepsis IV bolus in the ED; caution with IV fluids given his CHF history ? Continue ceftriaxone and azithromycin ? Holding antihypertensives; monitor blood pressure closely ? Monitor O2 sats TAYLOR on CKD stage III ? Secondary to dehydration ? Holding diuretics; IV fluids as above ? Monitor serum creatinine avoid nephrotoxic meds Permanent atrial fibrillation ? A-fib despite cardiac ablation ? Continue metoprolol; will hold digoxin given his TAYLOR ? Continue Pradaxa Chronic diastolic CHF ? Holding his bumetanide and metolazone; restart once appropriate Hypertension ? Holding antihypertensives; monitor blood pressure Hyperlipidemia ? Continue statin BARBARA ? Does not wear CPAP Full code VTE prophylaxis: On Pradaxa Attestations Medical Necessity Statement*: Patient requires inpatient hospitalization for pneumonia and type 2 diabetes with HHS. He also has TAYLOR. He is on IV fluids, IV antibiotics, and insulin drip. He is anticipated to spend more than 2 midnights. Critical Care Time: The high probability of a clinically significant, sudden or life threatening deterioration of the patient's cardiac, respiratory, and endocrine system(s) required my full and direct attention, intervention and personal management. The critical care time is as shown. This time is in addition to time spent performing any reported procedures but includes the following: [x] Data and vital sign review and interpretation [x] Patient assessment, examination and intervention [x] Documentation [x] Medication orders and management Critical Care Time (min): 50 Coding Level of Care Code Critical Care >/= 30 minutes Diagnoses Diabetes mellitus type 2, uncontrolled E11.65 Hyperglycemia R73.9 Community acquired pneumonia J18.9 BARBARA (obstructive sleep apnea) G47.33 Diastolic CHF I50.33 Heart failure chronicity: acute on chronic Obesity, morbid, BMI 50 or higher E66.01 Chronic atrial fibrillation I48.21 Atrial fibrillation type: permanent Essential hypertension I10 Anticoagulant long-term use Z79.01 Dyslipidemia E78.5
[2023-08-25 18:47] LABS: Reflex Lactate Order REFLEX LACTIC ORDERD
--- NOTE | 2023-08-25 19:03 | PC.NURSE ---
ABX LATE DUE TO DELAYED BLOOD CULTURES. FIRST ABX INFUSED, PT REMOVED IV. SECOND ABX NOW DELAYED.
[2023-08-25] MEDS: azithromycin 500 MG in sodium chloride 0.9% 250 ML 250 MG IV (19:26)
[2023-08-25 20:20] LABS: Lactic Acid level (Lactate) 1.8 mmol/L (0.5-2.2)
[2023-08-25] MEDS: INSULIN REGULAR IN 0.9 % NACL 100 UNIT/100 ML BAG 15 UNIT IV (20:22)
[2023-08-25] MEDS: potassium chloride ER 20 mEq Tablet 40 MEQ PO (20:57)
[2023-08-25 21:11] LABS: Digoxin 1.5 ng/mL (0.6-1.2)
[2023-08-25 22:34] LABS: Blood Urea Nitrogen 53 mg/dL (8-23); Calcium 9.2 mg/dL (8.5-10.5); Carbon Dioxide 33 mmol/L (22-29); Chloride 83 mmol/L (98-107); Creatinine Clr Calc Pharmacy 57.9607; Glucose 426 mg/dL (65-115); Osmolality Calculated 299 mOsm/kg (285-295); Sodium 128 mmol/L (136-145)
[2023-08-25 23:12] LABS: Glucose Point of Care 398 mg/dL (70-110)
[2023-08-25 23:12] LABS: Glucose Point of Care 546 mg/dL (70-110)
[2023-08-25 23:12] LABS: Glucose Point of Care 293 mg/dL (70-110)
[2023-08-25] MEDS: lidocaine 1% 5 ML in potassium chloride premix 100 ML 26.25 ML IV (23:42)
[2023-08-26] VITALS (29 sets, daily range): BP systolic 91–175; BP diastolic 46–113; PULSE 52–87; RESP 14–22; TEMP 36.4–36.9; O2SAT 90–99
[2023-08-26 00:42] LABS: Glucose Point of Care 327 mg/dL (70-110)
[2023-08-26 01:13] LABS: Glucose Point of Care 282 mg/dL (70-110)
[2023-08-26 02:13] LABS: Glucose Point of Care 270 mg/dL (70-110)
[2023-08-26 03:15] LABS: Glucose Point of Care 272 mg/dL (70-110)
[2023-08-26] MEDS: INSULIN REGULAR IN 0.9 % NACL 100 UNIT/100 ML BAG 13 UNIT IV (03:16)
[2023-08-26 04:17] LABS: Basophils # 0.1 10^3/uL (0.0-0.1); Basophils % 0.4 %; Eosinophils # 0.1 10^3/uL (0.0-0.8); Eosinophils % 0.8 %; Hematocrit 35.7 % (37-53); Lymphocytes # 1.6 10^3/uL (0.8-4.8); Lymphocytes % 14.6 %; Mean Corpuscular HGB Conc 33.1 g/dL (30-55); Mean Corpuscular Hemoglobin 28.2 pg (27-33); Mean Corpuscular Volume 85.4 fl (82-101); Mean Platelet Volume 9.9 fL (7.4-10.4); Monocytes # 0.9 10^3/uL (0.2-0.9); Monocytes % 8.2 %; Neutrophils # 8.43 10^3/uL (1.8-7.7); Neutrophils % 75.1 %; Nucleated Red Blood Cells % 0 %; Platelet Count 226 10^3/cmm (157-399); Red Blood Count 4.18 10^6/uL (3.85-5.65); Red Cell Distribution Width 14.8 % (12.1-15.1); White Blood Count 11.23 10^3/uL (3.29-11.43)
[2023-08-26 04:29] LABS: Glucose Point of Care 232 mg/dL (70-110)
[2023-08-26 04:40] LABS: Albumin Level 3.5 g/dL (3.5-5.2); Anion Gap 11.1 (5-19); Blood Urea Nitrogen 49 mg/dL (8-23); Carbon Dioxide 35 mmol/L (22-29); Chloride 92 mmol/L (98-107); Creatinine Clr Calc Pharmacy 71.5781; Glomerular Filtration Rate 50.1 mL/min (90-130); Glucose 257 mg/dL (65-115); Magnesium 2.6 mg/dL (1.7-2.3); Phosphorus 2.9 mg/dL (2.5-4.5); Potassium 3.1 mmol/L (3.5-5.1); Sodium 135 mmol/L (136-145)
[2023-08-26 05:19] LABS: Glucose Point of Care 175 mg/dL (70-110)
[2023-08-26] MEDS: dextrose 5%-ns + KCl 20 20 MEQ/1,000 ML BAG 100 MEQ IV ×2 (05:24→15:27)
[2023-08-26 06:14] LABS: Glucose Point of Care 157 mg/dL (70-110)
[2023-08-26 07:30] LABS: Glucose Point of Care 219 mg/dL (70-110)
[2023-08-26 08:03] LABS: Glucose Point of Care 235 mg/dL (70-110)
[2023-08-26 08:16] LABS: Glucose Point of Care 258 mg/dL (70-110)
[2023-08-26] MEDS: atorvastatin 40 mg Tablet 20 MG PO (08:47)
[2023-08-26] MEDS: metoprolol tartrate 25 mg Tablet 50 MG PO ×2 (08:50→17:36)
[2023-08-26 09:03] LABS: Glucose Point of Care 363 mg/dL (70-110)
--- NOTE | 2023-08-26 09:45 | PC.NURSE ---
Dr Benitez notified I & O s will be inaccurate as patient urinates mostly in the floor and not the BSC.
--- NOTE | 2023-08-26 09:59 | P.PN_ITS ---
Subjective 2 Subjective: H&P reviewed. Fingerstick in the 300 range. No anion gap. Patient states he has been feeling generalized weak over the past few days. Does not know his last A1c. Medications: Reviewed: Yes Vitals/I&O/Wt Last Vital Signs Temp 97.5 F L 08/26/23 08:00 Pulse 87 08/26/23 09:00 Resp 22 H 08/26/23 09:00 BP 131/63 08/26/23 09:00 Pulse Ox 98 08/26/23 09:00 O2 Del Method Nasal Cannula 08/26/23 09:00 O2 Flow Rate 2.5 08/26/23 09:00 08/25/23 08/26/23 08/26/23 22:59 06:59 14:59 Intake Total 2824.5 / 2824.5 289.008 / 3113.508 2.800 / 2.800 Output Total 850 / 850 1300 / 2150 Balance 1974.5 / 1974.5 -1010.992 / 963.508 2.800 / 2.800 Weight last 48 hrs Weight 158.349 kg Weight 158.349 kg Weight 158.531 kg Weight 154.221 kg Physical Exam 2 Narrative: General: No acute distress, AO x3 HEENT: PERRLA, pupils bilaterally equal and reactive, pallors not present Chest: Normal vesicular breath sounds, no added sounds, equal good air entry bilaterally CVS: S1-S2 regular, no murmurs, no tachycardia, no gallops, no rubs Abdomen: Soft, nontender, no organomegaly, bowel sounds present Neuro: No focal deficits, no facial deformity, AO x3, power 5/5 in all limbs Data 08/26/23 03:38 08/26/23 03:38 Micro: Microbiology 08/25/23 18:11 Blood Culture - Preliminary Blood SPECIMEN COLLECTED 08/25/23 18:09 Blood Culture - Preliminary Blood SPECIMEN COLLECTED A&P Assessment and plan (1) Diabetes mellitus type 2, uncontrolled: (2) Hyperglycemia: (3) Community acquired pneumonia: (4) BARBARA (obstructive sleep apnea): (5) Diastolic CHF: Qualifiers: Heart failure chronicity: acute on chronic Qualified Code(s): I50.33 - Acute on chronic diastolic (congestive) heart failure (6) Obesity, morbid, BMI 50 or higher: (7) Atrial fibrillation: Qualifiers: Atrial fibrillation type: permanent Qualified Code(s): I48.21 - Permanent atrial fibrillation (8) Essential hypertension: (9) Anticoagulant long-term use: (10) Dyslipidemia: Plan Generalized weakness ? He fell yesterday and required lift assist from EMS today ? Maintain fall precautions ? PT and OT consults Type 2 diabetes uncontrolled with HHS ? No evidence of DKA at this time ? His initial serum glucose was 598 mg/dL and decreased to 522 mg/dL after 10 units of IV regular insulin ? Started him on insulin drip ? Monitor glucose closely Sepsis Community-acquired pneumonia ? Leukocytosis, tachypnea, elevated lactic acid and hypoxia ? He is currently on 2 L/min O2; no home oxygen ? He was given sepsis IV bolus in the ED; caution with IV fluids given his CHF history ? Continue ceftriaxone and azithromycin ? Holding antihypertensives; monitor blood pressure closely ? Monitor O2 sats TAYLOR on CKD stage III ? Secondary to dehydration ? Holding diuretics; IV fluids as above ? Monitor serum creatinine avoid nephrotoxic meds Permanent atrial fibrillation ? A-fib despite cardiac ablation ? Continue metoprolol; will hold digoxin given his TAYLOR ? Continue Pradaxa Chronic diastolic CHF ? Holding his bumetanide and metolazone; restart once appropriate Hypertension ? Holding antihypertensives; monitor blood pressure Hyperlipidemia ? Continue statin BARBARA ? Does not wear CPAP Full code VTE prophylaxis: On Pradaxa Plan for today August 26, 2023. Blood sugar better controlled. Discontinue insulin drip. Overlap with Lantus 50 units and high-dose insulin sliding scale. Check HbA1c. Per review of outpatient endocrinology notes, it appears patient was also supposed to start Jardiance and Ozempic. He states that Ozempic needles were not stable and used to been easily therefore he discontinued the medication. Additionally states that he only received a sample of Jardiance from [place] and thereafter did not receive any further medication therefore he has not been on this medication. States that at home his Dexcom readings have consistently been above 400 for a very long time. He has had subacute to chronic increasing generalized weakness. Initially patient stated that his right leg is weaker, however on exam it appears the left leg has been weaker than the right side. However focality has been inconsistent on exam. No weakness in the upper extremities. Suspect that this may be related to longstanding diabetes. Additionally check CK to evaluate for rhabdomyolysis. PT assessment ordered. Goal to bring patient's blood sugar under good control, evaluate for appropriate disposition planning. Prior to current admission patient has been using walker and is assisted by his with his ADLs. States that he has had home PT before but did not think this to be very beneficial and discontinued it as sessions were not being covered by insurance. May likely be able to be transition out of the ICU once titrated off the insulin drip. Continue IV antibiotics. Discontinue IV fluids. Clinically appearing to be hypervolemic. Bumex 2 mg IV once. Patient typically takes 8 mg of Bumex at home every day. Attestations 2 Medical Necessity Statement*: Continue insulin infusion, overlap with Lantus and sliding scale insulin. Continue IV antibiotics, therapy assessment to guide appropriate disposition planning. Coding Level of Care Code Acute Code for Chg Fwd High MDM includes number and complexity of problems actively addressed during encounter, amount and/or complexity of data reviewed/ordered and described risk of complication, morbidity or mortality of management as documented Diagnoses Diabetes mellitus type 2, uncontrolled E11.65 Hyperglycemia R73.9 Community acquired pneumonia J18.9 BARBARA (obstructive sleep apnea) G47.33 Diastolic CHF I50.33 Heart failure chronicity: acute on chronic Obesity, morbid, BMI 50 or higher E66.01 Chronic atrial fibrillation I48.21 Atrial fibrillation type: permanent Essential hypertension I10 Anticoagulant long-term use Z79.01 Dyslipidemia E78.5
[2023-08-26 10:27] LABS: Creatine Phosphokinase 161 U/L (39-308)
[2023-08-26] MEDS: lidocaine 1% 5 ML in potassium chloride premix 100 ML 26.25 ML IV (10:35)
[2023-08-26] MEDS: insulin glargine 100 units/1 mL 50 UNIT SUBCUT (10:42)
[2023-08-26] MEDS: bumetanide 0.25 mg/mL SDV 10 mL 2 MG IVP (10:42)
[2023-08-26 11:57] LABS: Glucose Point of Care 456 mg/dL (70-110)
[2023-08-26 12:01] LABS: Glucose Point of Care 490 mg/dL (70-110)
[2023-08-26] MEDS: insulin lispro 100 unit/1 mL SUBCUT ×3 (13:04→21:19)
[2023-08-26 17:12] LABS: Glucose Point of Care 557 mg/dL (70-110)
[2023-08-26] MEDS: insulin regular-human 15 UNIT in SYRINGE 1 EACH 10 UNIT IVP (17:41)
[2023-08-26] MEDS: cefTRIAXone 1,000 MG in sodium chloride 0.9% (plus) 50 ML 100 MG IV (17:42)
[2023-08-26 18:51] LABS: Glucose Point of Care 550 mg/dL (70-110)
--- NOTE | 2023-08-26 19:18 | PC.NURSE ---
Shift summary: Pt spent majority of day resting in bed. He has been up and down to BSC multiple times this shift. Towards the end of the shift he started using urinal with much better aim than he has with the BSC. Lungs sounds remain clear. e stayed on his home amount of O2, 2.5lpm/NC. He was given potassium replacement IV, he tolerated that well. He was on insulin gtt this am. That was discontinued and he was started on Lantus and a sliding scale. His sugars ran high. [address] Benitez ordered IVP regular insulin as well as the sliding scale. Subsequent recheck he was still very high, another 10 u regular insulin IV ordered plus another dose of Lantus. He remains in afib, his rate between 55 -80 this shift. He requires 1-2 assist to help him get out of bed. His habitus makes it very difficult. He has had over 1000ml of urine output easily this shift, but so much of it ended up on floor while he used the BSC, the I & O not a true reflection of his output. He He did have a Bm today. His has been at bedside most of shift.
[2023-08-26] MEDS: insulin glargine 100 units/1 mL 30 UNIT SUBCUT (20:18)
[2023-08-26] MEDS: insulin regular-human 10 UNIT in SYRINGE 1 EACH IVP ×2 (20:19→21:23)
[2023-08-26 21:23] LABS: Glucose Point of Care 407 mg/dL (70-110)
[2023-08-27] VITALS (17 sets, daily range): BP systolic 88–162; BP diastolic 49–113; PULSE 64–87; RESP 6–23; TEMP 36.4–37; O2SAT 85–99
[2023-08-27 03:15] LABS: Glucose Point of Care 346 mg/dL (70-110)
[2023-08-27 04:06] LABS: Basophils # 0.1 10^3/uL (0.0-0.1); Basophils % 0.5 %; Eosinophils # 0.2 10^3/uL (0.0-0.8); Eosinophils % 2.4 %; Hematocrit 36.6 % (37-53); Lymphocytes # 1.8 10^3/uL (0.8-4.8); Lymphocytes % 19.3 %; Mean Corpuscular HGB Conc 32.2 g/dL (30-55); Mean Corpuscular Hemoglobin 28.2 pg (27-33); Mean Corpuscular Volume 87.4 fl (82-101); Mean Platelet Volume 9.9 fL (7.4-10.4); Monocytes % 10.1 %; Neutrophils # 6.28 10^3/uL (1.8-7.7); Neutrophils % 67.2 %; Nucleated Red Blood Cells % 0 %; Platelet Count 212 10^3/cmm (157-399); Red Blood Count 4.19 10^6/uL (3.85-5.65); Red Cell Distribution Width 15.1 % (12.1-15.1); White Blood Count 9.36 10^3/uL (3.29-11.43)
[2023-08-27 04:23] LABS: Estmated Average Glucose 272; Hemoglobin A1C 11.1 % (4.0-6.0)
[2023-08-27 04:29] LABS: Alanine Aminotransferase 11 U/L (0-41); Albumin Level 3.5 g/dL (3.5-5.2); Alkaline Phosphatase 77 U/L (40-130); Aspartate Amino Transferase 15 U/L (0-40); Blood Urea Nitrogen 35 mg/dL (8-23); Carbon Dioxide 36 mmol/L (22-29); Chloride 91 mmol/L (98-107); Creatinine Clr Calc Pharmacy 83.4488; Globulin 3.6 g/dL (1.3-4.6); Glomerular Filtration Rate 59.9 mL/min (90-130); Glucose 340 mg/dL (65-115); Osmolality Calculated 301 mOsm/kg (285-295); Sodium 135 mmol/L (136-145); Total Bilirubin 0.4 mg/dL (0.15-1.2); Total Protein 7.1 g/dL (6.6-8.7)
[2023-08-27] MEDS: acetaminophen 325 mg Tablet 650 MG PO (04:48)
[2023-08-27] MEDS: lidocaine 1% 5 ML in potassium chloride premix 100 ML 52.5 ML IV (05:40)
--- NOTE | 2023-08-27 06:25 | PC.NURSE ---
Contacted hospitalist regarding K+ of 3.0. New order received for KCL 20 mEq IV.
[2023-08-27 07:39] LABS: Glucose Point of Care 381 mg/dL (70-110)
[2023-08-27] MEDS: metoprolol tartrate 25 mg Tablet 50 MG PO ×2 (07:51→17:33)
[2023-08-27] MEDS: azithromycin 250 mg Tablet 500 MG PO (07:51)
[2023-08-27] MEDS: insulin glargine 100 units/1 mL 50 UNIT SUBCUT (07:52)
[2023-08-27] MEDS: insulin lispro 100 unit/1 mL SUBCUT ×4 (07:52→20:50)
[2023-08-27] MEDS: atorvastatin 40 mg Tablet 20 MG PO (07:52)
[2023-08-27] MEDS: JARDIANCE 25 MG 25 EACH PO (09:58)
--- NOTE | 2023-08-27 11:17 | P.PN_ITS ---
Subjective 2 Subjective: Blood sugar ranging between 2 57-3 80 today.'s participating with PT yesterday. Urine output today at 2500 cc. Medications: Reviewed: Yes Vitals/I&O/Wt Last Vital Signs Temp 98.0 F 08/27/23 06:00 Pulse 65 08/27/23 09:22 Resp 21 H 08/27/23 08:00 BP 131/77 08/27/23 08:00 Pulse Ox 96 08/27/23 09:22 O2 Del Method Nasal Cannula 08/27/23 09:22 O2 Flow Rate 2 08/27/23 09:22 08/26/23 08/27/23 08/27/23 22:59 06:59 14:59 Intake Total 1930.1 / 2432.900 480 / 2912.900 465 / 465 Output Total 1200 / 1900 800 / 2700 Balance 730.1 / 532.900 -320 / 212.900 465 / 465 Weight last 48 hrs Weight 158.349 kg Weight 158.349 kg Weight 158.531 kg Weight 154.221 kg Physical Exam 2 Narrative: General: No acute distress, AO x3 HEENT: PERRLA, pupils bilaterally equal and reactive, pallors not present Chest: Normal vesicular breath sounds, no added sounds, equal good air entry bilaterally CVS: S1-S2 regular, no murmurs, no tachycardia, no gallops, no rubs Abdomen: Soft, nontender, no organomegaly, bowel sounds present Neuro: No focal deficits, no facial deformity, AO x3, power 5/5 in all limbs Data 08/27/23 03:47 08/27/23 03:47 Micro: Microbiology 08/25/23 18:11 Blood Culture - Preliminary Blood NEGATIVE TO DATE 08/25/23 18:09 Blood Culture - Preliminary Blood NEGATIVE TO DATE A&P Assessment and plan (1) Diabetes mellitus type 2, uncontrolled: (2) Hyperglycemia: (3) Community acquired pneumonia: (4) BARBARA (obstructive sleep apnea): (5) Diastolic CHF: Qualifiers: Heart failure chronicity: acute on chronic Qualified Code(s): I50.33 - Acute on chronic diastolic (congestive) heart failure (6) Obesity, morbid, BMI 50 or higher: (7) Atrial fibrillation: Qualifiers: Atrial fibrillation type: permanent Qualified Code(s): I48.21 - Permanent atrial fibrillation (8) Essential hypertension: (9) Anticoagulant long-term use: (10) Dyslipidemia: Plan Generalized weakness ? He fell yesterday and required lift assist from EMS today ? Maintain fall precautions ? PT and OT consults Type 2 diabetes uncontrolled with HHS ? No evidence of DKA at this time ? His initial serum glucose was 598 mg/dL and decreased to 522 mg/dL after 10 units of IV regular insulin ? Started him on insulin drip ? Monitor glucose closely Sepsis Community-acquired pneumonia ? Leukocytosis, tachypnea, elevated lactic acid and hypoxia ? He is currently on 2 L/min O2; no home oxygen ? He was given sepsis IV bolus in the ED; caution with IV fluids given his CHF history ? Continue ceftriaxone and azithromycin ? Holding antihypertensives; monitor blood pressure closely ? Monitor O2 sats TAYLOR on CKD stage III ? Secondary to dehydration ? Holding diuretics; IV fluids as above ? Monitor serum creatinine avoid nephrotoxic meds Permanent atrial fibrillation ? A-fib despite cardiac ablation ? Continue metoprolol; will hold digoxin given his TAYLOR ? Continue Pradaxa Chronic diastolic CHF ? Holding his bumetanide and metolazone; restart once appropriate Hypertension ? Holding antihypertensives; monitor blood pressure Hyperlipidemia ? Continue statin BARBARA ? Does not wear CPAP Full code VTE prophylaxis: On Pradaxa Plan for today August 26, 2023. Blood sugar better controlled. Discontinue insulin drip. Overlap with Lantus 50 units and high-dose insulin sliding scale. Check HbA1c. Per review of outpatient endocrinology notes, it appears patient was also supposed to start Jardiance and Ozempic. He states that Ozempic needles were not stable and used to been easily therefore he discontinued the medication. Additionally states that he only received a sample of Jardiance from [place] and thereafter did not receive any further medication therefore he has not been on this medication. States that at home his Dexcom readings have consistently been above 400 for a very long time. He has had subacute to chronic increasing generalized weakness. Initially patient stated that his right leg is weaker, however on exam it appears the left leg has been weaker than the right side. However focality has been inconsistent on exam. No weakness in the upper extremities. Suspect that this may be related to longstanding diabetes. Additionally check CK to evaluate for rhabdomyolysis. PT assessment ordered. Goal to bring patient's blood sugar under good control, evaluate for appropriate disposition planning. Prior to current admission patient has been using walker and is assisted by his with his ADLs. States that he has had home PT before but did not think this to be very beneficial and discontinued it as sessions were not being covered by insurance. May likely be able to be transition out of the ICU once titrated off the insulin drip. Continue IV antibiotics. Discontinue IV fluids. Clinically appearing to be hypervolemic. Bumex 2 mg IV once. Patient typically takes 8 mg of Bumex at home every day. Plan for today August 27, 2023. Blood sugar better controlled. Today between 257-380. He has been off insulin drip. Currently on Lantus 50 units in the daytime. Additionally at 30 units at bedtime. Continue with high-dose sliding scale. Patient states that he typically takes U-500 as a Premeal insulin. He is not on any basal insulin at this time. 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 Hb a1c 11.1 . Participating with physical therapy. Therapy notes evaluated. Likely to benefit from continued skilled therapy. Continue IV antibiotics for pneumonia. Resume Bumex 2 mg p.o. daily. CK normal at 161. Transfer of of ICU today Attestations 2 Medical Necessity Statement*: transfer out of ICU to med/surg Coding Level of Care Code Acute Code for Chg Fwd Moderate MDM includes number and complexity of problems actively addressed during encounter, amount and/or complexity of data reviewed/ordered and described risk of complication, morbidity or mortality of management as documented Diagnoses Diabetes mellitus type 2, uncontrolled E11.65 Hyperglycemia R73.9 Community acquired pneumonia J18.9 BARBARA (obstructive sleep apnea) G47.33 Diastolic CHF I50.33 Heart failure chronicity: acute on chronic Obesity, morbid, BMI 50 or higher E66.01 Chronic atrial fibrillation I48.21 Atrial fibrillation type: permanent Essential hypertension I10 Anticoagulant long-term use Z79.01 Dyslipidemia E78.5
[2023-08-27 11:25] LABS: Potassium 3.4 mmol/L (3.5-5.1)
[2023-08-27 12:28] LABS: Glucose Point of Care 450 mg/dL (70-110)
--- NOTE | 2023-08-27 13:17 | PC.NURSE ---
Report called to Lori ESTEBAN. NO further questions. Patient and belongings taken to room 269-1.
[2023-08-27] MEDS: bumetanide 1 mg Tablet 2 MG PO (14:22)
[2023-08-27 16:41] LABS: Glucose Point of Care 378 mg/dL (70-110)
[2023-08-27] MEDS: cefTRIAXone 1,000 MG in sodium chloride 0.9% (plus) 50 ML 100 MG IV (17:32)
[2023-08-27 20:20] LABS: Glucose Point of Care 473 mg/dL (70-110)
[2023-08-27] MEDS: insulin glargine 100 units/1 mL 30 UNIT SUBCUT (20:50)
[2023-08-28] VITALS (7 sets, daily range): BP systolic 116–143; BP diastolic 65–82; PULSE 66–98; RESP 16–20; TEMP 36.5–37; O2SAT 93–97
[2023-08-28 04:43] LABS: Basophils # 0.1 10^3/uL (0.0-0.1); Basophils % 0.6 %; Eosinophils # 0.3 10^3/uL (0.0-0.8); Eosinophils % 2.4 %; Hematocrit 37.4 % (37-53); Lymphocytes # 2.1 10^3/uL (0.8-4.8); Lymphocytes % 17.4 %; Mean Corpuscular HGB Conc 32.6 g/dL (30-55); Mean Corpuscular Hemoglobin 27.9 pg (27-33); Mean Corpuscular Volume 85.4 fl (82-101); Mean Platelet Volume 9.8 fL (7.4-10.4); Monocytes # 1.2 10^3/uL (0.2-0.9); Monocytes % 10.2 %; Neutrophils # 8.14 10^3/uL (1.8-7.7); Neutrophils % 68.8 %; Nucleated Red Blood Cells % 0 %; Platelet Count 247 10^3/cmm (157-399); Red Blood Count 4.38 10^6/uL (3.85-5.65); Red Cell Distribution Width 14.9 % (12.1-15.1); White Blood Count 11.82 10^3/uL (3.29-11.43)
[2023-08-28 05:00] LABS: Alanine Aminotransferase 13 U/L (0-41); Albumin Level 3.7 g/dL (3.5-5.2); Alkaline Phosphatase 75 U/L (40-130); Anion Gap 15.9 (5-19); Aspartate Amino Transferase 16 U/L (0-40); Blood Urea Nitrogen 34 mg/dL (8-23); Calcium 9.8 mg/dL (8.5-10.5); Carbon Dioxide 32 mmol/L (22-29); Chloride 89 mmol/L (98-107); Globulin 3.8 g/dL (1.3-4.6); Glomerular Filtration Rate 50.1 mL/min (90-130); Glucose 364 mg/dL (65-115); Osmolality Calculated 300 mOsm/kg (285-295); Sodium 134 mmol/L (136-145); Total Bilirubin 0.6 mg/dL (0.15-1.2); Total Protein 7.5 g/dL (6.6-8.7)
[2023-08-28 05:04] LABS: Creatinine Clr Calc Pharmacy 69.2469
[2023-08-28 05:05] LABS: Potassium 2.9 mmol/L (3.5-5.1)
[2023-08-28 06:31] LABS: Glucose Point of Care 355 mg/dL (70-110)
[2023-08-28] MEDS: insulin lispro 100 unit/1 mL SUBCUT ×4 (08:15→20:37)
[2023-08-28] MEDS: azithromycin 250 mg Tablet 500 MG PO (08:16)
[2023-08-28] MEDS: bumetanide 1 mg Tablet 2 MG PO ×2 (08:16→18:20)
[2023-08-28] MEDS: metoprolol tartrate 25 mg Tablet 50 MG PO ×2 (08:16→18:19)
[2023-08-28] MEDS: atorvastatin 40 mg Tablet 20 MG PO (08:17)
[2023-08-28] MEDS: insulin glargine 100 units/1 mL 50 UNIT SUBCUT (09:12)
[2023-08-28 11:34] LABS: Glucose Point of Care 460 mg/dL (70-110)
--- NOTE | 2023-08-28 11:50 | PC.OT ---
OT TREATMENT ATTEMPTED TWICE; PATIENT WAS USING URINAL AT FIRST ATTEMPT AND ASKED THAT I RETURN LATER. AT SECOND ATTEMPT; THE PATIENT WAS SLEEPING/SNORING SOUNDLY.
[2023-08-28] MEDS: potassium chloride ER 20 mEq Tablet 60 MEQ PO (12:45)
[2023-08-28] MEDS: lidocaine 1% 5 ML in potassium chloride premix 100 ML 26.25 ML IV (12:48)
--- NOTE | 2023-08-28 15:51 | P.PN_ITS ---
Subjective 2 Subjective: No new complaints. States he feels slightly stronger today. Blood sugar still continuing to be uncontrolled between 3 60-4 60 today. Medications: Reviewed: Yes Vitals/I&O/Wt Last Vital Signs Temp 97.9 F 08/28/23 15:17 Pulse 91 08/28/23 15:17 Resp 16 08/28/23 15:17 BP 116/69 08/28/23 15:17 Pulse Ox 95 08/28/23 15:17 O2 Del Method Nasal Cannula 08/28/23 15:17 O2 Flow Rate 2 08/28/23 08:39 08/28/23 08/28/23 08/28/23 06:59 14:59 22:59 Intake Total 960 / 960 Output Total 625 / 3475 1500 / 1500 Balance -625 / -2120 -540 / -540 Weight last 48 hrs Weight 150.139 kg Physical Exam 2 Narrative: General: No acute distress, AO x3 HEENT: PERRLA, pupils bilaterally equal and reactive, pallors not present Chest: Normal vesicular breath sounds, no added sounds, equal good air entry bilaterally CVS: S1-S2 regular, no murmurs, no tachycardia, no gallops, no rubs Abdomen: Soft, nontender, no organomegaly, bowel sounds present Neuro: No focal deficits, no facial deformity, AO x3, power 5/5 in all limbs Data 08/28/23 04:27 08/28/23 04:27 A&P Assessment and plan (1) Diabetes mellitus type 2, uncontrolled: (2) Hyperglycemia: (3) Community acquired pneumonia: (4) BARBARA (obstructive sleep apnea): (5) Diastolic CHF: Qualifiers: Heart failure chronicity: acute on chronic Qualified Code(s): I50.33 - Acute on chronic diastolic (congestive) heart failure (6) Obesity, morbid, BMI 50 or higher: (7) Atrial fibrillation: Qualifiers: Atrial fibrillation type: permanent Qualified Code(s): I48.21 - Permanent atrial fibrillation (8) Essential hypertension: (9) Anticoagulant long-term use: (10) Dyslipidemia: Plan Generalized weakness ? He fell yesterday and required lift assist from EMS today ? Maintain fall precautions ? PT and OT consults Type 2 diabetes uncontrolled with HHS ? No evidence of DKA at this time ? His initial serum glucose was 598 mg/dL and decreased to 522 mg/dL after 10 units of IV regular insulin ? Started him on insulin drip ? Monitor glucose closely Sepsis Community-acquired pneumonia ? Leukocytosis, tachypnea, elevated lactic acid and hypoxia ? He is currently on 2 L/min O2; no home oxygen ? He was given sepsis IV bolus in the ED; caution with IV fluids given his CHF history ? Continue ceftriaxone and azithromycin ? Holding antihypertensives; monitor blood pressure closely ? Monitor O2 sats TAYLOR on CKD stage III ? Secondary to dehydration ? Holding diuretics; IV fluids as above ? Monitor serum creatinine avoid nephrotoxic meds Permanent atrial fibrillation ? A-fib despite cardiac ablation ? Continue metoprolol; will hold digoxin given his TAYLOR ? Continue Pradaxa Chronic diastolic CHF ? Holding his bumetanide and metolazone; restart once appropriate Hypertension ? Holding antihypertensives; monitor blood pressure Hyperlipidemia ? Continue statin BARBARA ? Does not wear CPAP Full code VTE prophylaxis: On Pradaxa Plan for today August 26, 2023. Blood sugar better controlled. Discontinue insulin drip. Overlap with Lantus 50 units and high-dose insulin sliding scale. Check HbA1c. Per review of outpatient endocrinology notes, it appears patient was also supposed to start Jardiance and Ozempic. He states that Ozempic needles were not stable and used to been easily therefore he discontinued the medication. Additionally states that he only received a sample of Jardiance from [place] and thereafter did not receive any further medication therefore he has not been on this medication. States that at home his Dexcom readings have consistently been above 400 for a very long time. He has had subacute to chronic increasing generalized weakness. Initially patient stated that his right leg is weaker, however on exam it appears the left leg has been weaker than the right side. However focality has been inconsistent on exam. No weakness in the upper extremities. Suspect that this may be related to longstanding diabetes. Additionally check CK to evaluate for rhabdomyolysis. PT assessment ordered. Goal to bring patient's blood sugar under good control, evaluate for appropriate disposition planning. Prior to current admission patient has been using walker and is assisted by his with his ADLs. States that he has had home PT before but did not think this to be very beneficial and discontinued it as sessions were not being covered by insurance. May likely be able to be transition out of the ICU once titrated off the insulin drip. Continue IV antibiotics. Discontinue IV fluids. Clinically appearing to be hypervolemic. Bumex 2 mg IV once. Patient typically takes 8 mg of Bumex at home every day. Plan for today August 27, 2023. Blood sugar better controlled. Today between 257-380. He has been off insulin drip. Currently on Lantus 50 units in the daytime. Additionally at 30 units at bedtime. Continue with high-dose sliding scale. Patient states that he typically takes U-500 as a Premeal insulin. He is not on any basal insulin at this time. 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 Hb a1c 11.1 . Participating with physical therapy. Therapy notes evaluated. Likely to benefit from continued skilled therapy. Continue IV antibiotics for pneumonia. Resume Bumex 2 mg p.o. daily. CK normal at 161. Transfer of of ICU today Plan for today August 28, 2023 Fingersticks uncontrolled today. Adding standing insulin lispro 20 units Premeal insulin. Increase Lantus to 60 units twice daily. Continue corrective high-dose sliding scale for postmeal corrective insulin. Participating with physical therapy. Increase Bumex to 2 mg p.o. twice daily. Overall patient is clinically improving. Continuing ceftriaxone and azithromycin for treatment of pneumonia. He is nearing discharge, however we are awaiting appropriate disposition planning. Patient likely to benefit from skilled therapy, wishes to proceed with transition to SNF. Attestations 2 Medical Necessity Statement*: Continued admission awaiting appropriate disposition planning, ongoing therapy, adjustment in insulin doses. Coding Level of Care Code Acute Code for Chg Fwd Moderate MDM includes number and complexity of problems actively addressed during encounter, amount and/or complexity of data reviewed/ordered and described risk of complication, morbidity or mortality of management as documented Diagnoses Diabetes mellitus type 2, uncontrolled E11.65 Hyperglycemia R73.9 Community acquired pneumonia J18.9 BARBARA (obstructive sleep apnea) G47.33 Diastolic CHF I50.33 Heart failure chronicity: acute on chronic Obesity, morbid, BMI 50 or higher E66.01 Chronic atrial fibrillation I48.21 Atrial fibrillation type: permanent Essential hypertension I10 Anticoagulant long-term use Z79.01 Dyslipidemia E78.5
[2023-08-28] MEDS: insulin lispro 100 unit/1 mL 20 UNIT SUBCUT (16:54)
[2023-08-28 17:04] LABS: Glucose Point of Care 438 mg/dL (70-110)
[2023-08-28 18:24] LABS: Glucose Point of Care 500 mg/dL (70-110)
[2023-08-28] MEDS: insulin glargine 100 units/1 mL 60 UNIT SUBCUT (18:27)
[2023-08-28 20:20] LABS: Glucose Point of Care 432 mg/dL (70-110)
[2023-08-28] MEDS: cefTRIAXone 1,000 MG in sodium chloride 0.9% (plus) 50 ML 100 MG IV (20:24)
[2023-08-28] MEDS: acetaminophen 325 mg Tablet 650 MG PO (22:36)
[2023-08-29] VITALS: BP 108/70; PULSE 78; RESP 18; TEMP 36.4; O2SAT 97
[2023-08-29 01:56] VITALS: O2SAT 96
[2023-08-29 04:00] VITALS: BP 108/72; PULSE 76; RESP 19; TEMP 36.6; O2SAT 96
[2023-08-29 06:18] LABS: Glucose Point of Care 325 mg/dL (70-110)
[2023-08-29] MEDS: insulin lispro 100 unit/1 mL 20 UNIT SUBCUT ×2 (06:31→12:16)
[2023-08-29 08:08] VITALS: BP 119/74; PULSE 87; RESP 18; TEMP 36.5; O2SAT 97
[2023-08-29] MEDS: potassium chloride ER 20 mEq Tablet PO (08:36)
[2023-08-29] MEDS: atorvastatin 40 mg Tablet 20 MG PO (08:36)
[2023-08-29] MEDS: insulin lispro 100 unit/1 mL SUBCUT ×2 (08:37→12:15)
[2023-08-29] MEDS: insulin glargine 100 units/1 mL 60 UNIT SUBCUT (08:37)
[2023-08-29] MEDS: metoprolol tartrate 25 mg Tablet 50 MG PO (08:37)
[2023-08-29] MEDS: azithromycin 250 mg Tablet 500 MG PO (08:37)
[2023-08-29] MEDS: JARDIANCE 25 MG 25 EACH PO (08:37)
[2023-08-29] MEDS: bumetanide 1 mg Tablet 2 MG PO (08:37)
[2023-08-29] MEDS: pantoprazole DR 40 mg Tablet PO (08:37)
[2023-08-29 09:43] LABS: Glucose Point of Care 295 mg/dL (70-110)
[2023-08-29 11:15] LABS: SARS Covid-2 Antigen negative (Negative)
[2023-08-29 11:22] LABS: Glucose Point of Care 337 mg/dL (70-110)
[2023-08-29 12:23] VITALS: BP 142/79; PULSE 78; RESP 18; TEMP 36.4; O2SAT 94
[2023-08-29 12:41] LABS: Digoxin 0.8 ng/mL (0.6-1.2)
[2023-08-29 13:16] VITALS: BP 142/79; PULSE 78; RESP 18; TEMP 36.4; O2SAT 94
--- NOTE | 2023-08-29 17:41 | P.DS_ITS ---
Discharge Providers Date of Admission: 08/25/23 17:46 Date of Discharge: August 29, 2023 Attending Provider at Admission: Sarina Campbell MD Attending Provider at Discharge: Sarahy Benitez MD Primary Care Provider: Marissa Ruiz Diagnoses at Discharge Discharge Diagnosis (1) Diabetes mellitus type 2, uncontrolled: Status: Acute (2) Hyperglycemia: Status: Acute (3) Community acquired pneumonia: Status: Acute (4) BARBARA (obstructive sleep apnea): Status: Acute (5) Diastolic CHF: Status: Acute Qualifiers: Heart failure chronicity: acute on chronic Qualified Code(s): I50.33 - Acute on chronic diastolic (congestive) heart failure (6) Obesity, morbid, BMI 50 or higher: Status: Acute (7) Atrial fibrillation: Status: Acute Qualifiers: Atrial fibrillation type: permanent Qualified Code(s): I48.21 - Permanent atrial fibrillation (8) Essential hypertension: Status: Acute (9) Anticoagulant long-term use: Status: Acute (10) Dyslipidemia: Status: Acute Reason for Visit Reason for Visit: HYPERGLYCEMIA Hospital Course Hospital Course 68 year old male with chronic diastolic CHF, restrictive lung disease due to obesity, BARBARA, permanent atrial fibrillation on Pradaxa, type 2 diabetes mellitus with neuropathy, hypertension, hyperlipidemia, and inflammatory arthritis presenting with lethargy and shortness of breath. He has had increased fatigue and generalized weakness for the past 2 weeks. He fell yesterday and called EMS for lift assist. His glucometer read his blood sugar as high and it was 550 mg/dL for EMS. Patient reports that he has been having uncontrolled blood sugar for the past several months, ranging typically in the 400s. He is supposed to be on U-500 plus Jardiance plus Victoza, however he has not been using anything except the U-500. He has had difficulty coordinating U-500's with his mealtime. He often skips meals and does not take a sliding scale U-500 at that time. Likely that is elevated blood sugars were related to a combination of insufficient understanding of insulin use and insulin resistance. He was admitted to the ICU initially and started on insulin drip. There were no signs of DKA or HHS however blood sugar was as high as 598 upon arrival in spite of 10 units of IV regular insulin. Eventually he was transitioned to basal bolus insulin doses of which were continuously titrated during the admission as per blood sugar response. As of today patient is on 60 units of Lantus twice daily and 20 units of Lispro Premeal along with sliding scale. With this regimen currently his blood sugar has ranged between 2 97-3 38 today. This appears to be better over his sugar in the recent months. At the time of discharge insulin has been further increased to Lantus at 80 units twice daily, Premeal insulin at 30 units 3 times daily plus coverage ordered. HbA1c is currently at 11. Appointment requested with endocrinology within the next 7 to 10 days for further adjustment of insulin/transition back to U-500. Patient is being transitioned to SNF. He was significantly deconditioned. Reported proximal muscle weakness in his thighs, this was improving with therapy. Suspect this may be related to his uncontrolled diabetes. Physical therapy assessment was sought and he will likely benefit from continued skilled therapy. Dose of insulin may be adjusted further at the [facility] after review by [facility] physician. Patient was additionally diagnosed with a pneumonia. Chest x-ray from admission had shown a right basilar opacity. He was treated with ceftriaxone and azithromycin as inpatient. This is being transitioned to Augmentin and 1 remaining day of azithromycin at discharge. Physical Exam Narrative: General: No acute distress, AO x3 HEENT: PERRLA, pupils bilaterally equal and reactive, pallors not present Chest: Normal vesicular breath sounds, no added sounds, equal good air entry bilaterally CVS: S1-S2 regular, no murmurs, no tachycardia, no gallops, no rubs Abdomen: Soft, nontender, no organomegaly, bowel sounds present Neuro: No focal deficits, no facial deformity, AO x3, power 5/5 in all limbs Discharge Data Studies Completed and Pending Completed Studies During Hospitalization Category Date Time Status XR chest 1V portable [id number] Stat Exams 08/25/23 16:34 Completed XR knee LT 3V* [id number] Stat Exams 08/25/23 16:34 Completed Pending at discharge Category Date Time Status Blood Culture Stat Lab 08/25/23 18:11 Results Radiology Impressions Chest X-Ray 08/25/23 16:34 IMPRESSION: Right basilar opacity. Knee X-Ray 08/25/23 16:34 IMPRESSION: No acute findings. Laboratory Results WBC 11.82 10^3/uL (3.29-11.43) H 08/28/23 04:27 RBC 4.38 10^6/uL (3.85-5.65) 08/28/23 04:27 Hgb 12.20 g/dL (11.27-16.99) 08/28/23 04:27 Hct 37.4 % (37-53) 08/28/23 04: MCV 85.4 fl (82-101) 08/28/23 04:27 MCH 27.9 pg (27-33) 08/28/23 04: MCHC 32.6 g/dL (30-55) 08/28/23 04:27 RDW 14.9 % (12.1-15.1) 08/28/23 04:27 Plt Count 247 10^3/cmm (157-399) 08/28/23 04:27 MPV 9.8 fL (7.4-10.4) 08/28/23 04:27 Neut % (Auto) 68.8 % 08/28/23 04:27 Lymph % (Auto) 17.4 % 08/28/23 04:27 [place] % (Auto) 10.2 % 08/28/23 04:27 Eos % (Auto) 2.4 % 08/28/23 04:27 Baso % (Auto) 0.6 % 08/28/23 04:27 Neut # (Auto) 8.14 10^3/uL (1.8-7.7) H 08/28/23 04:27 Lymph # (Auto) 2.1 10^3/uL (0.8-4.8) 08/28/23 04:27 Wetzel # (Auto) 1.2 10^3/uL (0.2-0.9) H 08/28/23 04:27 Eos # (Auto) 0.3 10^3/uL (0.0-0.8) 08/28/23 04:27 Baso # (Auto) 0.1 10^3/uL (0.0-0.1) 08/28/23 04:27 Nucleated RBC % (auto) 0 % 08/28/23 04: Nucleated RBCs # 0.0 /100WBC 08/28/23 04:27 PT 19.90 SECONDS (12.1-14.9) H 08/25/23 16:15 INR 1.63 (0.8-1.2) H 08/25/23 16:15 Sodium 134 mmol/L (136-145) L 08/28/23 04:27 Potassium 2.9 mmol/L (3.5-5.1) L 08/28/23 04:27 Chloride 89 mmol/L (98-107) L 08/28/23 04:27 Carbon Dioxide 32 mmol/L (22-29) H 08/28/23 04:27 Anion Gap 15.9 (5-19) 08/28/23 04:27 BUN 34 mg/dL (8-23) H 08/28/23 04:27 Creatinine 1.4 mg/dL (0.7-1.2) H 08/28/23 04:27 GFR Calculation 50.1 mL/min (90-130) L 08/28/23 04:27 Glucose 364 mg/dL (65-115) H 08/28/23 04:27 POC Glucose 337 mg/dL (70-110) H 08/29/23 11:20 Estimat Average Glucose 272 08/27/23 03:47 Hemoglobin A1c 11.1 % (4.0-6.0) H 08/27/23 03:47 Calculated Osmolality 300 mOsm/kg (285-295) H 08/28/23 04:27 Lactic Acid 2.8 mmol/L (0.5-2.2) H 08/25/23 16:15 Lactic Acid (Sepsis) 1.8 mmol/L (0.5-2.2) 08/25/23 19:56 Calcium 9.8 mg/dL (8.5-10.5) 08/28/23 04:27 Phosphorus 2.9 mg/dL (2.5-4.5) 08/26/23 03:38 Magnesium 2.6 mg/dL (1.7-2.3) H 08/26/23 03:38 Total Bilirubin 0.6 mg/dL (0.15-1.2) 08/28/23 04:27 AST 16 U/L (0-40) 08/28/23 04:27 ALT 13 U/L (0-41) 08/28/23 04:27 Alkaline Phosphatase 75 U/L (40-130) 08/28/23 04:27 Creatine Kinase 161 U/L (39-308) 08/26/23 03:38 NT-Pro-B Natriuret Pep 480 pg/mL (0-125) H 08/25/23 16:15 Total Protein 7.5 g/dL (6.6-8.7) 08/28/23 04:27 Albumin 3.7 g/dL (3.5-5.2) 08/28/23 04:27 Globulin 3.8 g/dL (1.3-4.6) 08/28/23 04:27 TSH 2.01 uIU/mL (0.27-4.20) 08/25/23 16:15 Urine Color Yellow (Yellow) 08/25/23 17:30 Urine Appearance Clear (CLEAR) 08/25/23 17:30 Urine pH 7 (5-7) 08/25/23 17:30 Ur Specific [place] 1.010 (1.005-1.030) 08/25/23 17:30 Urine Protein Neg (Negative) 08/25/23 17:30 Urine Glucose (UA) 4+ (Normal) H 08/25/23 17:30 Urine Ketones Negative (Negative) 08/25/23 17:30 Urine Blood Neg (Negative) 08/25/23 17:30 Urine Nitrate Negative (Negative) 08/25/23 17:30 Urine Bilirubin Neg (Negative) 08/25/23 17:30 Urine Urobilinogen Norm mg/dL (Negative) 08/25/23 17:30 Ur Leukocyte Esterase Negative (Negative) 08/25/23 17:30 Digoxin 0.8 ng/mL (0.6-1.2) 08/29/23 11:59 Serum Ketones Negative (Negative) 08/25/23 16:15 SARS-CoV-2 Ag (Rapid) negative (Negative) 08/29/23 10:52 Vitals Last Vital Signs Temp 97.6 F 08/29/23 13:16 Pulse 78 08/29/23 13:16 Resp 18 08/29/23 13:16 BP 142/79 08/29/23 13:16 Pulse Ox 94 08/29/23 13:16 O2 Del Method Nasal Cannula 08/29/23 12:23 O2 Flow Rate 2 08/29/23 01:56 Discharge Plan Discharge Patient Disposition: Xfer SNF Condition: Stable Prescriptions: New Lantus U-100 Insulin 100 unit/mL Solution 80 unit SUBCUT BID 30 Days Qty: 48 0RF azithromycin 250 mg Tablet 500 mg PO DAILY 1 Days Qty: 2 0RF Humalog U-100 Insulin 100 unit/mL Solution 0 unit SUBCUT WM&BEDTIME 30 Days Qty: 30 0RF pantoprazole 40 mg Tablet,Delayed Release (Dr/Ec) 40 mg PO DAILY 30 Days Qty: 30 0RF Humalog U-100 Insulin 100 unit/mL Solution 30 unit SUBCUT TIDAC 30 Days Qty: 30 0RF Jardiance 25 mg tablet 25 mg PO DAILY 30 Days Qty: 30 0RF amoxicillin-pot clavulanate 875-125 mg tablet 1 tab PO BID 3 Days Qty: 6 0RF Continued Pradaxa 150 mg capsule 150 mg PO BID pravastatin 40 mg tablet 40 mg PO DAILY magnesium oxide 400 mg magnesium tablet 800 mg PO BID metoprolol tartrate 100 mg tablet 50 mg PO BID pregabalin 100 mg capsule 100 mg PO BID MDD 2 Qty: 60 1RF digoxin 250 mcg (0.25 mg) tablet 250 mcg PO DAILY Hold Instructions: Resume on 06/07/22. potassium chloride 20 mEq tablet extended release See Rx Instructions .ROUTE .COMPLEX Qty: 60 0RF Rx Instructions: 40 mEq in AM, 40mEq in the evening (DME) Dexcom G6 Supervisory Air Intercept Controller Misc See Rx Instructions .Route Qty: 1 3RF Rx Instructions: Check BS 4 times a day. (DME) Diabetic shoes with 3 inserts See Rx Instructions .Route .MEDSUPPLY Qty: 1 0RF Rx Instructions: As directed J P & O (DME) BD SafetyGlide Insulin Syringe 0.5 mL 31 gauge x 15/64 syringe See Rx Instructions .Route Qty: 100 0RF Rx Instructions: As directed (DME) Dexcom G6 Sensor Device See Rx Instructions .ROUTE .COMPLEX Qty: 6 3RF Dose Instruction: USE 1 SENSOR UNDER THE SKIN DIRECTED TO MONITOR GLUCOSE READINGS Rx Instructions: USE 1 SENSOR UNDER THE SKIN DIRECTED TO MONITOR GLUCOSE READINGS (DME) Dexcom G6 Transmitter Device See Rx Instructions .Route Qty: 1 3RF Rx Instructions: As directed Changed bumetanide 2 mg tablet 2 mg PO BID Qty: 60 0RF Discontinued Humulin R U-500 (Conc) Insulin 500 unit/mL Solution See Rx Instructions .ROUTE .COMPLEX Rx Instructions: INJECT 3 TIMES DAILY WITH MEALS PER SLIDING SCALE. Discharge Orders: Discharge Order (Routine); Ordered 08/29/23 Ordered By: Sarahy Benitez Referrals: [facility] [Outside] Ovidio Bee MD [Physician] - 1 week (We have notified your physician's clinic of the need for a follow-up appointment to be scheduled. If you have not heard from them within the next 2 business days, please call them directly. ) Discharge Diet: Diabetic Discharge Activity: As per PT/OT instructions Patient Instructions: Amoxicillin/Clavulanate Potassium (By mouth), Azithromycin (By mouth), Opioid Safety Activity Restrictions/Additional Instructions: patient's hoem dose of U 500 has been discontinued due to difficulty coordinating with meal time- he has inconsistent meal intake. Instead started on basal bolus regimen. Currently at lantus 80 U BID and insulin lispro 30 U pre meals. Additionally ordered for sliding scale insulin to be used for correction. These insulin doses may need to be readjusted Discharge Attestations Time Spent in Discharge Care*: greater than 30 min Quality Metrics Clinical Quality Measures [ No reported AMI, CVA or VTE this stay] Coding Level of Care Code Acute Code for Chg Fwd Diagnoses Diabetes mellitus type 2, uncontrolled E11.65 Hyperglycemia R73.9 Community acquired pneumonia J18.9 BARBARA (obstructive sleep apnea) G47.33 Diastolic CHF I50.33 Heart failure chronicity: acute on chronic Obesity, morbid, BMI 50 or higher E66.01 Chronic atrial fibrillation I48.21 Atrial fibrillation type: permanent Essential hypertension I10 Anticoagulant long-term use Z79.01 Dyslipidemia E78.5
== END 2023-08-29 13:17 | disposition skilled nursing facility (03) | DRG 637 ==
LOC: ER 17:47 → ICU 18:17 → MEDSURG 08-27 13:50
PROVIDERS: Internal Medicine; Admitting Provider Student in an Organized Health Care Education/Training Program; Emergency Provider Emergency Medicine; PCP Physician Assistant; Visit Provider Student in an Organized Health Care Education/Training Program
DX: E11.65 Type 2 diabetes mellitus with hyperglycemia (principal); J18.9 Pneumonia, unspecified organism; I13.0 Hypertensive heart and chronic kidney disease with heart failure and stage 1 through stage 4 chronic kidney disease, or unspecified chronic kidney disease; I50.32 Chronic diastolic (congestive) heart failure; N17.9 Acute kidney failure, unspecified; Z68.43 Body mass index [BMI] 50.0-59.9, adult; I48.20 Chronic atrial fibrillation, unspecified; E11.40 Type 2 diabetes mellitus with diabetic neuropathy, unspecified; E11.22 Type 2 diabetes mellitus with diabetic chronic kidney disease; N18.30 Chronic kidney disease, stage 3 unspecified; Z79.4 Long term (current) use of insulin; Z79.84 Long term (current) use of oral hypoglycemic drugs; W19.XXXA Unspecified fall, initial encounter; E66.01 Morbid (severe) obesity due to excess calories; Z79.01 Long term (current) use of anticoagulants; E78.5 Hyperlipidemia, unspecified; J98.4 Other disorders of lung
CPT/HCPCS: 36415; 36416; 71045; 73562; 80048; 80053; 80069; 80162; 81003; 82009; 82550; 82962; 83036; 83605; 83735; 83880; 84100; 84132; 84443; 85025; 85610; 87040; 87426; 93005; 94664; 96365; 96367; 96372; 96375; 97110; 97116; 97161; 97165; 97530; 99285; J0456; J0696; J1815; J3480; J3490; J7030; J7040; J7050; Q0144

== ENCOUNTER → 2023-09-03 09:37 | Outpatient (BNVA) | payer OTHER, SELFPAY | PROVIDERS: PCP Physician Assistant; Visit Provider Internal Medicine | DX: E11.65 Type 2 diabetes mellitus with hyperglycemia (principal); Z09 Encounter for follow-up examination after completed treatment for conditions other than malignant neoplasm; E66.01 Morbid (severe) obesity due to excess calories; Z68.43 Body mass index [BMI] 50.0-59.9, adult; E78.5 Hyperlipidemia, unspecified; Z79.4 Long term (current) use of insulin; Z79.84 Long term (current) use of oral hypoglycemic drugs | CPT/HCPCS: 99214 ==

== ENCOUNTER → 2023-09-24 08:42 | Outpatient (BNVA) | payer OTHER, SELFPAY | PROVIDERS: PCP Physician Assistant; Visit Provider Podiatrist Foot & Ankle Surgery | DX: E11.8 Type 2 diabetes mellitus with unspecified complications (principal); E11.42 Type 2 diabetes mellitus with diabetic polyneuropathy; L60.3 Nail dystrophy; I73.9 Peripheral vascular disease, unspecified; L84 Corns and callosities; Z79.4 Long term (current) use of insulin | CPT/HCPCS: 11056; 11721 ==

== ENCOUNTER → 2023-12-17 07:49 | Outpatient (BNVA) | payer OTHER, SELFPAY | PROVIDERS: PCP Physician Assistant; Visit Provider Internal Medicine | DX: Z09 Encounter for follow-up examination after completed treatment for conditions other than malignant neoplasm; E11.65 Type 2 diabetes mellitus with hyperglycemia; E78.5 Hyperlipidemia, unspecified; E66.01 Morbid (severe) obesity due to excess calories; Z68.43 Body mass index [BMI] 50.0-59.9, adult | CPT/HCPCS: 99214 ==

== ENCOUNTER → 2024-01-31 09:05 | Outpatient (BNVA) | payer OTHER, SELFPAY | PROVIDERS: PCP Physician Assistant; Visit Provider Nurse Practitioner Family | DX: I48.91 Unspecified atrial fibrillation (principal); Z98.890 Other specified postprocedural states; I11.0 Hypertensive heart disease with heart failure; I50.33 Acute on chronic diastolic (congestive) heart failure; E78.5 Hyperlipidemia, unspecified; E11.65 Type 2 diabetes mellitus with hyperglycemia; Z79.4 Long term (current) use of insulin; G47.30 Sleep apnea, unspecified | CPT/HCPCS: 99214 ==

== ENCOUNTER → 2024-03-19 07:59 | Outpatient (BNVA) | payer OTHER, SELFPAY | PROVIDERS: PCP Physician Assistant; Visit Provider Internal Medicine | DX: E13.9 Other specified diabetes mellitus without complications (principal); Z09 Encounter for follow-up examination after completed treatment for conditions other than malignant neoplasm; E66.01 Morbid (severe) obesity due to excess calories; Z68.43 Body mass index [BMI] 50.0-59.9, adult; E78.5 Hyperlipidemia, unspecified | CPT/HCPCS: 99214 ==

== ENCOUNTER → 2024-03-31 08:24 | Outpatient (BNVA) | payer OTHER, SELFPAY | PROVIDERS: PCP Physician Assistant; Visit Provider Podiatrist Foot & Ankle Surgery | DX: E11.8 Type 2 diabetes mellitus with unspecified complications (principal); E11.42 Type 2 diabetes mellitus with diabetic polyneuropathy; L60.3 Nail dystrophy; I73.9 Peripheral vascular disease, unspecified; L84 Corns and callosities; Z79.4 Long term (current) use of insulin | CPT/HCPCS: 11056; 11721 ==

== ENCOUNTER 2024-06-11 11:21 | Outpatient (CLI) | payer OTHER, SELFPAY ==
[2024-06-11 12:26] LABS: Estmated Average Glucose 189; Hemoglobin A1C 8.2 % (4.0-6.0)
[2024-06-11 12:30] LABS: Alanine Aminotransferase 9 U/L (0-41); Albumin Level 3.5 g/dL (3.5-5.2); Alkaline Phosphatase 66 U/L (40-130); Aspartate Amino Transferase 12 U/L (0-40); Blood Urea Nitrogen 26 mg/dL (8-23); Carbon Dioxide 32 mmol/L (22-29); Chloride 95 mmol/L (98-107); Cholesterol 105 mg/dL (0-200); Globulin 3.5 g/dL (1.3-4.6); Glomerular Filtration Rate 66.2 mL/min (90-130); Glucose 145 mg/dL (65-115); HDL Cholesterol 30 mg/dL (60-100); LDL Cholesterol Calculated 36 mg/dL (50-129); Osmolality Calculated 291 mOsm/kg (285-295); Sodium 137 mmol/L (136-145); Total Bilirubin 0.4 mg/dL (0.15-1.2); Triglycerides 194 mg/dL (0-150)
[2024-06-11 12:36] LABS: Creatinine Urine, Random 28 mg/dL (39-259); Microalbum Creatinine Ratio Ur 36 mg/dL (0-20); Microalbumin Random Urine 1 ug/dL (0-20)
== END 2024-06-11 11:22 | disposition home or self-care (01) ==
PROVIDERS: PCP Physician Assistant; Visit Provider Internal Medicine
DX: E11.65 Type 2 diabetes mellitus with hyperglycemia (principal); E78.5 Hyperlipidemia, unspecified; Z79.891 Long term (current) use of opiate analgesic
CPT/HCPCS: 36415; 80053; 80061; 82044; 83036

== ENCOUNTER 2024-06-17 07:40 | Outpatient (CLI) | payer OTHER, SELFPAY ==
[2024-06-17 08:59] LABS: Alanine Aminotransferase 11 U/L (0-41); Albumin Level 3.8 g/dL (3.5-5.2); Alkaline Phosphatase 71 U/L (40-130); Anion Gap 15.3 (5-19); Aspartate Amino Transferase 13 U/L (0-40); Blood Urea Nitrogen 37 mg/dL (8-23); Calcium 9.3 mg/dL (8.5-10.5); Carbon Dioxide 32 mmol/L (22-29); Chloride 91 mmol/L (98-107); Chol HDL Ratio 4.03 mg/dL (1.0-5.00); Cholesterol 121 mg/dL (0-200); Globulin 3.4 g/dL (1.3-4.6); Glomerular Filtration Rate 54.6 mL/min (90-130); Glucose 196 mg/dL (65-115); HDL Cholesterol 30 mg/dL (60-100); LDL Cholesterol Calculated 56 mg/dL (50-129); LDL HDL Ratio 1.87 RATIO (0.00-3.22); Osmolality Calculated 294 mOsm/kg (285-295); Potassium 3.3 mmol/L (3.5-5.1); Sodium 135 mmol/L (136-145); Total Bilirubin 0.5 mg/dL (0.15-1.2); Total Protein 7.2 g/dL (6.6-8.7); Triglycerides 174 mg/dL (0-150)
[2024-06-17 09:10] LABS: Creatinine Urine, Random 20 mg/dL (39-259); Microalbumin Random Urine 1 ug/dL (0-20)
[2024-06-17 09:11] LABS: Microalbum Creatinine Ratio Ur 50 mg/dL (0-20)
[2024-06-17 09:46] LABS: Estmated Average Glucose 180; Hemoglobin A1C 7.9 % (4.0-6.0)
== END 2024-06-17 07:41 | disposition home or self-care (01) ==
LOC: LAB 07:41
PROVIDERS: PCP Physician Assistant; Visit Provider Internal Medicine
DX: E11.65 Type 2 diabetes mellitus with hyperglycemia (principal); E78.5 Hyperlipidemia, unspecified; E66.01 Morbid (severe) obesity due to excess calories; Z68.43 Body mass index [BMI] 50.0-59.9, adult; E87.6 Hypokalemia; Z79.891 Long term (current) use of opiate analgesic
CPT/HCPCS: 36415; 80053; 80061; 82044; 83036; 99214

== ENCOUNTER → 2024-06-30 08:35 | Outpatient (BNVA) | payer OTHER, SELFPAY | PROVIDERS: PCP Physician Assistant; Visit Provider Podiatrist Foot & Ankle Surgery | DX: E11.42 Type 2 diabetes mellitus with diabetic polyneuropathy (principal); L60.3 Nail dystrophy; L84 Corns and callosities; I73.9 Peripheral vascular disease, unspecified; Z79.4 Long term (current) use of insulin | CPT/HCPCS: 11056; 11721 ==

== ENCOUNTER → 2024-07-30 14:12 | Outpatient (BNVA) | payer OTHER, SELFPAY | PROVIDERS: PCP Physician Assistant; Visit Provider Internal Medicine | DX: I11.0 Hypertensive heart disease with heart failure (principal); I50.30 Unspecified diastolic (congestive) heart failure; I48.21 Permanent atrial fibrillation; Z79.01 Long term (current) use of anticoagulants; E78.5 Hyperlipidemia, unspecified; E66.01 Morbid (severe) obesity due to excess calories; Z68.43 Body mass index [BMI] 50.0-59.9, adult; E13.9 Other specified diabetes mellitus without complications | CPT/HCPCS: 99213 ==

== ENCOUNTER → 2024-09-16 08:23 | Outpatient (BNVA) | payer OTHER, SELFPAY | PROVIDERS: PCP Physician Assistant; Visit Provider Internal Medicine | DX: E11.65 Type 2 diabetes mellitus with hyperglycemia (principal); E78.5 Hyperlipidemia, unspecified; E66.01 Morbid (severe) obesity due to excess calories; Z68.43 Body mass index [BMI] 50.0-59.9, adult | CPT/HCPCS: 99214 ==

== ENCOUNTER → 2024-09-29 08:02 | Outpatient (BNVA) | payer OTHER, SELFPAY | PROVIDERS: PCP Physician Assistant; Visit Provider Podiatrist Foot & Ankle Surgery | DX: E11.42 Type 2 diabetes mellitus with diabetic polyneuropathy (principal); L60.3 Nail dystrophy; L84 Corns and callosities; I73.9 Peripheral vascular disease, unspecified; E11.8 Type 2 diabetes mellitus with unspecified complications; Z79.4 Long term (current) use of insulin | CPT/HCPCS: 11056; 11721 ==

== ENCOUNTER 2024-12-16 07:41 | Outpatient (CLI) | payer OTHER, SELFPAY ==
[2024-12-16 09:14] LABS: Alanine Aminotransferase 11 U/L (0-41); Albumin Level 3.7 g/dL (3.5-5.2); Alkaline Phosphatase 62 U/L (40-130); Anion Gap 16.3 (5-19); Aspartate Amino Transferase 12 U/L (0-40); Blood Urea Nitrogen 47 mg/dL (8-23); Calcium 9.4 mg/dL (8.5-10.5); Carbon Dioxide 30 mmol/L (22-29); Chloride 92 mmol/L (98-107); Cholesterol 109 mg/dL (0-200); Globulin 3.7 g/dL (1.3-4.6); Glucose 161 mg/dL (65-115); HDL Cholesterol 33 mg/dL (60-100); Osmolality Calculated 296 mOsm/kg (285-295); Potassium 3.3 mmol/L (3.5-5.1); Sodium 135 mmol/L (136-145); Total Protein 7.4 g/dL (6.6-8.7); Triglycerides 154 mg/dL (0-150)
[2024-12-16 12:46] LABS: Estmated Average Glucose 151; Hemoglobin A1C 6.9 % (4.0-6.0)
== END 2024-12-16 07:42 ==
LOC: LAB 07:43
PROVIDERS: PCP Physician Assistant; Visit Provider Internal Medicine
DX: E78.5 Hyperlipidemia, unspecified (principal); E66.01 Morbid (severe) obesity due to excess calories; E11.65 Type 2 diabetes mellitus with hyperglycemia; Z68.43 Body mass index [BMI] 50.0-59.9, adult; Z79.891 Long term (current) use of opiate analgesic
CPT/HCPCS: 36415; 80053; 80061; 83036; 99214

== ENCOUNTER → 2025-01-18 13:29 | Outpatient (BNVA) | payer OTHER, SELFPAY | PROVIDERS: PCP Physician Assistant; Visit Provider Podiatrist Foot & Ankle Surgery | DX: E11.42 Type 2 diabetes mellitus with diabetic polyneuropathy (principal); L60.3 Nail dystrophy; L84 Corns and callosities; I73.9 Peripheral vascular disease, unspecified; E11.8 Type 2 diabetes mellitus with unspecified complications; Z79.4 Long term (current) use of insulin | CPT/HCPCS: 11056; 11721 ==

== ENCOUNTER → 2025-03-17 09:12 | Outpatient (BNVA) | payer OTHER, SELFPAY | PROVIDERS: PCP Physician Assistant; Visit Provider Internal Medicine Endocrinology, Diabetes & Metabolism | DX: E78.5 Hyperlipidemia, unspecified (principal); E66.01 Morbid (severe) obesity due to excess calories; Z68.43 Body mass index [BMI] 50.0-59.9, adult; E11.65 Type 2 diabetes mellitus with hyperglycemia | CPT/HCPCS: 99213 ==